=== PATIENT | female | born 1950 | race African-American/Black ===

== ENCOUNTER 2018-07-20 13:35 | Inpatient (IN) | payer MEDICARE ==
[~2018-07-20] VITALS: Ht 160 cm; Wt 73.2 kg
[2018-07-20 13:36] VITALS: BP 110/71
--- NOTE | 2018-07-20 13:36 | NUR ---
ED Nurse Note: Pt from home brought in by ambulance due to Altered level consciousness. Per famiy member, pt is more altered than usual x 3 weeks. BS check was critically high en route, 500ml NS given by EMS. Pt is awake and opens eyes but unresponsive to verbal commands, withdraws to painful stimulation such as rubbing sternum.
--- NOTE | 2018-07-20 13:40 | NUR ---
ED Nurse Note: Noted small skin tear on patient's left buttock.
--- NOTE | 2018-07-20 13:45 | NUR ---
ED Nurse Note: Patient's blood sugar was 538. Dr Carmona aware and notified
--- NOTE | 2018-07-20 14:25 | NUR ---
ED Nurse Note: Pt taken to CT.
[2018-07-20 14:30] VITALS: BP_SYST 105; BP_SYST 95; BP_DIAS 66; BP_DIAS 72
--- NOTE | 2018-07-20 14:31 | NUR ---
ED Nurse Note: Pt back from CT.
[2018-07-20 14:39] LABS: HEMATOCRIT 38.8 % (37.0-47.0); HEMOGLOBIN 12.7 G/DL (12.0-16.0); MEAN CORPUSCULAR VOLUME 91 FL (80-99); PLATELET COUNT 144 K/UL (150-450); RED BLOOD COUNT 4.25 M/UL (4.20-5.40); RED CELL DISTRIBUTION WIDTH 14.7 % (11.6-14.8); WHITE BLOOD COUNT 12.9 K/UL (4.8-10.8)
--- NOTE | 2018-07-20 15:04 | Diagnostic Imaging Report ---
Indications: Altered level of consciousness Technique: Spiral acquisitions obtained through the brain. Angled axial and coronal 5 x 5 mm slices were reconstructed. Total dose length product 1326.74 mGycm. CTDI vol(s) 70.38 mGy. Dose reduction achieved using automated exposure control Comparison: None. Findings: There is age-related enlargement of the ventricles and extra axial CSF spaces. No acute intracranial hemorrhage or edema, mass effect, nor midline shift. Normal pena-white differentiation. Normal-sized ventricles and extra axial CSF spaces. Visualized orbits and sinuses are unremarkable. Mastoids are clear. The calvarium is intact. Impression: Mild age-related volume loss Negative for acute intracranial bleed or mass effect The CT scanner at [facility] is accredited by the [employer] and the scans are performed using protocols designed to limit radiation exposure to as low as reasonably achievable to attain images of sufficient resolution adequate for diagnostic evaluation.
--- NOTE | 2018-07-20 15:08 | NUR ---
ED Nurse Note: Urine specimen sent.
[2018-07-20 15:11] LABS: ALANINE AMINOTRANSFERASE 33 U/L (12-78); ALBUMIN 2.9 G/DL (3.4-5.0); ALBUMIN/GLOBULIN RATIO 0.8 (1.0-2.7); ALKALINE PHOSPHATASE 94 U/L (46-116); ANION GAP 25 mmol/L (5-15); ASPARTATE AMINO TRANSFERASE 80 U/L (15-37); BILIRUBIN,TOTAL 1.1 MG/DL (0.2-1.0); BLOOD UREA NITROGEN 126 mg/dL (7-18); CARBON DIOXIDE 17 MMOL/L (21-32); CHLORIDE 105 MMOL/L (98-107); CKMB 14.2 NG/ML (0.0-3.6); CREATINE KINASE 2201 U/L (26-308); CREATININE 5.6 MG/DL (0.55-1.30); POTASSIUM 3.7 MMOL/L (3.5-5.1); SODIUM 147 MMOL/L (136-145)
[2018-07-20 15:13] LABS: BILIRUBIN,DIRECT 0.2 MG/DL (0.0-0.3)
[2018-07-20 15:19] LABS: APPEARANCE,URINE CLOUDY; BILIRUBIN, URINE 1+ (NEGATIVE); COLOR,URINE AMBER; GLUCOSE, URINE (UA) 4+ (NEGATIVE); KETONES,URINE 1+ (NEGATIVE); LEUKOCYTE ESTERASE ,URINE 3+ (NEGATIVE); NITRITE,URINE NEGATIVE (NEGATIVE); PH,URINE 5 (4.5-8.0); PROTEIN,URINE 3+ (NEGATIVE); UROBILINOGEN,URINE 1 MG/DL (0.0-1.0)
[2018-07-20 15:30] VITALS: BP 105/66
[2018-07-20] MEDS ORDERED: cefTRIAXone 1 GM in NS 55 ML IVPB ONE (15:45)
[2018-07-20] MEDS ORDERED: Insulin Human Regular 100units/ml 3ml IV ONE (16:00)
--- NOTE | 2018-07-20 16:28 | NUR ---
ED Nurse Note: Dr Carmona notified of BS re-check still critically high and ordered to maintain insulin rate at 10.1ml/hour.
[2018-07-20 16:45] VITALS: BP 122/90
[2018-07-20] MEDS ORDERED: Albuterol/Ipratropium 3ml neb HHN PRN (18:15)
[2018-07-20] MEDS ORDERED: Morphine Sulfate 4mg/ml Inj (IV USE ONLY) IVP PRN (18:15)
[2018-07-20] MEDS ORDERED: Miralax 17gm pkt ORAL PRN (18:15)
[2018-07-20] MEDS ORDERED: Nitroglycerin Subl 0.4mg tab SL PRN (18:15)
[2018-07-20] MEDS ORDERED: LORazepam Inj 2mg/ml 1ml IV PRN (18:15)
--- NOTE | 2018-07-20 18:23 | Diagnostic Imaging Report ---
Indication: Chest pain Technique: One view of the chest Comparison: none Findings: There is bilateral perihilar interstitial congestion. No focal airspace consolidation. The heart size is normal. The pleural spaces are clear. Impression: Bilateral perihilar interstitial congestion.
--- NOTE | 2018-07-20 18:28 | NUR ---
ED Nurse Note: No new orders to change insulin rate.
--- NOTE | 2018-07-20 19:08 | NUR ---
HAND-OFF: Report given to Maggy CARPIO.
--- NOTE | 2018-07-20 19:18 | Emergency Room Report ---
History of Present Illness General Chief Complaint: Altered Mental Status Source: Family Member, Medical Record, EMS Present Illness HPI 68-year-old female presents ED for evaluation. Brought in by EMS for altered mental status. Sister at bedside states she's been more altered than baseline for the last 3 weeks. Upon arrival patient unable to answer any additional questions. No signs of distress. Accu-Chek critically high. History of diabetes. No fevers or chills. No cough or congestion. No other aggravating relieving factors. No other associated symptoms Allergies: Coded Allergies: No Known Allergies (Unverified , 07/20/18) Patient History Past Medical History: DM, HTN Past Surgical History: none Pertinent Family History: none Social History: Denies: smoking, alcohol use, drug use Now: No Immunizations: UTD Reviewed Nursing Documentation: PMH: Agreed; PSxH: Agreed Nursing Documentation-PMH Past Medical History: No History, Except For Hx Hypertension: Yes Hx Diabetes: Yes Review of Systems All Other Systems: limited Physical Exam Vital Signs Date Time Temp Pulse Resp B/P (MAP) Pulse Ox O2 Delivery O2 Flow Rate FiO2 07/20/18 13:36 96.3 71 14 100/41 94 Room Air Sp02 EP Interpretation: reviewed, normal General Appearance: lethargic Head: normocephalic ENT: hearing grossly normal, normal pharynx, no angioedema, normal voice Neck: full range of motion, supple/symm/no masses Respiratory: chest non-tender, lungs clear, normal breath sounds, speaking full sentences Cardiovascular #1: regular rate, rhythm, no edema Gastrointestinal: normal bowel sounds, non tender, soft, non-distended, no guarding, no rebound Rectal: deferred Genitourinary: no CVA tenderness Musculoskeletal: normal inspection Neurologic: other - nonverbal Psychiatric: other - nonverbal Skin: normal inspection Lymphatic: normal inspection Procedures Critical Care Time Critical Care Time i. I feel this is a highly complex case requiring extensive working including EKG/Rhythm strip, Xray/CT/US, Blood/urine lab work, repeat exams while in ED, and administration of strong opiates/narcotics for pain control, admission to hospital or close patient follow up. Total time: 75 min bedside evaluation and treatment excludes procedures (EKG). Reason for critical care: DKA, severe sepsis, rhabdo, renal failure, UTI Possible complications: hypotension, hypertension, OR, shock, arrhythmias, metabolic acidosis, end organ damage, respiratory failure. Interventions: Labs, IV fluids, EKG, chest x-ray, CT head. ABG. Insulin bolus and insulin drip. Broad-spectrum antibiotics Course: Patient brought in for altered mental status. CT head negative. chest x-ray shows congestion. Lactic markedly elevated. Troponin positive. CK greater than 2000. BUN/creatinine elevated. Glucose greater than 700 with acidosis noted. Insulin bolus and drip started. Given 30 mL per KG fluid bolus. Given antibiotics. Consultations: nursing staff, EMS, family Performed by: Dr Carmona Tolerated well condition = critical j. because of unstable vital signs this patient had a condition that could potentially threaten life or limb. I feel this is a critical patient who required my full attention while patient was considered critical. Total Critical Care Time excluding procedures was greater than 35 minutes Medical Decision Making Diagnostic Impression: Primary Impression: DKA, type 1 Qualified Codes: E10.11 - Type 1 diabetes mellitus with ketoacidosis with coma Additional Impressions: Dehydration Severe sepsis UTI (urinary tract infection) Qualified Codes: N39.0 - Urinary tract infection, site not specified Rhabdomyolysis Qualified Codes: M62.82 - Rhabdomyolysis Elevated troponin Pancreatitis Qualified Codes: K85.90 - Acute pancreatitis without necrosis or infection, unspecified ER Course Hospital Course 68-year-old female presenting to ED with altered mental status, glucometer critically high Differential diagnoses include: ETOH/drug ingestion, sepsis, DKA Clinical course Patient placed on stretcher. 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 After initial history and physical I ordered labs, IVFS, EKG, CXR, CT Head Labs-glucose greater than 700, anion gap elevated, bicarbonate low, BUN/ creatinine elevated. Leukocytosis noted. lactate elevated, UA +bacteria. CK > 2000. Lipase > 1000. Trop > 0.3 ABG shows low HCO3 Chest x-ray unremarkable CT head negative EKG - NSR, no acute ischemic changes interpreted by me Patient given 30 mL per KG fluid bolus. Insulin bolus and insulin drip started. Given broad-spectrum antibiotics Initially hypotensive. Improved after fluid bolus Patient seen by Philippe. Not stable for transfer. Will be admitted here to the ICU. Case discussed with Dr. Kerns and he agreed to accept the patient to his service for further care and support i. I feel this is a highly complex case requiring extensive working including EKG/Rhythm strip, Xray/CT/US, Blood/urine lab work, repeat exams while in ED, and administration of strong opiates/narcotics for pain control, admission to hospital or close patient follow up. j. because of unstable vital signs this patient had a condition that could potentially threaten life or limb. I feel this is a critical patient who required my full attention while patient was considered critical. Total Critical Care Time excluding procedures was greater than 35 minutes diagnosis - DKA, dehydration, severe sepsis, UTI, rhabdomyolysis, elevated troponin, pancreatitis admitted to ICU in critical condition Labs Test 07/20/18 13:55 07/20/18 15:00 07/20/18 15:27 07/20/18 16:00 White Blood Count 12.9 K/UL (4.8-10.8) Red Blood Count 4.25 M/UL (4.20-5.40) Hemoglobin 12.7 G/DL (12.0-16.0) Hematocrit 38.8 % (37.0-47.0) Mean Corpuscular Volume 91 FL (80-99) Mean Corpuscular Hemoglobin 29.9 PG (27.0-31.0) Mean Corpuscular Hemoglobin Concent 32.8 G/DL (32.0-36.0) Red Cell Distribution Width 14.7 % (11.6-14.8) Platelet Count 144 K/UL (150-450) Mean Platelet Volume 10.0 FL (6.5-10.1) Neutrophils (%) (Auto) % (45.0-75.0) Lymphocytes (%) (Auto) % (20.0-45.0) Monocytes (%) (Auto) % (1.0-10.0) Eosinophils (%) (Auto) % (0.0-3.0) Basophils (%) (Auto) % (0.0-2.0) Differential Total Cells Counted 100 Neutrophils % (Manual) 70 % (45-75) Lymphocytes % (Manual) 11 % (20-45) Monocytes % (Manual) 4 % (1-10) Eosinophils % (Manual) 0 % (0-3) Basophils % (Manual) 0 % (0-2) Band Neutrophils 15 % (0-8) Platelet Estimate Adequate Platelet Morphology Normal Anisocytosis 1+ Crenated Cell Occasional Schistocytes Occasional Sodium Level 147 MMOL/L (136-145) Potassium Level 3.7 MMOL/L (3.5-5.1) Chloride Level 105 MMOL/L (98-107) Carbon Dioxide Level 17 MMOL/L (21-32) Anion Gap 25 mmol/L (5-15) Blood Urea Nitrogen 126 mg/dL (7-18) Creatinine 5.6 MG/DL (0.55-1.30) Estimat Glomerular Filtration Rate 9.1 mL/min (>60) Glucose Level 723 MG/DL (74-106) Lactic Acid Level 5.40 mmol/L (0.4-2.0) 5.00 mmol/L (0.66-2.22) Calcium Level 9.0 MG/DL (8.5-10.1) Total Bilirubin 1.1 MG/DL (0.2-1.0) Direct Bilirubin 0.2 MG/DL (0.0-0.3) Aspartate Amino Transf (AST/SGOT) 80 U/L (15-37) Alanine Aminotransferase (ALT/SGPT) 33 U/L (12-78) Alkaline Phosphatase 94 U/L (46-116) Total Creatine Kinase 2201 U/L (26-308) Creatine Kinase MB 14.2 NG/ML (0.0-3.6) Creatine Kinase MB Relative Index 0.6 Troponin I 0.345 ng/mL (0.000-0.056) Pro-B-Type Natriuretic Peptide 1976 pg/mL (0-125) Total Protein 6.6 G/DL (6.4-8.2) Albumin 2.9 G/DL (3.4-5.0) Globulin 3.7 g/dL Albumin/Globulin Ratio 0.8 (1.0-2.7) Lipase 1113 U/L (73-393) Acetone Level Negative (NEGATIVE) Urine Color Rosanne Urine Appearance Cloudy Urine pH 5 (4.5-8.0) Urine Specific [place] 1.025 (1.005-1.035) Urine Protein 3+ (NEGATIVE) Urine Glucose (UA) 4+ (NEGATIVE) Urine Ketones 1+ (NEGATIVE) Urine Blood 5+ (NEGATIVE) Urine Nitrite Negative (NEGATIVE) Urine Bilirubin 1+ (NEGATIVE) Urine Ictotest Negative (NEGATIVE) Urine Urobilinogen 1 MG/DL (0.0-1.0) Urine Leukocyte Esterase 3+ (NEGATIVE) Urine RBC 20-30 /HPF (0 - 2) Urine WBC Tntc /HPF (0 - 2) Urine Squamous Epithelial Cells Few /LPF (NONE/OCC) Urine Bacteria Moderate /HPF (NONE) Arterial Blood pH 7.325 (7.350-7.450) Arterial Blood Partial Pressure CO2 25.8 mmHg (35.0-45.0) Arterial Blood Partial Pressure O2 59.7 mmHg (75.0-100.0) Arterial Blood HCO3 13.1 mmol/L (22.0-26.0) Arterial Blood Oxygen Saturation 86.9 % (95-100) Arterial Blood Base Excess -11.3 (-2-2) Reed Test Positive EKG Diagnostic Results Rate: normal Rhythm: NSR ST Segments: no acute changes ASA given to the pt in ED: No Rhythm Strip Diag. Results EP Interpretation: yes Rhythm: NSR, no PVC's, no ectopy Chest X-Ray Diagnostic Results Chest X-Ray Diagnostic Results : Chest X-Ray Ordered: Yes # of Views/Limited/Complete: 1 View Indication: Other EP Interpretation: Yes Interpretation: no consolidation, no effusion, no pneumothorax, no acute cardiopulmonary disease, other - perihilar congestion Impression: No acute disease Electronically Signed by: Electronically signed by Graham Carmona MD CT/MRI/US Diagnostic Results CT/MRI/US Diagnostic Results : Imaging Test Ordered: CT Head Impression no acute process Last Vital Signs Date Time Temp Pulse Resp B/P (MAP) Pulse Ox O2 Delivery O2 Flow Rate FiO2 07/20/18 16:45 97.2 79 19 122/90 100 Room Air Status: improved Disposition: ADMITTED INPATIENT Condition: Critical Scripts Unable to Obtain Active Prescriptions or Reported Meds Referrals: [facility] (PCP) Graham Carmona MD Jul 20, 2018 19:18
--- NOTE | 2018-07-20 19:26 | NUR ---
ED Nurse Note: ATTEMPTED TO GIVE TELEPHONE REPORT TO ICU. WAS TOLD TO CALL BACK IN 10 MINUTES
--- NOTE | 2018-07-20 19:40 | NUR ---
ED Nurse Note: PT WAS TRANSFERRED ON [facility]NEY WITH CLAUDINE RN AND JEFFREY EMT. PT ACCOMPANIED WITH IT ANALYST, AMBUBAG, AND RED KIT. PT BELONINGS SENT WITH PT. PT SHOWS NO ACUTE SIGNS OF DISTRESS. VSS AT THE MOMENT.
--- NOTE | 2018-07-20 19:41 | NUR ---
ED Nurse Note: TELEPHONE REPORT GIVE TO SHIRIN ESCOTO
[2018-07-20] MEDS ORDERED: Dextrose 50% 25ml Syringe IV PRN (20:00)
[2018-07-20] MEDS ORDERED: Insulin Human Regular 100units/ml 3ml IV PRN ×2 (20:00)
[2018-07-20] MEDS ORDERED: Insulin Rate Change 1 Each MISC PRN (20:00)
--- NOTE | 2018-07-20 20:00 | NUR ---
NURSE NOTES: Received report from Maggy CARPIO. Admitted patient from ER accompanied by RN and ekg monitor tech via [employer], patient came from home.patient in bed with eyes open, mumbling. Oxygen saturation room air 92-96%. HOB elevated.Under the care of Dr. Kerns, Dr. Richard placed an order noted and carried out. Body assessment done noted patient with #1, #2 left buttock pressure sore 1cmx 1cm no drainage, initial treatment done. Will order p200 for wound management. Blood glucose 325mg/dl will follow insulin drip algorithm 3 protocol. [place] draining with dark yellow urine with strong foul odor. IV line intact on right F/A and Left AC no s/s of infiltration. Son at bedside. Will send belongings to family. Bed alarm on. Bed locked and in low position. Will continue plan of care.
--- NOTE | 2018-07-20 20:08 | NUR ---
CASE MANAGEMENT: INITIAL REVIEW 68 YO F ITA FROM HOME CC: AMS PMHx: DM. HTN. SI:DEHYDRATION. HYPERGLYCEMIA. DKA. T 96.3 HR 71 RR 14 B/P 100/41 SATS 94% ON RA WBC 12.9 NA 147 CO2 17 AGAP 25 BUN 25 BUN 126 CR 5.6 GLU 723 LACTIC ACID 5.4/5 TBILI 1.1 AST 80 TOTAL CK 2201 TROPONIN 0.345N BNP 1976 LIPASE 1113 ACETONE (-) ABGs pH 7.325 pCO2 25.8 pO2 59.7 HCO3 13.1 O2 SAT 86.9 BE -11.3 IS: NS BOLUS X1 CEFTRIAXONE IV X1 INSULIN HUMAN REGULAR 6 UNIT INSULIN DRIP X1 PATIENT ADMITTED TO ICU 07/20/2018 @ 3068 DCP: PATIENT TO BE DISCHARGED TO HOME ONCE MEDICALLY CLEARED. PLAN OF CARE: GLYCEMIC CONTROL AND MONITORING Addendum: 07/22/18 at 1840 by Lisa Betancur CM INTERQUAL MET
--- NOTE | 2018-07-20 20:48 | History & Physical ---
History and Physical History & Physicial Last 24 Hour Vital Signs Date Time Temp Pulse Resp B/P (MAP) Pulse Ox O2 Delivery O2 Flow Rate FiO2 07/20/18 19:59 97.3 88 20 96/56 96 Room Air 07/20/18 16:45 97.2 79 19 122/90 100 Room Air 07/20/18 15:30 97.0 77 20 105/66 98 Room Air 07/20/18 14:30 85 16 95/72 97 Room Air 07/20/18 13:36 71 14 110/71 95 Room Air 07/20/18 13:36 71 14 Room Air 07/20/18 13:36 96.3 71 14 100/41 94 Room Air The patient was seen and examined at bedside and all new and available data was reviewed in the patients chart. F/U Labs Dr. Richard Pulmonary consult Dr. Bowling, Nephrology consult (Patient was seen earlier today. Signature timestamp does not reflect patient encounter time) Jimmie Quick MD, MD Jul 20, 2018 20:48
--- NOTE | 2018-07-20 21:15 | NUR ---
NURSE NOTES:Seen and examined by Dr. Kerns with new order noted and carried out. Son will come back tomorrow and will bring the patient medication list.
[2018-07-20] MEDS: Heparin 5000 units/ml inj SUBQ SCH (21:52)
[2018-07-20 23:09] LABS: HEMATOCRIT 35.7 % (37.0-47.0); HEMOGLOBIN 12.2 G/DL (12.0-16.0); MEAN CORPUSCULAR VOLUME 88 FL (80-99); PLATELET COUNT 123 K/UL (150-450); RED BLOOD COUNT 4.03 M/UL (4.20-5.40); WHITE BLOOD COUNT 9.1 K/UL (4.8-10.8)
[2018-07-20 23:23] LABS: ALANINE AMINOTRANSFERASE 42 U/L (12-78); ALBUMIN 2.4 G/DL (3.4-5.0); ALBUMIN/GLOBULIN RATIO 0.7 (1.0-2.7); ALKALINE PHOSPHATASE 81 U/L (46-116); ANION GAP 23 mmol/L (5-15); ASPARTATE AMINO TRANSFERASE 116 U/L (15-37); BILIRUBIN,TOTAL 0.5 MG/DL (0.2-1.0); BLOOD UREA NITROGEN 114 mg/dL (7-18); CALCIUM 8.3 MG/DL (8.5-10.1); CARBON DIOXIDE 16 MMOL/L (21-32); CHLORIDE 119 MMOL/L (98-107); CREATININE 5.1 MG/DL (0.55-1.30); PHOSPHORUS 1.7 MG/DL (2.5-4.9); SODIUM 158 MMOL/L (136-145)
[2018-07-20 23:24] LABS: POTASSIUM 2.6 MMOL/L (3.5-5.1)
[2018-07-20] MEDS: Zosyn 3.375gm q12h **Extended infusion IVPB SCH ×2 (23:55)
[2018-07-21] VITALS (17 sets, daily range): BP systolic 91–160; BP diastolic 35–67
--- NOTE | 2018-07-21 00:15 | NUR ---
NURSE NOTES: Left message to Dr. Kerns and Dr. Richard regarding patient potassium level 2.9, sodium level 158 lactic acid 9.30 and blood glucose 56mg/dl held insulin drip and gave Dextrose 50ml and will repeat blood glucose in 30 min. Still waiting for MD to call back. Charge nurse aware.
--- NOTE | 2018-07-21 00:57 | NUR ---
NURSE NOTES: Dr. Richard gave orders noted and carried out. charge nurse aware.
[2018-07-21] MEDS ORDERED: Insulin Human Regular 100units/ml 3ml IV PRN ×3 (01:00→20:15)
[2018-07-21] MEDS ORDERED: Insulin Rate Change 1 Each MISC PRN ×2 (01:00→20:45)
[2018-07-21] MEDS ORDERED: D5 1/2NS 1,000 ML IV SCH (02:00)
--- NOTE | 2018-07-21 02:00 | NUR ---
NURSE NOTES: Blood glucose 97mg/dl Insulin drip 0.5ml/hr. no s/s of hypo/hyperglycemia. Hampton draining. On D5 1/2 NS at 75cc/hr. Sinus rishi on engineering technologist, HR 55. repositioned. will continue to monitor patient.
--- NOTE | 2018-07-21 04:00 | NUR ---
NURSE NOTES: Blood glucose 138mg/dl, insulin drip 1.5ml/hr algorithm 2. Repositioned. oral care provided. Temp 98.7 axillary. no s/s of acute distress noted. Will continue plan of care.
[2018-07-21 05:21] LABS: INR 1.3 (0.9-1.1)
[2018-07-21 05:24] LABS: HEMATOCRIT 33.1 % (37.0-47.0); HEMOGLOBIN 11.2 G/DL (12.0-16.0); MEAN CORPUSCULAR VOLUME 90 FL (80-99); PLATELET COUNT 110 K/UL (150-450); RED BLOOD COUNT 3.69 M/UL (4.20-5.40); RED CELL DISTRIBUTION WIDTH 14.5 % (11.6-14.8); WHITE BLOOD COUNT 9.2 K/UL (4.8-10.8)
[2018-07-21 05:34] LABS: ALANINE AMINOTRANSFERASE 42 U/L (12-78); ALBUMIN 2.1 G/DL (3.4-5.0); ALBUMIN/GLOBULIN RATIO 0.7 (1.0-2.7); ALKALINE PHOSPHATASE 71 U/L (46-116); ANION GAP 18 mmol/L (5-15); ASPARTATE AMINO TRANSFERASE 121 U/L (15-37); BILIRUBIN,DIRECT 0.3 MG/DL (0.0-0.3); BILIRUBIN,TOTAL 0.7 MG/DL (0.2-1.0); BLOOD UREA NITROGEN 107 mg/dL (7-18); CALCIUM 7.9 MG/DL (8.5-10.1); CARBON DIOXIDE 19 MMOL/L (21-32); CHLORIDE 120 MMOL/L (98-107); CREATININE 4.5 MG/DL (0.55-1.30); PHOSPHORUS 2.1 MG/DL (2.5-4.9); SODIUM 157 MMOL/L (136-145)
--- NOTE | 2018-07-21 06:00 | NUR ---
NURSE NOTES: Blood glucose 178mg/dl, insulin drip 2.5ml/hr algorithm 2. Repositioned. oral care provided. Temp 98.4 axillary. no s/s of acute distress noted. Will continue plan of care.
--- NOTE | 2018-07-21 06:20 | NUR ---
NURSE NOTES: Dr. Kerns gave order KCL 40 mEq IV, left message regarding magnesium level of 1.7. charge nurse aware.
--- NOTE | 2018-07-21 07:29 | NUR ---
HAND-OFF: Report given to Carloz CARPIO.
--- NOTE | 2018-07-21 07:40 | NUR ---
NURSE NOTES: here to do CXR
[2018-07-21] MEDS: Zosyn 3.375gm q12h **Extended infusion IVPB SCH ×4 (08:43→21:02)
[2018-07-21] MEDS: Heparin 5000 units/ml inj SUBQ SCH ×2 (08:43→21:00)
--- NOTE | 2018-07-21 09:29 | Pulmonolgy Critical Care Note ---
Critical Care - Asmt/Plan Problems: (1) Acute encephalopathy (2) ATN (acute tubular necrosis) (3) Hyperosmolar coma (4) Severe sepsis (5) DKA, type 1 Respiratory: monitor respiratory rate, adjust FIO2, CXR Cardiac: continue to monitor HR/BP Renal: F/U I&O, keep IV fluid, check electrolytes, other - increase IV fluids, Infectious Disease: check cultures, continue antibiotics Gastrointestinal: hold feedings Endocrine: monitor blood sugar, start insulin drip, other Hematologic: transfuse if hgb<8.5 Neurologic: PRN Ativan, PRN Morphine, keep patient comfortable Affect: PRN ativan Time Spent (Minutes): 40 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, 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, 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 - Objective Last 24 Hour Vital Signs Date Time Temp Pulse Resp B/P (MAP) Pulse Ox O2 Delivery O2 Flow Rate FiO2 07/21/18 08:00 Nasal Cannula 3.0 07/21/18 04:00 62 07/21/18 04:00 Nasal Cannula 2.0 07/21/18 00:00 Nasal Cannula 2.0 07/20/18 23:48 55 07/20/18 20:44 Nasal Cannula 2.0 28 07/20/18 20:44 97 Nasal Cannula 2.0 28 07/20/18 20:05 57 07/20/18 20:05 Nasal Cannula 2.0 07/20/18 19:59 97.3 88 20 96/56 96 Room Air 07/20/18 16:45 97.2 79 19 122/90 100 Room Air 07/20/18 15:30 97.0 77 20 105/66 98 Room Air 07/20/18 14:30 85 16 95/72 97 Room Air 07/20/18 13:36 71 14 110/71 95 Room Air 07/20/18 13:36 71 14 Room Air 07/20/18 13:36 96.3 71 14 100/41 94 Room Air Status: obtunded Condition: critical HEENT: atraumatic Neck: full ROM Lungs: clear Heart: HR/BP stable, HR/BP unstable Abdomen: soft, non-tender Extremities: no C/C/E, edema Accucheck: 186 Critical Care - Subjective ROS Limited/Unobtainable: Yes ICU Day: 2 Interval Events: 68-year-old female presents ED for evaluation of altered mental status for the last 3 weeks. Upon arrival patient unable to answer any additional questions. No signs of distress. Accu-Chek critically high. Pt was in DKA and admitted to ICU for further work up. FI02: 28 Fluids: 1/2 NS 75 cc/hour Drips: Insulin I&O: Intake and Output 07/20/18 07/21/18 19:00 07:00 Intake Total 2055 ml 1141.04 ml Output Total 761 ml Balance 2055 ml 380.04 ml Intake IV Total 2055 ml 1141.04 ml Output Urine Total 761 ml # Voids 200 CXR: perihilar congestion Labs: Laboratory Tests Test 07/20/18 13:55 07/20/18 15:00 07/20/18 15:27 07/20/18 16:00 White Blood Count 12.9 K/UL (4.8-10.8) H Red Blood Count 4.25 M/UL (4.20-5.40) Hemoglobin 12.7 G/DL (12.0-16.0) Hematocrit 38.8 % (37.0-47.0) Mean Corpuscular Volume 91 FL (80-99) Mean Corpuscular Hemoglobin 29.9 PG (27.0-31.0) Mean Corpuscular Hemoglobin Concent 32.8 G/DL (32.0-36.0) Red Cell Distribution Width 14.7 % (11.6-14.8) Platelet Count 144 K/UL (150-450) L Mean Platelet Volume 10.0 FL (6.5-10.1) Neutrophils (%) (Auto) % (45.0-75.0) Lymphocytes (%) (Auto) % (20.0-45.0) Monocytes (%) (Auto) % (1.0-10.0) Eosinophils (%) (Auto) % (0.0-3.0) Basophils (%) (Auto) % (0.0-2.0) Differential Total Cells Counted 100 Neutrophils % (Manual) 70 % (45-75) Lymphocytes % (Manual) 11 % (20-45) L Monocytes % (Manual) 4 % (1-10) Eosinophils % (Manual) 0 % (0-3) Basophils % (Manual) 0 % (0-2) Band Neutrophils 15 % (0-8) H Platelet Estimate Adequate Platelet Morphology Normal Anisocytosis 1+ Crenated Cell Occasional Schistocytes Occasional Sodium Level 147 MMOL/L (136-145) H Potassium Level 3.7 MMOL/L (3.5-5.1) Chloride Level 105 MMOL/L (98-107) Carbon Dioxide Level 17 MMOL/L (21-32) L Anion Gap 25 mmol/L (5-15) H Blood Urea Nitrogen 126 mg/dL (7-18) H Creatinine 5.6 MG/DL (0.55-1.30) H Estimat Glomerular Filtration Rate 9.1 mL/min (>60) Glucose Level 723 MG/DL (74-106) *H Lactic Acid Level 5.40 mmol/L (0.4-2.0) H 5.00 mmol/L (0.66-2.22) H Calcium Level 9.0 MG/DL (8.5-10.1) Total Bilirubin 1.1 MG/DL (0.2-1.0) H Direct Bilirubin 0.2 MG/DL (0.0-0.3) Aspartate Amino Transf (AST/SGOT) 80 U/L (15-37) H Alanine Aminotransferase (ALT/SGPT) 33 U/L (12-78) Alkaline Phosphatase 94 U/L (46-116) Total Creatine Kinase 2201 U/L (26-308) H Creatine Kinase MB 14.2 NG/ML (0.0-3.6) H Creatine Kinase MB Relative Index 0.6 Troponin I 0.345 ng/mL (0.000-0.056) Pro-B-Type Natriuretic Peptide 1976 pg/mL (0-125) H Total Protein 6.6 G/DL (6.4-8.2) Albumin 2.9 G/DL (3.4-5.0) L Globulin 3.7 g/dL Albumin/Globulin Ratio 0.8 (1.0-2.7) L Lipase 1113 U/L (73-393) H Acetone Level Negative (NEGATIVE) Urine Color Rosanne Urine Appearance Cloudy Urine pH 5 (4.5-8.0) Urine Specific [place] 1.025 (1.005-1.035) Urine Protein 3+ (NEGATIVE) H Urine Glucose (UA) 4+ (NEGATIVE) H Urine Ketones 1+ (NEGATIVE) H Urine Blood 5+ (NEGATIVE) H Urine Nitrite Negative (NEGATIVE) Urine Bilirubin 1+ (NEGATIVE) H Urine Ictotest Negative (NEGATIVE) Urine Urobilinogen 1 MG/DL (0.0-1.0) H Urine Leukocyte Esterase 3+ (NEGATIVE) H Urine RBC 20-30 /HPF (0 - 2) H Urine WBC Tntc /HPF (0 - 2) H Urine Squamous Epithelial Cells Few /LPF (NONE/OCC) Urine Bacteria Moderate /HPF (NONE) H Arterial Blood pH 7.325 (7.350-7.450) Arterial Blood Partial Pressure CO2 25.8 mmHg (35.0-45.0) L Arterial Blood Partial Pressure O2 59.7 mmHg (75.0-100.0) L Arterial Blood HCO3 13.1 mmol/L (22.0-26.0) *L Arterial Blood Oxygen Saturation 86.9 % (95-100) *L Arterial Blood Base Excess -11.3 (-2-2) *L Reed Test Positive Test 07/20/18 22:55 07/21/18 00:22 07/21/18 04:05 White Blood Count 9.1 K/UL (4.8-10.8) 9.2 K/UL (4.8-10.8) Red Blood Count 4.03 M/UL (4.20-5.40) L 3.69 M/UL (4.20-5.40) L Hemoglobin 12.2 G/DL (12.0-16.0) 11.2 G/DL (12.0-16.0) L Hematocrit 35.7 % (37.0-47.0) L 33.1 % (37.0-47.0) L Mean Corpuscular Volume 88 FL (80-99) 90 FL (80-99) Mean Corpuscular Hemoglobin 30.2 PG (27.0-31.0) 30.2 PG (27.0-31.0) Mean Corpuscular Hemoglobin Concent 34.2 G/DL (32.0-36.0) 33.7 G/DL (32.0-36.0) Red Cell Distribution Width 14.0 % (11.6-14.8) 14.5 % (11.6-14.8) Platelet Count 123 K/UL (150-450) L 110 K/UL (150-450) L Mean Platelet Volume 8.4 FL (6.5-10.1) 11.4 FL (6.5-10.1) H Neutrophils (%) (Auto) % (45.0-75.0) % (45.0-75.0) Lymphocytes (%) (Auto) % (20.0-45.0) % (20.0-45.0) Monocytes (%) (Auto) % (1.0-10.0) % (1.0-10.0) Eosinophils (%) (Auto) % (0.0-3.0) % (0.0-3.0) Basophils (%) (Auto) % (0.0-2.0) % (0.0-2.0) Differential Total Cells Counted 100 100 Neutrophils % (Manual) 73 % (45-75) 70 % (45-75) Lymphocytes % (Manual) 10 % (20-45) L 7 % (20-45) L Monocytes % (Manual) 3 % (1-10) 3 % (1-10) Eosinophils % (Manual) 0 % (0-3) 0 % (0-3) Basophils % (Manual) 0 % (0-2) 0 % (0-2) Band Neutrophils 14 % (0-8) H 20 % (0-8) H Platelet Estimate Decreased L Decreased L Platelet Morphology Normal Normal Sodium Level 158 MMOL/L (136-145) #H 157 MMOL/L (136-145) H Potassium Level 2.6 MMOL/L (3.5-5.1) *L 3.0 MMOL/L (3.5-5.1) L Chloride Level 119 MMOL/L (98-107) H 120 MMOL/L (98-107) H Carbon Dioxide Level 16 MMOL/L (21-32) L 19 MMOL/L (21-32) L Anion Gap 23 mmol/L (5-15) H 18 mmol/L (5-15) H Blood Urea Nitrogen 114 mg/dL (7-18) H 107 mg/dL (7-18) H Creatinine 5.1 MG/DL (0.55-1.30) H 4.5 MG/DL (0.55-1.30) H Estimat Glomerular Filtration Rate 10.2 mL/min (>60) 11.6 mL/min (>60) Glucose Level 122 MG/DL (74-106) #H 150 MG/DL (74-106) H Lactic Acid Level 9.30 mmol/L (0.4-2.0) H 8.00 mmol/L (0.66-2.22) H 5.30 mmol/L (0.4-2.0) H Calcium Level 8.3 MG/DL (8.5-10.1) L 7.9 MG/DL (8.5-10.1) L Phosphorus Level 1.7 MG/DL (2.5-4.9) L 2.1 MG/DL (2.5-4.9) L Magnesium Level 1.6 MG/DL (1.8-2.4) L 1.7 MG/DL (1.8-2.4) L Total Bilirubin 0.5 MG/DL (0.2-1.0) 0.7 MG/DL (0.2-1.0) Aspartate Amino Transf (AST/SGOT) 116 U/L (15-37) H 121 U/L (15-37) H Alanine Aminotransferase (ALT/SGPT) 42 U/L (12-78) 42 U/L (12-78) Alkaline Phosphatase 81 U/L (46-116) 71 U/L (46-116) Total Protein 5.8 G/DL (6.4-8.2) L 5.3 G/DL (6.4-8.2) L Albumin 2.4 G/DL (3.4-5.0) L 2.1 G/DL (3.4-5.0) L Globulin 3.4 g/dL 3.2 g/dL Albumin/Globulin Ratio 0.7 (1.0-2.7) L 0.7 (1.0-2.7) L Anisocytosis 1+ Ludwig Cells Occasional Prothrombin Time 13.2 SEC (9.30-11.50) H Prothromb Time International Ratio 1.3 (0.9-1.1) H Activated Partial Thromboplast Time 25 SEC (23-33) Direct Bilirubin 0.3 MG/DL (0.0-0.3) Mara Richard MD Jul 21, 2018 09:29
[2018-07-21] MEDS ORDERED: Amikacin Rx to dose MISC PRN (09:30)
--- NOTE | 2018-07-21 09:38 | Diagnostic Imaging Report ---
EXAM: XR Chest, 1 View CLINICAL HISTORY: F/U TECHNIQUE: Frontal view of the chest. COMPARISON: Chest x-ray 07/20/18 1404 FINDINGS: Lungs: Hyperinflated lungs of COPD. Bilateral perihilar opacities, similar to prior study, may be edema or infiltrate. Pleural space: Unremarkable. No pneumothorax. Heart: Unremarkable. No cardiomegaly. Mediastinum: Unremarkable. Bones/joints: Unremarkable. IMPRESSION: Hyperinflated lungs of COPD. Bilateral perihilar opacities, similar to prior study, may be edema or infiltrate.
--- NOTE | 2018-07-21 10:00 | NUR ---
NURSE NOTES: 2D echo for pt. pt in no distress.
[2018-07-21] MEDS: D5 1/2NS 1,000 ML IV SCH ×2 (10:04→12:28)
[2018-07-21 10:08] LABS: CREATINE KINASE 3785 U/L (26-308)
[2018-07-21] MEDS: Insulin Human Regular 100units/ml 3ml IV PRN ×2 (10:27→15:46)
--- NOTE | 2018-07-21 10:40 | NUR ---
CASE MANAGEMENT: REVIEW SI: DEHYDRATION . HYPERGLYCEMIA . DKA T 99.3 HR 54 RR 14 BP 160/60 SAT 97% NC/3L NA 157 K+ 3.0 BUN 97 CR 3.8 LACTATE DEHYDROGENASE 475 IS: KCl 10mEq IVF @100ML/HR INSULIN GTT MAG SULFATE IVF @100ML/HR AMIKACIN IV X1 NaPO4 IV X1 ICU STATUS PATIENT IS FROM HOME
[2018-07-21] MEDS ORDERED: AMIKACIN IV SCH (11:00)
[2018-07-21] MEDS ORDERED: NS IV SCH (11:00)
[2018-07-21] MEDS ORDERED: Vancomycin 1 GM in NS 275 ML IVPB SCH (11:00)
--- NOTE | 2018-07-21 11:24 | Infectious Diseases Prog Note ---
Assessment/Plan Assessment/Plan [id number] Subjective Allergies: Coded Allergies: SULFA (SULFONAMIDE ANTIBIOTICS) (Verified Allergy, Unknown, 07/20/18) Objective Vital Signs Last 24 Hour Vital Signs Date Time Temp Pulse Resp B/P (MAP) Pulse Ox O2 Delivery O2 Flow Rate FiO2 07/21/18 10:00 68 16 138/47 (77) 99 07/21/18 09:00 56 15 103/43 (63) 99 07/21/18 08:00 79 16 160/60 (93) 97 07/21/18 08:00 Nasal Cannula 3.0 07/21/18 07:00 99.0 56 16 117/35 (62) 97 07/21/18 04:00 62 07/21/18 04:00 Nasal Cannula 2.0 07/21/18 00:00 Nasal Cannula 2.0 07/20/18 23:48 55 07/20/18 20:44 Nasal Cannula 2.0 28 07/20/18 20:44 97 Nasal Cannula 2.0 28 07/20/18 20:05 57 07/20/18 20:05 Nasal Cannula 2.0 07/20/18 19:59 97.3 88 20 96/56 96 Room Air 07/20/18 16:45 97.2 79 19 122/90 100 Room Air 07/20/18 15:30 97.0 77 20 105/66 98 Room Air 07/20/18 14:30 85 16 95/72 97 Room Air 07/20/18 13:36 71 14 110/71 95 Room Air 07/20/18 13:36 71 14 Room Air 07/20/18 13:36 96.3 71 14 100/41 94 Room Air Height (Feet): 5 Height (Inches): 3.00 Weight (Pounds): 158 Laboratory Tests Test 07/20/18 13:55 07/20/18 15:00 07/20/18 15:27 07/20/18 16:00 White Blood Count 12.9 K/UL (4.8-10.8) H Red Blood Count 4.25 M/UL (4.20-5.40) Hemoglobin 12.7 G/DL (12.0-16.0) Hematocrit 38.8 % (37.0-47.0) Mean Corpuscular Volume 91 FL (80-99) Mean Corpuscular Hemoglobin 29.9 PG (27.0-31.0) Mean Corpuscular Hemoglobin Concent 32.8 G/DL (32.0-36.0) Red Cell Distribution Width 14.7 % (11.6-14.8) Platelet Count 144 K/UL (150-450) L Mean Platelet Volume 10.0 FL (6.5-10.1) Neutrophils (%) (Auto) % (45.0-75.0) Lymphocytes (%) (Auto) % (20.0-45.0) Monocytes (%) (Auto) % (1.0-10.0) Eosinophils (%) (Auto) % (0.0-3.0) Basophils (%) (Auto) % (0.0-2.0) Differential Total Cells Counted 100 Neutrophils % (Manual) 70 % (45-75) Lymphocytes % (Manual) 11 % (20-45) L Monocytes % (Manual) 4 % (1-10) Eosinophils % (Manual) 0 % (0-3) Basophils % (Manual) 0 % (0-2) Band Neutrophils 15 % (0-8) H Platelet Estimate Adequate Platelet Morphology Normal Anisocytosis 1+ Crenated Cell Occasional Schistocytes Occasional Sodium Level 147 MMOL/L (136-145) H Potassium Level 3.7 MMOL/L (3.5-5.1) Chloride Level 105 MMOL/L (98-107) Carbon Dioxide Level 17 MMOL/L (21-32) L Anion Gap 25 mmol/L (5-15) H Blood Urea Nitrogen 126 mg/dL (7-18) H Creatinine 5.6 MG/DL (0.55-1.30) H Estimat Glomerular Filtration Rate 9.1 mL/min (>60) Glucose Level 723 MG/DL (74-106) *H Lactic Acid Level 5.40 mmol/L (0.4-2.0) H 5.00 mmol/L (0.66-2.22) H Calcium Level 9.0 MG/DL (8.5-10.1) Total Bilirubin 1.1 MG/DL (0.2-1.0) H Direct Bilirubin 0.2 MG/DL (0.0-0.3) Aspartate Amino Transf (AST/SGOT) 80 U/L (15-37) H Alanine Aminotransferase (ALT/SGPT) 33 U/L (12-78) Alkaline Phosphatase 94 U/L (46-116) Total Creatine Kinase 2201 U/L (26-308) H Creatine Kinase MB 14.2 NG/ML (0.0-3.6) H Creatine Kinase MB Relative Index 0.6 Troponin I 0.345 ng/mL (0.000-0.056) Pro-B-Type Natriuretic Peptide 1976 pg/mL (0-125) H Total Protein 6.6 G/DL (6.4-8.2) Albumin 2.9 G/DL (3.4-5.0) L Globulin 3.7 g/dL Albumin/Globulin Ratio 0.8 (1.0-2.7) L Lipase 1113 U/L (73-393) H Acetone Level Negative (NEGATIVE) Urine Color Rosanne Urine Appearance Cloudy Urine pH 5 (4.5-8.0) Urine Specific [place] 1.025 (1.005-1.035) Urine Protein 3+ (NEGATIVE) H Urine Glucose (UA) 4+ (NEGATIVE) H Urine Ketones 1+ (NEGATIVE) H Urine Blood 5+ (NEGATIVE) H Urine Nitrite Negative (NEGATIVE) Urine Bilirubin 1+ (NEGATIVE) H Urine Ictotest Negative (NEGATIVE) Urine Urobilinogen 1 MG/DL (0.0-1.0) H Urine Leukocyte Esterase 3+ (NEGATIVE) H Urine RBC 20-30 /HPF (0 - 2) H Urine WBC Tntc /HPF (0 - 2) H Urine Squamous Epithelial Cells Few /LPF (NONE/OCC) Urine Bacteria Moderate /HPF (NONE) H Arterial Blood pH 7.325 (7.350-7.450) Arterial Blood Partial Pressure CO2 25.8 mmHg (35.0-45.0) L Arterial Blood Partial Pressure O2 59.7 mmHg (75.0-100.0) L Arterial Blood HCO3 13.1 mmol/L (22.0-26.0) *L Arterial Blood Oxygen Saturation 86.9 % (95-100) *L Arterial Blood Base Excess -11.3 (-2-2) *L Reed Test Positive Test 07/20/18 22:55 07/21/18 00:22 07/21/18 04:05 07/21/18 09:10 White Blood Count 9.1 K/UL (4.8-10.8) 9.2 K/UL (4.8-10.8) Red Blood Count 4.03 M/UL (4.20-5.40) L 3.69 M/UL (4.20-5.40) L Hemoglobin 12.2 G/DL (12.0-16.0) 11.2 G/DL (12.0-16.0) L Hematocrit 35.7 % (37.0-47.0) L 33.1 % (37.0-47.0) L Mean Corpuscular Volume 88 FL (80-99) 90 FL (80-99) Mean Corpuscular Hemoglobin 30.2 PG (27.0-31.0) 30.2 PG (27.0-31.0) Mean Corpuscular Hemoglobin Concent 34.2 G/DL (32.0-36.0) 33.7 G/DL (32.0-36.0) Red Cell Distribution Width 14.0 % (11.6-14.8) 14.5 % (11.6-14.8) Platelet Count 123 K/UL (150-450) L 110 K/UL (150-450) L Mean Platelet Volume 8.4 FL (6.5-10.1) 11.4 FL (6.5-10.1) H Neutrophils (%) (Auto) % (45.0-75.0) % (45.0-75.0) Lymphocytes (%) (Auto) % (20.0-45.0) % (20.0-45.0) Monocytes (%) (Auto) % (1.0-10.0) % (1.0-10.0) Eosinophils (%) (Auto) % (0.0-3.0) % (0.0-3.0) Basophils (%) (Auto) % (0.0-2.0) % (0.0-2.0) Differential Total Cells Counted 100 100 Neutrophils % (Manual) 73 % (45-75) 70 % (45-75) Lymphocytes % (Manual) 10 % (20-45) L 7 % (20-45) L Monocytes % (Manual) 3 % (1-10) 3 % (1-10) Eosinophils % (Manual) 0 % (0-3) 0 % (0-3) Basophils % (Manual) 0 % (0-2) 0 % (0-2) Band Neutrophils 14 % (0-8) H 20 % (0-8) H Platelet Estimate Decreased L Decreased L Platelet Morphology Normal Normal Sodium Level 158 MMOL/L (136-145) #H 157 MMOL/L (136-145) H Potassium Level 2.6 MMOL/L (3.5-5.1) *L 3.0 MMOL/L (3.5-5.1) L Chloride Level 119 MMOL/L (98-107) H 120 MMOL/L (98-107) H Carbon Dioxide Level 16 MMOL/L (21-32) L 19 MMOL/L (21-32) L Anion Gap 23 mmol/L (5-15) H 18 mmol/L (5-15) H Blood Urea Nitrogen 114 mg/dL (7-18) H 107 mg/dL (7-18) H Creatinine 5.1 MG/DL (0.55-1.30) H 4.5 MG/DL (0.55-1.30) H Estimat Glomerular Filtration Rate 10.2 mL/min (>60) 11.6 mL/min (>60) Glucose Level 122 MG/DL (74-106) #H 150 MG/DL (74-106) H Lactic Acid Level 9.30 mmol/L (0.4-2.0) H 8.00 mmol/L (0.66-2.22) H 5.30 mmol/L (0.4-2.0) H 5.60 mmol/L (0.66-2.22) H Calcium Level 8.3 MG/DL (8.5-10.1) L 7.9 MG/DL (8.5-10.1) L Phosphorus Level 1.7 MG/DL (2.5-4.9) L 2.1 MG/DL (2.5-4.9) L Magnesium Level 1.6 MG/DL (1.8-2.4) L 1.7 MG/DL (1.8-2.4) L Total Bilirubin 0.5 MG/DL (0.2-1.0) 0.7 MG/DL (0.2-1.0) Aspartate Amino Transf (AST/SGOT) 116 U/L (15-37) H 121 U/L (15-37) H Alanine Aminotransferase (ALT/SGPT) 42 U/L (12-78) 42 U/L (12-78) Alkaline Phosphatase 81 U/L (46-116) 71 U/L (46-116) Total Protein 5.8 G/DL (6.4-8.2) L 5.3 G/DL (6.4-8.2) L Albumin 2.4 G/DL (3.4-5.0) L 2.1 G/DL (3.4-5.0) L Globulin 3.4 g/dL 3.2 g/dL Albumin/Globulin Ratio 0.7 (1.0-2.7) L 0.7 (1.0-2.7) L Anisocytosis 1+ Ludwig Cells Occasional Prothrombin Time 13.2 SEC (9.30-11.50) H Prothromb Time International Ratio 1.3 (0.9-1.1) H Activated Partial Thromboplast Time 25 SEC (23-33) Direct Bilirubin 0.3 MG/DL (0.0-0.3) Uric Acid 14.2 MG/DL (2.6-7.2) H Total Creatine Kinase 3785 U/L (26-308) H Current Medications Medications (Trade) Dose Ordered Sig/Sylvester Route PRN Reason Start Time Stop Time Status Last Admin Dose Admin Acetaminophen (Tylenol) 650 mg Q4H PRN ORAL Fever (Temp>100.5F) 07/20/18 18:15 08/19/18 18:14 Albuterol/ Ipratropium (Albuterol/ Ipratropium) 3 ml Q4H PRN HHN Shortness of Breath 07/20/18 18:15 07/25/18 18:14 Amikacin Protocol (Amikacin pharmacy to dose) 1 ea DAILY PRN MISC Per rx protocol 07/21/18 09:30 08/20/18 09:29 Amikacin Sulfate 450 mg/Sodium Chloride 56.8 ml @ 113.6 mls/ hr ONCE IV 07/21/18 11:00 07/21/18 13:00 Dextrose (Dextrose 50%) 25 ml Q30M PRN IV HYPOGLYCEMIA 07/21/18 01:00 08/20/18 00:59 Dextrose (Dextrose 50%) 50 ml Q30M PRN IV HYPOGLYCEMIA 07/21/18 01:00 08/20/18 00:59 Dextrose/Sodium Chloride 1,000 ml @ 150 mls/hr Q6H40M IV 07/21/18 09:30 08/20/18 09:29 07/21/18 10:04 Heparin Sodium (Porcine) (Heparin 5000 units/ml) 5,000 units EVERY 12 HOURS SUBQ 07/20/18 21:00 08/19/18 20:59 07/20/18 21:52 Insulin Human Regular (NovoLIN R) 5 units PRN PRN IV BS 200-299 07/21/18 01:00 08/20/18 00:59 07/21/18 10:27 Insulin Human Regular (NovoLIN R) 10 units PRN PRN IV BS=>300 07/21/18 01:00 08/20/18 00:59 Insulin Human Regular 100 units/ Sodium Chloride 101 ml @ 0 mls/hr Q24H IV 07/21/18 01:00 08/20/18 00:59 07/21/18 10:25 Lorazepam (Ativan 2mg/ml 1ml) 2 mg Q2H PRN IV agitation 07/20/18 18:15 07/27/18 18:14 Magnesium Sulfate 100 ml @ 100 mls/hr Q1H IVPB 07/21/18 12:45 07/21/18 14:44 Miscellaneous Medication (Insulin Rate Change) 1 ea PRN PRN MISC hyperglycemia 07/21/18 01:00 08/20/18 00:59 07/21/18 02:00 Morphine Sulfate (Morphine Sulfate) 4 mg Q4H PRN IVP Severe Pain (Pain Scale 7-10) 07/20/18 18:15 07/27/18 18:14 Nitroglycerin (Ntg) 0.4 mg Q5M PRN SL Prn Chest Pain 07/20/18 18:15 08/19/18 18:14 Ondansetron HCl (Zofran) 4 mg Q6H PRN IVP Nausea & Vomiting 07/20/18 18:15 08/19/18 18:14 Piperacillin Sod/ Tazobactam Sod 3.375 gm/Sodium Chloride 110 ml @ 27.5 mls/hr EVERY 12 HOURS IVPB 07/20/18 22:00 07/27/18 21:59 07/21/18 08:43 Polyethylene Glycol (Miralax) 17 gm DAILYPRN PRN ORAL Constipation 07/20/18 18:15 08/19/18 18:14 Potassium Chloride 40 meq/ Sodium Chloride 570 ml @ 142.5 mls/ hr ONCE ONCE IVPB 07/21/18 09:30 07/21/18 13:29 UNV Sodium Phosphate 30 mm/Sodium Chloride 285 ml @ 47.5 mls/hr ONCE ONCE IV 07/21/18 13:00 07/21/18 18:59 Vancomycin HCl (Vanco rx to dose) 1 ea DAILY PRN MISC Per rx protocol 07/21/18 09:30 08/20/18 09:29 Vancomycin HCl 1 gm/Sodium Chloride 275 ml @ 183.708 mls/hr ONCE IVPB 07/21/18 11:00 07/21/18 13:00 Sav Khan MD Jul 21, 2018 11:24
--- NOTE | 2018-07-21 12:00 | NUR ---
NURSE NOTES: pt repositioned, temp 99. p 200 mattress applied. heels floated and hob>30. will continue to monitor pt.
[2018-07-21] MEDS ORDERED: Sodium Phosphate 30 MM in NS 275 ML IV ONE (13:00)
[2018-07-21] MEDS ORDERED: Potassium Chloride 40 MEQ in Sodium Chloride 550 ML IVPB ONE (14:00)
--- NOTE | 2018-07-21 14:09 | Neurology Progress Note ---
Interim History Interim History Interim History NEUROLOGY CONSULTATION: Full note dictated #[id number] 68 y/o, BF of ?H who does have a PH of HTN and DM. She was bought in by EMS for altered mental status. She had apparently been more altered than baseline for the last 3 weeks. On being evaluated in the ER her Glucose was 723, she had signs of ANGELA and was hypoxic and acidotic. Her UA was c/w a UTI. ON EXAM: Arouses on DP. Moans and groans. Unable to follow commands Right VII central. Globally diminished DTRs Minimal movements in all 4s on DP. IMPRESSION: Toxic/metbolic encephalopathy with mild focal features of right VII central facial paresis. REC: Continue present Rx. Brain MRI. EEG W/U for other encephalopathy. Srinivasa Bingham M.D., M.S.P.H. Objective Physical Exam Last Vital Signs Date Time Temp Pulse Resp B/P (MAP) Pulse Ox O2 Delivery O2 Flow Rate FiO2 07/21/18 10:00 68 16 138/47 (77) 99 07/21/18 08:00 Nasal Cannula 3.0 07/21/18 07:00 99.0 07/20/18 20:44 28 Laboratory Tests Test 07/20/18 13:55 07/20/18 15:00 07/20/18 15:27 07/20/18 16:00 White Blood Count 12.9 K/UL (4.8-10.8) H Red Blood Count 4.25 M/UL (4.20-5.40) Hemoglobin 12.7 G/DL (12.0-16.0) Hematocrit 38.8 % (37.0-47.0) Mean Corpuscular Volume 91 FL (80-99) Mean Corpuscular Hemoglobin 29.9 PG (27.0-31.0) Mean Corpuscular Hemoglobin Concent 32.8 G/DL (32.0-36.0) Red Cell Distribution Width 14.7 % (11.6-14.8) Platelet Count 144 K/UL (150-450) L Mean Platelet Volume 10.0 FL (6.5-10.1) Neutrophils (%) (Auto) % (45.0-75.0) Lymphocytes (%) (Auto) % (20.0-45.0) Monocytes (%) (Auto) % (1.0-10.0) Eosinophils (%) (Auto) % (0.0-3.0) Basophils (%) (Auto) % (0.0-2.0) Differential Total Cells Counted 100 Neutrophils % (Manual) 70 % (45-75) Lymphocytes % (Manual) 11 % (20-45) L Monocytes % (Manual) 4 % (1-10) Eosinophils % (Manual) 0 % (0-3) Basophils % (Manual) 0 % (0-2) Band Neutrophils 15 % (0-8) H Platelet Estimate Adequate Platelet Morphology Normal Anisocytosis 1+ Crenated Cell Occasional Schistocytes Occasional Sodium Level 147 MMOL/L (136-145) H Potassium Level 3.7 MMOL/L (3.5-5.1) Chloride Level 105 MMOL/L (98-107) Carbon Dioxide Level 17 MMOL/L (21-32) L Anion Gap 25 mmol/L (5-15) H Blood Urea Nitrogen 126 mg/dL (7-18) H Creatinine 5.6 MG/DL (0.55-1.30) H Estimat Glomerular Filtration Rate 9.1 mL/min (>60) Glucose Level 723 MG/DL (74-106) *H Lactic Acid Level 5.40 mmol/L (0.4-2.0) H 5.00 mmol/L (0.66-2.22) H Calcium Level 9.0 MG/DL (8.5-10.1) Total Bilirubin 1.1 MG/DL (0.2-1.0) H Direct Bilirubin 0.2 MG/DL (0.0-0.3) Aspartate Amino Transf (AST/SGOT) 80 U/L (15-37) H Alanine Aminotransferase (ALT/SGPT) 33 U/L (12-78) Alkaline Phosphatase 94 U/L (46-116) Total Creatine Kinase 2201 U/L (26-308) H Creatine Kinase MB 14.2 NG/ML (0.0-3.6) H Creatine Kinase MB Relative Index 0.6 Troponin I 0.345 ng/mL (0.000-0.056) Pro-B-Type Natriuretic Peptide 1976 pg/mL (0-125) H Total Protein 6.6 G/DL (6.4-8.2) Albumin 2.9 G/DL (3.4-5.0) L Globulin 3.7 g/dL Albumin/Globulin Ratio 0.8 (1.0-2.7) L Lipase 1113 U/L (73-393) H Acetone Level Negative (NEGATIVE) Urine Color Rosanne Urine Appearance Cloudy Urine pH 5 (4.5-8.0) Urine Specific [place] 1.025 (1.005-1.035) Urine Protein 3+ (NEGATIVE) H Urine Glucose (UA) 4+ (NEGATIVE) H Urine Ketones 1+ (NEGATIVE) H Urine Blood 5+ (NEGATIVE) H Urine Nitrite Negative (NEGATIVE) Urine Bilirubin 1+ (NEGATIVE) H Urine Ictotest Negative (NEGATIVE) Urine Urobilinogen 1 MG/DL (0.0-1.0) H Urine Leukocyte Esterase 3+ (NEGATIVE) H Urine RBC 20-30 /HPF (0 - 2) H Urine WBC Tntc /HPF (0 - 2) H Urine Squamous Epithelial Cells Few /LPF (NONE/OCC) Urine Bacteria Moderate /HPF (NONE) H Arterial Blood pH 7.325 (7.350-7.450) Arterial Blood Partial Pressure CO2 25.8 mmHg (35.0-45.0) L Arterial Blood Partial Pressure O2 59.7 mmHg (75.0-100.0) L Arterial Blood HCO3 13.1 mmol/L (22.0-26.0) *L Arterial Blood Oxygen Saturation 86.9 % (95-100) *L Arterial Blood Base Excess -11.3 (-2-2) *L Reed Test Positive Test 07/20/18 22:55 07/21/18 00:22 07/21/18 04:05 07/21/18 09:10 White Blood Count 9.1 K/UL (4.8-10.8) 9.2 K/UL (4.8-10.8) Red Blood Count 4.03 M/UL (4.20-5.40) L 3.69 M/UL (4.20-5.40) L Hemoglobin 12.2 G/DL (12.0-16.0) 11.2 G/DL (12.0-16.0) L Hematocrit 35.7 % (37.0-47.0) L 33.1 % (37.0-47.0) L Mean Corpuscular Volume 88 FL (80-99) 90 FL (80-99) Mean Corpuscular Hemoglobin 30.2 PG (27.0-31.0) 30.2 PG (27.0-31.0) Mean Corpuscular Hemoglobin Concent 34.2 G/DL (32.0-36.0) 33.7 G/DL (32.0-36.0) Red Cell Distribution Width 14.0 % (11.6-14.8) 14.5 % (11.6-14.8) Platelet Count 123 K/UL (150-450) L 110 K/UL (150-450) L Mean Platelet Volume 8.4 FL (6.5-10.1) 11.4 FL (6.5-10.1) H Neutrophils (%) (Auto) % (45.0-75.0) % (45.0-75.0) Lymphocytes (%) (Auto) % (20.0-45.0) % (20.0-45.0) Monocytes (%) (Auto) % (1.0-10.0) % (1.0-10.0) Eosinophils (%) (Auto) % (0.0-3.0) % (0.0-3.0) Basophils (%) (Auto) % (0.0-2.0) % (0.0-2.0) Differential Total Cells Counted 100 100 Neutrophils % (Manual) 73 % (45-75) 70 % (45-75) Lymphocytes % (Manual) 10 % (20-45) L 7 % (20-45) L Monocytes % (Manual) 3 % (1-10) 3 % (1-10) Eosinophils % (Manual) 0 % (0-3) 0 % (0-3) Basophils % (Manual) 0 % (0-2) 0 % (0-2) Band Neutrophils 14 % (0-8) H 20 % (0-8) H Platelet Estimate Decreased L Decreased L Platelet Morphology Normal Normal Sodium Level 158 MMOL/L (136-145) #H 157 MMOL/L (136-145) H Potassium Level 2.6 MMOL/L (3.5-5.1) *L 3.0 MMOL/L (3.5-5.1) L Chloride Level 119 MMOL/L (98-107) H 120 MMOL/L (98-107) H Carbon Dioxide Level 16 MMOL/L (21-32) L 19 MMOL/L (21-32) L Anion Gap 23 mmol/L (5-15) H 18 mmol/L (5-15) H Blood Urea Nitrogen 114 mg/dL (7-18) H 107 mg/dL (7-18) H Creatinine 5.1 MG/DL (0.55-1.30) H 4.5 MG/DL (0.55-1.30) H Estimat Glomerular Filtration Rate 10.2 mL/min (>60) 11.6 mL/min (>60) Glucose Level 122 MG/DL (74-106) #H 150 MG/DL (74-106) H Lactic Acid Level 9.30 mmol/L (0.4-2.0) H 8.00 mmol/L (0.66-2.22) H 5.30 mmol/L (0.4-2.0) H 5.60 mmol/L (0.66-2.22) H Calcium Level 8.3 MG/DL (8.5-10.1) L 7.9 MG/DL (8.5-10.1) L Phosphorus Level 1.7 MG/DL (2.5-4.9) L 2.1 MG/DL (2.5-4.9) L Magnesium Level 1.6 MG/DL (1.8-2.4) L 1.7 MG/DL (1.8-2.4) L Total Bilirubin 0.5 MG/DL (0.2-1.0) 0.7 MG/DL (0.2-1.0) Aspartate Amino Transf (AST/SGOT) 116 U/L (15-37) H 121 U/L (15-37) H Alanine Aminotransferase (ALT/SGPT) 42 U/L (12-78) 42 U/L (12-78) Alkaline Phosphatase 81 U/L (46-116) 71 U/L (46-116) Total Protein 5.8 G/DL (6.4-8.2) L 5.3 G/DL (6.4-8.2) L Albumin 2.4 G/DL (3.4-5.0) L 2.1 G/DL (3.4-5.0) L Globulin 3.4 g/dL 3.2 g/dL Albumin/Globulin Ratio 0.7 (1.0-2.7) L 0.7 (1.0-2.7) L Anisocytosis 1+ [place] Cells Occasional Prothrombin Time 13.2 SEC (9.30-11.50) H Prothromb Time International Ratio 1.3 (0.9-1.1) H Activated Partial Thromboplast Time 25 SEC (23-33) Direct Bilirubin 0.3 MG/DL (0.0-0.3) Uric Acid 14.2 MG/DL (2.6-7.2) H Total Creatine Kinase 3785 U/L (26-308) H Srinivasa Bingham MD Jul 21, 2018 14:09
--- NOTE | 2018-07-21 14:50 | NUR ---
NURSE NOTES: family at bedside, was updated on status. forgot to bring home meds will try again next visit. per son, pt started to decline in last 4days. At home eats with assistance and ambulates with little assistance. does not wear o2 at home.
--- NOTE | 2018-07-21 15:59 | Consultation ---
Consult Note Assessment/Plan Renal consult dictated #[id number] Pepe Bowling MD Jul 21, 2018 15:59
--- NOTE | 2018-07-21 16:00 | Internal Med Progress Note ---
Subjective Date of Service: Jul 21, 2018 Physician Name Wei Saez Attending Physician Jimmie Kerns MD Current Medications Medications (Trade) Dose Ordered Sig/Sylvester Route PRN Reason Start Time Stop Time Status Last Admin Dose Admin Acetaminophen (Tylenol) 650 mg Q4H PRN ORAL Fever (Temp>100.5F) 07/20/18 18:15 08/19/18 18:14 Albuterol/ Ipratropium (Albuterol/ Ipratropium) 3 ml Q4H PRN HHN Shortness of Breath 07/20/18 18:15 07/25/18 18:14 Dextrose (Dextrose 50%) 25 ml Q30M PRN IV HYPOGLYCEMIA 07/21/18 01:00 08/20/18 00:59 Dextrose (Dextrose 50%) 50 ml Q30M PRN IV HYPOGLYCEMIA 07/21/18 01:00 08/20/18 00:59 Dextrose/Sodium Chloride 1,000 ml @ 150 mls/hr Q6H40M IV 07/21/18 09:30 08/20/18 09:29 07/21/18 12:28 Heparin Sodium (Porcine) (Heparin 5000 units/ml) 5,000 units EVERY 12 HOURS SUBQ 07/20/18 21:00 08/19/18 20:59 07/20/18 21:52 Insulin Human Regular (NovoLIN R) 5 units PRN PRN IV BS 200-299 07/21/18 01:00 08/20/18 00:59 07/21/18 15:46 Insulin Human Regular (NovoLIN R) 10 units PRN PRN IV BS=>300 07/21/18 01:00 08/20/18 00:59 Insulin Human Regular 100 units/ Sodium Chloride 101 ml @ 0 mls/hr Q24H IV 07/21/18 01:00 08/20/18 00:59 07/21/18 15:46 Lorazepam (Ativan 2mg/ml 1ml) 2 mg Q2H PRN IV agitation 07/20/18 18:15 07/27/18 18:14 Miscellaneous Medication (Insulin Rate Change) 1 ea PRN PRN MISC hyperglycemia 07/21/18 01:00 08/20/18 00:59 07/21/18 02:00 Morphine Sulfate (Morphine Sulfate) 4 mg Q4H PRN IVP Severe Pain (Pain Scale 7-10) 07/20/18 18:15 07/27/18 18:14 Nitroglycerin (Ntg) 0.4 mg Q5M PRN SL Prn Chest Pain 07/20/18 18:15 08/19/18 18:14 Ondansetron HCl (Zofran) 4 mg Q6H PRN IVP Nausea & Vomiting 07/20/18 18:15 08/19/18 18:14 Piperacillin Sod/ Tazobactam Sod 3.375 gm/Sodium Chloride 110 ml @ 27.5 mls/hr EVERY 12 HOURS IVPB 07/20/18 22:00 07/27/18 21:59 07/21/18 08:43 Polyethylene Glycol (Miralax) 17 gm DAILYPRN PRN ORAL Constipation 07/20/18 18:15 08/19/18 18:14 Potassium Chloride 40 meq/ Sodium Chloride 570 ml @ 142.5 mls/ hr ONCE ONCE IVPB 07/21/18 14:00 07/21/18 17:59 07/21/18 14:56 Sodium Phosphate 30 mm/Sodium Chloride 285 ml @ 47.5 mls/hr ONCE ONCE IV 07/21/18 13:00 07/21/18 18:59 07/21/18 14:14 Allergies: Coded Allergies: SULFA (SULFONAMIDE ANTIBIOTICS) (Verified Allergy, Unknown, 07/20/18) ROS Limited/Unobtainable: Yes Subjective 68 YO F admitted with altered mental status. Now diabetic ketoacidosis and UTI. Cover for Int Michael-Dr Kerns. ICU Objective Last Vital Signs Date Time Temp Pulse Resp B/P (MAP) Pulse Ox O2 Delivery O2 Flow Rate FiO2 07/21/18 14:00 56 13 114/41 (65) 100 07/21/18 12:00 Nasal Cannula 3.0 07/21/18 12:00 99.3 07/20/18 20:44 28 General Appearance: WD/WN, no apparent distress EENT: PERRL/EOMI, normal ENT inspection Neck: non-tender, normal alignment, supple, normal inspection Cardiovascular: normal peripheral pulses, normal rate, regular rhythm, no gallop/murmur, no JVD Respiratory/Chest: chest wall non-tender, lungs clear, normal breath sounds, no respiratory distress, no accessory muscle use Abdomen: normal bowel sounds, non tender, soft, no organomegaly, no mass Extremities: normal range of motion, non-tender 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0) 30.2 PG (27.0-31.0) Mean Corpuscular Hemoglobin Concent 34.2 G/DL (32.0-36.0) 33.7 G/DL (32.0-36.0) Red Cell Distribution Width 14.0 % (11.6-14.8) 14.5 % (11.6-14.8) Platelet Count 123 K/UL (150-450) L 110 K/UL (150-450) L Mean Platelet Volume 8.4 FL (6.5-10.1) 11.4 FL (6.5-10.1) H Neutrophils (%) (Auto) % (45.0-75.0) % (45.0-75.0) Lymphocytes (%) (Auto) % (20.0-45.0) % (20.0-45.0) Monocytes (%) (Auto) % (1.0-10.0) % (1.0-10.0) Eosinophils (%) (Auto) % (0.0-3.0) % (0.0-3.0) Basophils (%) (Auto) % (0.0-2.0) % (0.0-2.0) Differential Total Cells Counted 100 100 Neutrophils % (Manual) 73 % (45-75) 70 % (45-75) Lymphocytes % (Manual) 10 % (20-45) L 7 % (20-45) L Monocytes % (Manual) 3 % (1-10) 3 % (1-10) Eosinophils % (Manual) 0 % (0-3) 0 % (0-3) Basophils % (Manual) 0 % (0-2) 0 % (0-2) Band Neutrophils 14 % (0-8) H 20 % (0-8) H Platelet Estimate Decreased L Decreased L Platelet Morphology Normal Normal Sodium Level 158 MMOL/L (136-145) #H 157 MMOL/L (136-145) H Potassium Level 2.6 MMOL/L (3.5-5.1) *L 3.0 MMOL/L (3.5-5.1) L Chloride Level 119 MMOL/L (98-107) H 120 MMOL/L (98-107) H Carbon Dioxide Level 16 MMOL/L (21-32) L 19 MMOL/L (21-32) L Anion Gap 23 mmol/L (5-15) H 18 mmol/L (5-15) H Blood Urea Nitrogen 114 mg/dL (7-18) H 107 mg/dL (7-18) H Creatinine 5.1 MG/DL (0.55-1.30) H 4.5 MG/DL (0.55-1.30) H Estimat Glomerular Filtration Rate 10.2 mL/min (>60) 11.6 mL/min (>60) Glucose Level 122 MG/DL (74-106) #H 150 MG/DL (74-106) H Calcium Level 8.3 MG/DL (8.5-10.1) L 7.9 MG/DL (8.5-10.1) L Phosphorus Level 1.7 MG/DL (2.5-4.9) L 2.1 MG/DL (2.5-4.9) L Magnesium Level 1.6 MG/DL (1.8-2.4) L 1.7 MG/DL (1.8-2.4) L Total Bilirubin 0.5 MG/DL (0.2-1.0) 0.7 MG/DL (0.2-1.0) Aspartate Amino Transf (AST/SGOT) 116 U/L (15-37) H 121 U/L (15-37) H Alanine Aminotransferase (ALT/SGPT) 42 U/L (12-78) 42 U/L (12-78) Alkaline Phosphatase 81 U/L (46-116) 71 U/L (46-116) Total Protein 5.8 G/DL (6.4-8.2) L 5.3 G/DL (6.4-8.2) L Albumin 2.4 G/DL (3.4-5.0) L 2.1 G/DL (3.4-5.0) L Globulin 3.4 g/dL 3.2 g/dL Albumin/Globulin Ratio 0.7 (1.0-2.7) L 0.7 (1.0-2.7) L Anisocytosis 1+ [place] Cells Occasional Prothrombin Time 13.2 SEC (9.30-11.50) H Prothromb Time International Ratio 1.3 (0.9-1.1) H Activated Partial Thromboplast Time 25 SEC (23-33) Direct Bilirubin 0.3 MG/DL (0.0-0.3) Test 07/21/18 09:10 07/21/18 14:23 Lactic Acid Level 5.60 mmol/L (0.66-2.22) H 3.70 mmol/L (0.4-2.0) H Uric Acid 14.2 MG/DL (2.6-7.2) H Total Creatine Kinase 3785 U/L (26-308) H Intake and Output 07/20/18 07/21/18 19:00 07:00 Intake Total 2055 ml 1141.04 ml Output Total 761 ml Balance 2055 ml 380.04 ml Intake IV Total 2055 ml 1141.04 ml Output Urine Total 761 ml # Voids 200 Assessment/Plan Problem List: (1) Renal failure (ARF), acute on chronic (2) Diabetes mellitus type II, uncontrolled Assessment & Plan: Continue insulin drip (3) UTI (urinary tract infection) Assessment & Plan: Await ID and Sensitivity. Continue zosyn per ID (4) Hyperosmolar coma (5) Acute encephalopathy Status: not improved Wei Saez MD Jul 21, 2018 16:00
--- NOTE | 2018-07-21 17:57 | Cardiology Progress Note ---
Assessment/Plan Assessment/Plan The patient is seen and examined, full consult note will be dictated. Objective Last 24 Hour Vital Signs Date Time Temp Pulse Resp B/P (MAP) Pulse Ox O2 Delivery O2 Flow Rate FiO2 07/21/18 16:42 62 07/21/18 16:00 55 15 132/44 (73) 99 07/21/18 16:00 66 07/21/18 15:00 62 15 91/45 (60) 97 07/21/18 14:00 56 13 114/41 (65) 100 07/21/18 13:00 55 14 123/46 (71) 99 07/21/18 12:00 66 07/21/18 12:00 Nasal Cannula 3.0 07/21/18 12:00 99.3 54 14 117/43 (67) 97 07/21/18 11:00 54 14 120/41 (67) 98 07/21/18 10:00 68 16 138/47 (77) 99 07/21/18 09:00 56 15 103/43 (63) 99 07/21/18 08:00 69 07/21/18 08:00 79 16 160/60 (93) 97 07/21/18 08:00 Nasal Cannula 3.0 07/21/18 07:00 99.0 56 16 117/35 (62) 97 07/21/18 04:00 62 07/21/18 04:00 Nasal Cannula 2.0 07/21/18 00:00 Nasal Cannula 2.0 07/20/18 23:48 55 07/20/18 20:44 Nasal Cannula 2.0 28 07/20/18 20:44 97 Nasal Cannula 2.0 28 07/20/18 20:05 57 07/20/18 20:05 Nasal Cannula 2.0 07/20/18 19:59 97.3 88 20 96/56 96 Room Air Intake and Output 07/20/18 07/21/18 19:00 07:00 Intake Total 2055 ml 1141.04 ml Output Total 761 ml Balance 2055 ml 380.04 ml Intake IV Total 2055 ml 1141.04 ml Output Urine Total 761 ml # Voids 200 Laboratory Tests Test 07/20/18 22:55 07/21/18 00:22 07/21/18 04:05 07/21/18 09:10 White Blood Count 9.1 K/UL (4.8-10.8) 9.2 K/UL (4.8-10.8) Red Blood Count 4.03 M/UL (4.20-5.40) L 3.69 M/UL (4.20-5.40) L Hemoglobin 12.2 G/DL (12.0-16.0) 11.2 G/DL (12.0-16.0) L Hematocrit 35.7 % (37.0-47.0) L 33.1 % (37.0-47.0) L Mean Corpuscular Volume 88 FL (80-99) 90 FL (80-99) Mean Corpuscular Hemoglobin 30.2 PG (27.0-31.0) 30.2 PG (27.0-31.0) Mean Corpuscular Hemoglobin Concent 34.2 G/DL (32.0-36.0) 33.7 G/DL (32.0-36.0) Red Cell Distribution Width 14.0 % (11.6-14.8) 14.5 % (11.6-14.8) Platelet Count 123 K/UL (150-450) L 110 K/UL (150-450) L Mean Platelet Volume 8.4 FL (6.5-10.1) 11.4 FL (6.5-10.1) H Neutrophils (%) (Auto) % (45.0-75.0) % (45.0-75.0) Lymphocytes (%) (Auto) % (20.0-45.0) % (20.0-45.0) Monocytes (%) (Auto) % (1.0-10.0) % (1.0-10.0) Eosinophils (%) (Auto) % (0.0-3.0) % (0.0-3.0) Basophils (%) (Auto) % (0.0-2.0) % (0.0-2.0) Differential Total Cells Counted 100 100 Neutrophils % (Manual) 73 % (45-75) 70 % (45-75) Lymphocytes % (Manual) 10 % (20-45) L 7 % (20-45) L Monocytes % (Manual) 3 % (1-10) 3 % (1-10) Eosinophils % (Manual) 0 % (0-3) 0 % (0-3) Basophils % (Manual) 0 % (0-2) 0 % (0-2) Band Neutrophils 14 % (0-8) H 20 % (0-8) H Platelet Estimate Decreased L Decreased L Platelet Morphology Normal Normal Sodium Level 158 MMOL/L (136-145) #H 157 MMOL/L (136-145) H Potassium Level 2.6 MMOL/L (3.5-5.1) *L 3.0 MMOL/L (3.5-5.1) L Chloride Level 119 MMOL/L (98-107) H 120 MMOL/L (98-107) H Carbon Dioxide Level 16 MMOL/L (21-32) L 19 MMOL/L (21-32) L Anion Gap 23 mmol/L (5-15) H 18 mmol/L (5-15) H Blood Urea Nitrogen 114 mg/dL (7-18) H 107 mg/dL (7-18) H Creatinine 5.1 MG/DL (0.55-1.30) H 4.5 MG/DL (0.55-1.30) H Estimat Glomerular Filtration Rate 10.2 mL/min (>60) 11.6 mL/min (>60) Glucose Level 122 MG/DL (74-106) #H 150 MG/DL (74-106) H Lactic Acid Level 9.30 mmol/L (0.4-2.0) H 8.00 mmol/L (0.66-2.22) H 5.30 mmol/L (0.4-2.0) H 5.60 mmol/L (0.66-2.22) H Calcium Level 8.3 MG/DL (8.5-10.1) L 7.9 MG/DL (8.5-10.1) L Phosphorus Level 1.7 MG/DL (2.5-4.9) L 2.1 MG/DL (2.5-4.9) L Magnesium Level 1.6 MG/DL (1.8-2.4) L 1.7 MG/DL (1.8-2.4) L Total Bilirubin 0.5 MG/DL (0.2-1.0) 0.7 MG/DL (0.2-1.0) Aspartate Amino Transf (AST/SGOT) 116 U/L (15-37) H 121 U/L (15-37) H Alanine Aminotransferase (ALT/SGPT) 42 U/L (12-78) 42 U/L (12-78) Alkaline Phosphatase 81 U/L (46-116) 71 U/L (46-116) Total Protein 5.8 G/DL (6.4-8.2) L 5.3 G/DL (6.4-8.2) L Albumin 2.4 G/DL (3.4-5.0) L 2.1 G/DL (3.4-5.0) L Globulin 3.4 g/dL 3.2 g/dL Albumin/Globulin Ratio 0.7 (1.0-2.7) L 0.7 (1.0-2.7) L Anisocytosis 1+ [place] Cells Occasional Prothrombin Time 13.2 SEC (9.30-11.50) H Prothromb Time International Ratio 1.3 (0.9-1.1) H Activated Partial Thromboplast Time 25 SEC (23-33) Direct Bilirubin 0.3 MG/DL (0.0-0.3) Uric Acid 14.2 MG/DL (2.6-7.2) H Total Creatine Kinase 3785 U/L (26-308) H Test 07/21/18 14:23 07/21/18 17:20 Lactic Acid Level 3.70 mmol/L (0.4-2.0) H Pending Sodium Level Pending Potassium Level Pending Chloride Level Pending Carbon Dioxide Level Pending Blood Urea Nitrogen Pending Creatinine Pending Estimat Glomerular Filtration Rate Pending Glucose Level Pending Hemoglobin A1c Pending Calcium Level Pending Ammonia Pending Lactate Dehydrogenase Pending Vitamin B12 Level Pending Vitamin D 25-Hydroxy Pending 25-Hydroxy Vitamin D2 Pending 25-Hydroxy Vitamin D3 Pending Folate Pending Thyroid Stimulating Hormone (TSH) Pending Rapid Plasma Reagin Pending Abdelrahman Cardoso MD Jul 21, 2018 17:57
[2018-07-21 18:01] LABS: BLOOD UREA NITROGEN 98 mg/dL (7-18); CALCIUM 7.7 MG/DL (8.5-10.1); CARBON DIOXIDE 17 MMOL/L (21-32); CREATININE 4.1 MG/DL (0.55-1.30); SODIUM 134 MMOL/L (136-145)
[2018-07-21 18:03] LABS: AMMONIA 72 umol/L (11-32)
[2018-07-21 18:10] LABS: ANION GAP 2 mmol/L (5-15); CHLORIDE 115 MMOL/L (98-107); POTASSIUM 2.5 MMOL/L (3.5-5.1)
--- NOTE | 2018-07-21 18:30 | History and Physical Report ---
DATE OF ADMISSION: 07/20/2018 CHIEF COMPLAINT: Altered mental status. HISTORY OF PRESENT ILLNESS: This is a 68-year-old female with past medical history significant for diabetes type 2, hypertension, Alzheimer's, who presented to the hospital accompanied with the son due to altered mental status. According to the son, who the history has been taken from due to the patient's mental status, the patient has been like usual state about a week ago. Decreased oral intake, poor appetite, however, she was drinking half of Ensure. Her status progressively worsened in the past 36 hours to the point that she became suddenly altered today and the patient was subsequently transported to the hospital for further evaluation and workup. Shortly after initial evaluation in the emergency, the patient was admitted to the hospital with altered mental status, most likely secondary to toxic metabolic encephalopathy as well as DKA. PAST MEDICAL HISTORY: As above. History of hypertension, diabetes type 2, Alzheimer's disease . MEDICATIONS: At home, please refer to medication reconciliation. ALLERGIES: To sulfa medications. SOCIAL HISTORY: No smoking, alcohol, or drugs. FAMILY HISTORY: Noncontributory. REVIEW OF SYSTEMS: Very limited secondary to the patient's status. No fever or chills. No head trauma. No double vision. No seizure activity. No bowel or urine incontinence. PHYSICAL EXAMINATION: VITAL SIGNS: On admission, temperature 98.2, pulse of 71, respiration 14, blood pressure 100/41. GENERAL: The patient is awake only with deep stimuli, responding to open her eyes, cannot follow commands, positive stupor. HEAD AND NECK: Pupils equal and reactive to light. Anicteric. Neck was supple. No JVD. LUNGS: Good air entry. No wheeze or rhonchi. Decreased in the bases. HEART: S1, S2. Regular rhythm. No murmur or gallops. ABDOMEN: Soft, nondistended, nontender. Positive bowel sounds. EXTREMITIES: No cyanosis, clubbing, or edema. NEUROLOGIC: Very limited secondary to the patient's status. The patient cannot follow command, however, responded to deep stimuli by opening her eyes, cannot follow but occasionally tracking. RECTAL: Refused and deferred. PSYCHIATRIC: Mood and affect, unable to obtain. LABORATORY AND DIAGNOSTIC DATA: Laboratory on admission from the ER is significant for sodium 147, potassium 3.7, chloride 105, bicarbonate 17, BUN 126, creatinine 5.6, GFR is 9.1, glucose of 723, lactic acid 5.4, calcium 9.0, total bilirubin 1.1, direct bilirubin of 0.2, AST of 18, AST, ALT of 33, alkaline phosphatase 94. Total CK of 2201. Troponin 0.345. ProBNP 1976. Albumin level 2.9. Lipase is 1113. WBC of 12, hemoglobin of 12, hematocrit 38, platelet is 144,000. ABG, pH is 7.325, pCO2 of 25, pO2 of 59, saturation 86. PT 11, INR 1.3, PTT of 25. Urine drug screen, positive protein, +4 glucose, positive ketones, 20-30 rbc, tainted wbc, +3 leukocytes. Acetone level is negative. Chest x-ray, bilateral perihilar interstitial congestion. CT of the head showed mild age-related volume loss; negative for acute intracranial bleeding or mass effect. ASSESSMENT: 1. Altered mental status, most likely acute toxic metabolic encephalopathy. 2. DKA. 3. Rhabdomyolysis. 4. Acute kidney injury. 5. Possible UTI. 6. Hypotension, most likely secondary to dehydration and hypovolemia, however, cannot rule out septic shock at this time. 7. Pancreatitis. 8. Mild elevation of troponin, possible acute coronary syndrome. 9. Lactic acidosis. 10. Metabolic acidosis. PLAN: Admit the patient to ICU. We will follow up with Dr. Richard, Pulmonary/Critical Care consultation, Dr. Pepe Bowling from Nephrology. Code status at this time is Full Code. Discussed with the son extensively at the bedside. Follow up with septic workup. Start the patient on broad-spectrum antibiotic, Zosyn. 2D echo and we will monitor laboratory. Insulin drip as per DKA protocol. Jimmie Kerns M.D. DR: Camila JOB#: [id number] CC:
--- NOTE | 2018-07-21 18:43 | NUR ---
NURSE NOTES: called md ahmadi to inform k 2.7, anion 2. pt on 2units insulin drip and had KCL replaced 30meq ivpb with iv 20meq. received order to repeat BMP, mg. call back with results.
--- NOTE | 2018-07-21 19:30 | Consultation ---
DATE OF CONSULTATION: 07/21/2018 INFECTIOUS DISEASE CONSULTATION CONSULTING PHYSICIAN: Sav Khan M.D. REQUESTING PHYSICIAN: Mara Richard M.D. REASON FOR CONSULTATION: Evaluation of the patient for possible sepsis and antibiotic management. HISTORY OF PRESENT ILLNESS: The patient is a 68-year-old female, who was brought to this medical center because of altered level of consciousness. According to the notes, the patient's mental status has worsened over the last 3 weeks. At home, the patient was able to walk and talk, however, the patient was found to be altered. The patient's glucose showed critically high. The patient has presented to ICU, started on insulin drip, and Infectious Disease consultation has been requested for further evaluation of the patient's antibiotic management. PAST MEDICAL HISTORY: 1. Diabetes. 2. Dementia. 3. Hypertension. MEDICATION: Vancomycin, amikacin, and Zosyn. ALLERGIES: Sulfa. FAMILY HISTORY: Noncontributory. REVIEW OF SYSTEMS: Unobtainable. PHYSICAL EXAMINATION: VITAL SIGNS: Temperature 99, pulse 86, respiratory rate 18, and blood pressure 138/42. HEENT: No pale conjunctivae. No icterus. NECK: No lymphadenopathy. CHEST: Clear. HEART: S1 and S2. ABDOMEN: Soft. EXTREMITIES: No cyanosis. NEUROLOGIC: Lethargic. LABORATORY DATA: WBC 9.2, hemoglobin 11, and platelets 110,000. UA too numerous to count white blood cells. BUN 107, creatinine 4.5, AST 121, ALT 42, and alkaline phosphatase 71. Glucose at the time of admission 723. Chest x-ray hyperinflated lungs/chronic obstructive pulmonary disease and bilateral perihilar opacity. Head CT unremarkable. ASSESSMENT: The patient is a 68-year-old female with, 1. Probable urinary tract infection. 2. Probable aspiration pneumonia. 3. Probable sepsis. 4. Afebrile. 5. Hyperglycemia, most likely the reason for the patient's altered level of consciousness. PLAN: 1. We will continue the patient on Zosyn, hold vancomycin and amikacin. 2. Monitor CBC. 3. Monitor BMP. 4. Monitor cultures (blood, urine, sputum). 5. Monitor chest x-ray. 6. Based on the patient's clinical course and labs, we will do further recommendations. Thank you for this consultation. I will follow the patient with you during this hospitalization. Sav Khan M.D. DR: BON JOB#: [id number] CC:
--- NOTE | 2018-07-21 19:30 | NUR ---
NURSE NOTES: Received report from Nico RN. Patient awake mumbling, no s/s of acute distress noted. on 3 liters via N/C Oxygen saturation 100%. HOB elevated.On p200 for wound management. On insulin drip 2ml/hr algorithm 2 protocol. Hampton draining with gage yellow urine with strong foul odor. IV line intact on right F/A, Right wrist #22 and Left AC no s/s of infiltration. On D5W at 150cc/hr. Bed alarm on. Bed locked and in low position. Will continue plan of care.
[2018-07-21 20:05] LABS: ANION GAP 15 mmol/L (5-15); BLOOD UREA NITROGEN 97 mg/dL (7-18); CALCIUM 7.6 MG/DL (8.5-10.1); CARBON DIOXIDE 18 MMOL/L (21-32); CHLORIDE 120 MMOL/L (98-107); CREATININE 3.8 MG/DL (0.55-1.30); SODIUM 153 MMOL/L (136-145)
--- NOTE | 2018-07-21 20:12 | NUR ---
NURSE NOTES: blood glucose is 143mg/dl will follow protocol will change to algorithm 3.
--- NOTE | 2018-07-21 20:40 | NUR ---
NURSE NOTES: Insulin drip need to verify from the pharmacy still waiting to verify and waiting for the new insulin drip label. Charge nurse aware.
--- NOTE | 2018-07-21 20:48 | NUR ---
NURSE NOTES: spoke with [facility] Pharmacist if they will bring the insulin drip label, per [facility] will check with radiology technologist.
--- NOTE | 2018-07-21 21:05 | NUR ---
NURSE NOTES: called [facility] Pharmacist still waiting for the insulin drip label charge nurse aware.
[2018-07-21 21:52] LABS: APPEARANCE,URINE CLOUDY; BILIRUBIN, URINE NEGATIVE (NEGATIVE); COLOR,URINE PALE YELLOW; GLUCOSE, URINE (UA) 2+ (NEGATIVE); KETONES,URINE NEGATIVE (NEGATIVE); LEUKOCYTE ESTERASE ,URINE 3+ (NEGATIVE); NITRITE,URINE NEGATIVE (NEGATIVE); PH,URINE 5 (4.5-8.0); PROTEIN,URINE 2+ (NEGATIVE); UROBILINOGEN,URINE NORMAL MG/DL (0.0-1.0)
--- NOTE | 2018-07-21 22:10 | NUR ---
NURSE NOTES: Blood glucose 108mg/dl, insulin drip 1ml/hr algorithm 3. Repositioned. oral care provided. Temp 98.4axillary. no s/s of acute distress noted. Will continue plan of care.
--- NOTE | 2018-07-21 22:15 | Consultation ---
DATE OF CONSULTATION: 07/21/2018 NEPHROLOGY CONSULTATION CONSULTING PHYSICIAN: Pepe Bowling M.D. REFERRING PHYSICIAN: Jmimie Kerns M.D. REASON FOR CONSULTATION: Renal failure. HISTORY OF PRESENT ILLNESS: This is a 68-year-old female, who was admitted from ED for change in mental status. The patient was found to have severe hypernatremia and renal failure with BUN of 126, creatinine 5.6, also blood sugar of 723. She is diabetic. Currently, she is getting D5 half-normal saline at 150 mL an hour and her BUN and creatinine are 107 and 4.5 respectively. Serum sodium has increased to 157. The patient is unable to provide any history. History is obtained from the chart. PAST MEDICAL HISTORY: Besides diabetes, the patient has also hypertension. MEDICATIONS: Reviewed in the EMR. SOCIAL HISTORY: No history of smoking or alcohol abuse. ALLERGIES: No known drug allergies. REVIEW OF SYSTEMS: Unobtainable. PHYSICAL EXAMINATION: GENERAL: The patient is an elderly female, in no acute distress. VITAL SIGNS: Blood pressure is 114/41, pulse is 56, temperature 99.3, respiratory rate is 13. HEENT: Somewhat pale conjunctivae. Anicteric sclerae. NECK: Supple. LUNGS: Clear to auscultation. HEART: S1, S2 without murmurs or rubs. ABDOMEN: Soft, nontender. EXTREMITIES: No cyanosis or edema. LABORATORY FINDINGS: The chemistry panel shows serum sodium 158, potassium 2.6, chloride 119, CO2 16, BUN 114, creatinine 5.1, blood sugar is 150, calcium 7.9, phosphorus 2.1. CBC shows WBC of 9200, hematocrit is 33.1, hemoglobin is 11.2, platelets 110,000. The UA as of 07/20/2018 showed 3+ protein, 20-30 rbc's per high-powered field, too numerous to count wbc's. ABG as of yesterday shows pH of 7.325, pCO2 of 26, pO2 of 60. ASSESSMENT: This is a 68-year-old female, who was brought in by paramedics for change in mental status where she was found to have hyperosmolar state as a result of uncontrolled diabetes. She has acute renal failure mostly from prerenal azotemia although she may have also underlying CKD. Also, acute renal failure may have been caused by acute tubular necrosis as well. She has urinary tract infection. She has hypokalemia, which has improved. Latest serum potassium is 3.0. PLAN: I would take the liberty and change the IV fluid to D5W to correct hypernatremia. IV magnesium will be given as needed in addition to potassium to correct the hypomagnesemia. The patient is already on Zosyn for UTI. Laboratories will be followed and further recommendations will be given based on those results. Thank you very much, Dr. Kerns, for this consultation. Pepe Bowling M.D. DR: Sheng JOB#: [id number] CC: NOA
--- NOTE | 2018-07-21 22:30 | Consultation ---
DATE OF CONSULTATION: 07/21/2018 ENDOCRINOLOGY CONSULTATION CONSULTING PHYSICIAN: Luke Moran M.D. REFERRING PHYSICIAN: Jimmie Kerns M.D. REASON FOR CONSULTATION: Diabetic ketoacidosis. HISTORY OF PRESENT ILLNESS: The patient is a 68-year-old female, who has a history of diabetes. She is a [place] person brought to the hospital for altered mental status. Paramedics brought her. The patient has been more altered than baseline for the past three days and unable to provide any additional questions. No signs of distress. Sugar was critically high. The patient was evaluated in emergency department and the chemistry showed glucose of 726, sodium 147, potassium 3.7, chloride 107, bicarb 17, BUN of 126 with a creatinine of 5.6, and anion gap of 25. The patient's lipase was elevated at 1113 and CK was elevated at 2201. Lactic acid was elevated at 5.4, so the patient was admitted to the ICU for insulin drip infusion as well as treatment. I was called to manage hyperglycemia, observation, and treatment. PAST MEDICAL HISTORY: Diabetes and hypertension. PAST SURGICAL HISTORY: None. FAMILY HISTORY: Noncontributory. SOCIAL HISTORY: No smoking, alcohol, or drug use. REVIEW OF SYSTEMS: Unobtainable and is limited. LABORATORY DATA: Discussed in history of present illness. MEDICATIONS AT HOME: Reviewed and reconciled. PHYSICAL EXAMINATION: GENERAL: The patient is confused. VITAL SIGNS: Blood pressure is 100/51, pulse 71, respiratory rate of 30, and temperature of 96.2 degrees. HEENT: Pupils are equal and reactive to light. NECK: No JVD. HEART: Regular. LUNGS: Decreased breath sounds. ABDOMEN: Positive bowel sounds. EXTREMITIES: Trace edema. DIAGNOSES: 1. Severe hyperglycemia. 2. Lactic acidosis. 3. Renal failure. 4. Pancreatitis. PLAN: Toxicology screen is negative for acetone level therefore and the urine is only 1+ for ketones due to gap acidosis, most likely due to lactic acidosis. Anyhow, the patient needs to be treated with insulin drip due to severe hyperglycemia, but the drip will be titrated to control it. Electrolytes will be followed closely and repleted. I will follow the patient closely during the hospital stay. Thank you, Dr. Kerns, for the courtesy of this consultation. Luke Moran M.D. DR: Obinna JOB#: [id number] CC:
--- NOTE | 2018-07-21 22:59 | NUR ---
NURSE NOTES: Dr. Kerns made aware regarding labs potassium 3, sodium 153, ammonia level 72 with new order KCL 40mEq IV noted and carried out.
--- NOTE | 2018-07-21 23:45 | Consultation ---
DATE OF CONSULTATION: 07/21/2018 NEUROLOGY CONSULTATION CONSULTING PHYSICIAN: Srinivasa Bingham M.D. REQUESTING PHYSICIAN: Jimmie Kerns M.D. HISTORY: Ms. Clarke Lopez is a 68-year-old, black lady, of unknown handedness, who does have past history of hypertension and diabetes mellitus. She was functioning relatively well until approximately 3 weeks ago when her sister noticed that she was not as bright, and over the next few days, she became progressively more altered with regard to her mental state. Eventually, the paramedics were called in and she was brought into the [facility] Emergency Room on 07/20/2018. On being evaluated in the emergency room, her blood glucose was elevated to 723. She had signs of acute kidney injury. She was hypoxic and significantly acidotic, and in addition, she had urinary tract infection. Since then, she has been admitted to the intensive care unit and all these problems are being corrected. She however continues to be significantly altered with regard to her mental state and thus this consultation was requested by Dr. Kerns. The patient herself is unable to give me any history. PAST MEDICAL HISTORY: Significant for hypertension and diabetes mellitus. PERSONAL HISTORY: Home: She lives with family. Work: She is retired. Habits: None as per chart. PRESENT MEDICATIONS: Potassium chloride, sodium phosphate, magnesium sulfate, vancomycin, amikacin, insulin, Zosyn, heparin for DVT prophylaxis, Ativan p.r.n., Zofran p.r.n., MiraLAX p.r.n., morphine p.r.n., Tylenol p.r.n., nitroglycerin p.r.n., and DuoNeb inhaler p.r.n. PHYSICAL EXAMINATION: GENERAL: She is a well-developed, well-nourished, black lady, lying in an ICU bed, in no acute distress. VITAL SIGNS: Pulse 68 per minute, blood pressure 138/47 mmHg, respirations 16 per minute, and temperature 99 degrees Fahrenheit. HEAD: Normocephalic and atraumatic. EENT: Examination benign. NECK: No neck rigidity was observed. NEUROLOGIC EXAMINATION: MENTAL STATUS EXAMINATION: She was sleeping when I went to see her, but could be aroused with deep painful stimuli. When aroused, she was able to moan and groan, but was unable to communicate in any manner. Further mental status testing was impossible. SPEECH: She only moaned and groaned and thus, formal speech testing was impossible. LANGUAGE: She was unable to comprehend or express herself. CRANIAL NERVE EXAMINATION: II: She did blink to threat on both sides. III, IV & : The external ocular movements were present on oculocephalic maneuvers. The pupils were 3 mm in diameter, equal, round, regular, and reactive sluggishly to light. V & VII: The corneal reflexes were present bilaterally, but were diminished. She also had definite right VII central facial paresis. VIII: She seemed to be able to hear loud sounds and had no nystagmus. IX & X: The gag reflex was present, but significantly diminished and delayed. XI: The sternocleidomastoids and trapezii did function. XII: The tongue was in the midline without any fasciculations or atrophy. MOTOR SYSTEM: The tone was normal in all four extremities. Examination of muscle mass revealed no focal wasting. Examination of power was impossible to perform because of her inability to cooperate. When deep painful stimuli were applied, she moved all four extremities minimally. SENSORY EXAMINATION: She responded appropriately to deep pain. Other sensory modalities could not be tested. REFLEXES: Trace+ and bilaterally symmetrical at the biceps, triceps, brachioradialis, and knees; zero at both ankles. The plantar responses were flexor bilaterally. COORDINATION, STANCE & GAIT: Could not be tested. DIAGNOSTIC IMPRESSION: 1. Ms. Clarke Lopez is a 68-year-old, black lady, of unknown handedness, who does have past history of hypertension and diabetes mellitus, who was brought to the hospital by the paramedics for three-week history of altered mental state, which had significantly worsened on the day of admission. On being evaluated in the emergency room, she was noted to be significantly hyperglycemic, had signs of acute kidney injury, was hypoxic and acidotic, and had a urinary tract infection. Since then, she has been treated for these problems, but continues to be significantly altered with regard to her mental state. 2. On neurological examination, at this time, she does arouse on deep painful stimuli, but is unable to communicate in any manner. She does moan and groan and is unable to follow even simple commands. She has a right VII central facial paresis, globally diminished deep tendon reflexes that are symmetrical, and minimal movements in all four extremities. 3. CT scan of the brain without contrast reveals atrophy and deep white matter changes, but no definite acute pathology. 4. Her laboratory data on admission revealed a blood glucose elevated to 723, sodium elevated at 147, chloride elevated at 105, BUN elevated at 126 with a creatinine elevated at 5.6, CK elevated at 2201, and albumin low at 2.9. The CBC revealed a WBC count elevated at 12,900 and hemoglobin borderline normal at 12.7 G. The arterial blood gas revealed a pH at 7.32, pCO2 at 25.8, and pO2 at 59.7 with low bicarbonate of 13.1. Her urinalysis revealed 3+ leukocyte esterase, 20-30 red blood cells, and too numerous to count white blood cells per high-power field. 5. The patient's history and neurological examination are most compatible with a significant toxic metabolic encephalopathy related to the hyperglycemia, acute kidney injury, hypoxia, and an acute infectious process, however, the right VII central facial paresis is a bothersome finding and could be indicative of focal brain pathology. RECOMMENDATIONS: 1. Agree with management thus far. 2. Continue to correct the patient's toxic metabolic imbalances. 3. An MRI scan of the brain will be ordered to evaluate the patient for her facial paresis and altered mental state. 4. An EEG will be ordered to evaluate the patient for the degree and type of cerebral dysfunction. 5. The patient will be worked up for other treatable causes of encephalopathy with in addition to the laboratory tests already done, a B12 level, folate level, vitamin D level, RPR, ESR, and TSH. 6. As soon as the patient is more alert, she should be mobilized with the help of physical and occupational therapy. Thank you for entrusting me with the care of Ms. Lopez. I shall follow her with you. Srinivasa Bingham M.D., M.S.P.H. DR: JESUS JOB#: [id number] NOA
[2018-07-22] VITALS (24 sets, daily range): BP systolic 82–140; BP diastolic 37–59
--- NOTE | 2018-07-22 00:04 | NUR ---
NURSE NOTES: Blood glucose 121mg/dl, insulin drip 3ml/hr algorithm 3. Repositioned. Hampton draining. oral care provided. no s/s of acute distress noted. Will continue plan of care.
--- NOTE | 2018-07-22 01:00 | Consultation ---
DATE OF CONSULTATION: 07/21/2018 CARDIOLOGY CONSULTATION CONSULTING PHYSICIAN: Abdelrahman Cardoso M.D. REFERRING PHYSICIAN: Jimmie Kerns M.D. REASON FOR CONSULTATION: Management of hypotension with prolongation of QT interval. HISTORY OF PRESENT ILLNESS: The patient is a very unfortunate 68-year-old black [place] female, who is brought in by EMS for altered level of consciousness. The patient has been more altered than baseline in the past three weeks. At the time of arrival to the emergency department, blood pressure was 100/41 mmHg and pulse rate of 71. The patient had initial workup in the emergency department including CBC, which showed leukocytosis with 15% bandemia suggestive of possible infectious process. Chest x-ray was significant for right middle and lower lobe infiltration highly suggestive of pneumonia. Chemistry in the emergency department was significant for severe hypernatremia, hyperglycemia, and acute kidney injury. Troponin I level was also elevated at 0.345. The patient's proBNP was elevated at 1976. The patient was admitted to intensive care unit of [facility] for further evaluation and management of possible hyperosmolar coma with acute kidney injury, and possible sepsis. Cardiology consultation was made for assessment of hypotension and prolongation of QT interval on 12-lead electrocardiogram, as well as elevation of troponin I level. The patient is obtunded at this time and not capable of providing any history. The history was limited by the family members at the bedside in the emergency department, besides altered level of consciousness. A 2-D echocardiography was done upon arrival to the hospital and showed normal left ventricular systolic function with LVEF of about 55% to 60% with grade 1 LV diastolic dysfunction suggestive of impaired left ventricular relaxation and normal intracardiac filling pressures. Her pulmonary artery pressure was also calculated at 33 mmHg. Cardiology consultation was made at the request of Dr. Kerns. PAST MEDICAL HISTORY: 1. Diabetes mellitus. 2. Hypertension. PAST SURGICAL HISTORY: None. FAMILY HISTORY: No premature coronary artery disease in first-degree relatives. SOCIAL HISTORY: There is no history of tobacco, alcohol, or illicit drug use. ALLERGIES: No known drug allergies. MEDICATIONS: List of medications at home, basically no medication has been taken by the patient or reported by the patient's family members. REVIEW OF SYSTEMS: A 12-system review cannot be done as the patient is obtunded. PHYSICAL EXAMINATION: VITAL SIGNS: At the time of arrival to the hospital, blood pressure was 100/41 mmHg, pulse 71, respirations 14, O2 saturation 94% on room air, and temperature 96.3 degrees Fahrenheit. GENERAL: The patient is a very unfortunate 69-year-old female, obtunded. HEENT: Atraumatic and normocephalic. Anicteric. Pupils are equal, round, and reactive to light and accommodation. NECK: JVP less than 5 cm. No carotid bruits. Carotid upstrokes 2+ bilaterally. CARDIOVASCULAR: Normal S1, S2. Regular rate and rhythm. No murmurs, gallops, or rubs. LUNGS: Diminished breath sounds at both bases. ABDOMEN: Soft, nontender, and nondistended. No hepatosplenomegaly. Positive bowel sounds. EXTREMITIES: No evidence of edema, clubbing, or cyanosis. LABORATORY FINDINGS: Sodium is 147, potassium 3.7, chloride 105, bicarbonate 17, BUN 126, and creatinine 5.6. Glucose 723. Calcium is 9.0. Magnesium was 1.6. Total creatine kinase at 2201. Troponin I was 0.345. ProBNP 1976. Lipase elevated at 1113. INR was 1.3. Acetone level was negative. ASSESSMENT AND PLAN: The patient is a very unfortunate 68-year-old female, who is seen in Cardiology consultation. 1. Hypotension. The patient on arrival to the hospital had a low mean arterial pressure, which is responding well to intravenous hydration. The patient is not on any intravenous pressors. We will continue hydration with D5 water as recommended by the perl programmer in view of severe hypernatremia and low intravascular volume depletion. Urine output will be checked. A 2-D echocardiography of note had shown normal LV systolic function with no evidence of increased intracardiac filling pressure. 2. Prolongation of QT interval could be due to hypomagnesemia, which was corrected. We will continue monitoring the electrolytes as well. Serum potassium was also low and has been managed by perl programmer. Another 12-lead electrocardiogram will be done today. 3. Slight elevation of troponin I level in this patient most likely non-ST elevation myocardial infarction type 2 or demand ischemia in presence of sepsis/renal failure/pneumonia. No ischemic workup is warranted at this time until electrolyte and water abnormalities are corrected. 4. Hyperosmolar coma, continues to be obtunded. Aggressive water and electrolyte correction is in progress. 5. Most likely right lower and middle lobe pneumonia. Continue IV antibiotics. ID consultation/recommendation. Total amount of time spent in evaluation of this patient in [facility] intensive care unit, discussing the plan of care with the primary care physician and nursing staff, was over 50 minutes. I would like to thank, Dr. Kerns, for the courtesy of this consultation. Abdelrahman Cardoso M.D. DR: CHET JOB#: [id number] CC:
--- NOTE | 2018-07-22 01:53 | NUR ---
NURSE NOTES: Bed bath given tolerated well. Patient with x1 large form stool. Blood glucose 123mg/dl on NovoLog insulin drip 3ml/hr Algorithm 3. Will continue plan of care.
--- NOTE | 2018-07-22 04:00 | NUR ---
NURSE NOTES: Blood glucose 89mg/dl on NovoLog insulin drip 1ml/hr Algorithm 3. No moaning no facial grimaces. No s/s of acute distress. Will continue plan of care. Addendum: 07/22/18 at 0639 by JEVON ANDERSON RN RN algorithm 4
--- NOTE | 2018-07-22 06:00 | NUR ---
NURSE NOTES: Blood glucose 85mg/dl on NovoLog insulin drip 1ml/hr Algorithm 4. No moaning no facial grimaces. No s/s of acute distress. Repositioned. On P200 for wound management.Will continue plan of care.
[2018-07-22 06:14] LABS: ALANINE AMINOTRANSFERASE 54 U/L (12-78); ALBUMIN 1.7 G/DL (3.4-5.0); ALBUMIN/GLOBULIN RATIO 0.5 (1.0-2.7); ALKALINE PHOSPHATASE 74 U/L (46-116); ANION GAP 14 mmol/L (5-15); ASPARTATE AMINO TRANSFERASE 135 U/L (15-37); BILIRUBIN,TOTAL 0.7 MG/DL (0.2-1.0); BLOOD UREA NITROGEN 85 mg/dL (7-18); CALCIUM 7.3 MG/DL (8.5-10.1); CARBON DIOXIDE 19 MMOL/L (21-32); CHLORIDE 118 MMOL/L (98-107); CREATININE 3.4 MG/DL (0.55-1.30); PHOSPHORUS 2.8 MG/DL (2.5-4.9); POTASSIUM 2.9 MMOL/L (3.5-5.1); SODIUM 151 MMOL/L (136-145)
[2018-07-22 06:24] LABS: HEMATOCRIT 34.2 % (37.0-47.0); MEAN CORPUSCULAR VOLUME 89 FL (80-99); PLATELET COUNT 101 K/UL (150-450); RED BLOOD COUNT 3.83 M/UL (4.20-5.40); RED CELL DISTRIBUTION WIDTH 14.9 % (11.6-14.8)
--- NOTE | 2018-07-22 07:12 | NUR ---
NURSE NOTES: Received pt from SHIRIN Retana. patient opens eyes and makes good eye contact, occasional moaning and garbled speech. Unable to follow commands. Pt is on 3LNC, SPo2 100%, RR 18. NPO status maintained. RFA 20G, LAC 20G, RW 22G running insulin gtt, following protocol and D5W@150ml/hr. Notified Dr. Richard regarding potassium 2.9, received orders to change IVF to D5W w/KCL 40mEq@150ml/hr. Hampton catheter draining yellow cloudy urine to gravity. VSS. NSR on radiation monitor with HR 67. Dressing on buttocks clean and intact. Bed locked, alarmed and in lowest position. Will continue plan of care.
--- NOTE | 2018-07-22 07:12 | General Progress Note ---
Assessment/Plan Problem List: (1) Rhabdomyolysis ICD Codes: M62.82 - Rhabdomyolysis SNOMED: 569526766 Qualifiers: Qualified Codes: M62.82 - Rhabdomyolysis (2) Pancreatitis ICD Codes: K85.90 - Acute pancreatitis without necrosis or infection, unspecified SNOMED: 54892663 Qualifiers: Qualified Codes: K85.90 - Acute pancreatitis without necrosis or infection, unspecified (3) Hyperglycemia ICD Codes: R73.9 - Hyperglycemia, unspecified SNOMED: 13052968 (4) Severe sepsis ICD Codes: A41.9 - Sepsis, unspecified organism; R65.20 - Severe sepsis without septic shock SNOMED: 94279573 (5) Elevated troponin ICD Codes: R74.8 - Abnormal levels of other serum enzymes SNOMED: 393396722, 614401569, 431689457 (6) Hyperosmolar coma ICD Codes: E11.01 - Type 2 diabetes mellitus with hyperosmolarity with coma SNOMED: 192493367 (7) Diabetes mellitus type II, uncontrolled ICD Codes: E11.65 - Type 2 diabetes mellitus with hyperglycemia SNOMED: 61595386, 082996572 (8) Renal failure (ARF), acute on chronic ICD Codes: N17.9 - Acute kidney failure, unspecified; N18.9 - Chronic kidney disease, unspecified SNOMED: 976933388 Assessment/Plan continue insulin gtt for tight glycemic control Subjective ROS Limited/Unobtainable: Yes Allergies: Coded Allergies: SULFA (SULFONAMIDE ANTIBIOTICS) (Verified Allergy, Unknown, 07/20/18) Subjective events noted Item Value Date Time Bedside Blood Glucose 85 mg/dl 07/22/18 0600 Bedside Blood Glucose 156 mg/dl H 07/22/18 0225 Bedside Blood Glucose 108 mg/dl 07/21/18 2200 Bedside Blood Glucose 156 mg/dl H 07/21/18 1836 Bedside Blood Glucose 131 mg/dl H 07/21/18 1405 Bedside Blood Glucose 244 mg/dl H 07/21/18 1027 Bedside Blood Glucose 178 mg/dl H 07/21/18 0600 Objective Last 24 Hour Vital Signs Date Time Temp Pulse Resp B/P (MAP) Pulse Ox O2 Delivery O2 Flow Rate FiO2 07/22/18 06:00 76 16 98/56 (70) 100 07/22/18 05:08 60 16 92/46 (61) 100 07/22/18 05:03 58 15 86/37 (53) 100 07/22/18 05:00 62 14 88/44 (59) 100 07/22/18 04:00 98.4 78 20 114/56 (75) 100 07/22/18 04:00 Nasal Cannula 3.0 07/22/18 04:00 71 07/22/18 03:00 85 20 125/58 (80) 100 07/22/18 02:00 67 18 104/46 (65) 100 07/22/18 01:00 67 18 104/46 (65) 100 07/22/18 00:00 66 07/22/18 00:00 Nasal Cannula 3.0 07/22/18 00:00 98.0 68 17 123/42 (69) 100 07/21/18 23:00 80 19 132/47 (75) 100 07/21/18 22:00 62 17 115/49 (71) 79 07/21/18 21:00 93 23 141/67 (91) 99 07/21/18 20:00 Nasal Cannula 3.0 07/21/18 20:00 98.4 70 17 122/44 (70) 97 07/21/18 19:00 72 16 125/52 (76) 98 07/21/18 18:00 98.9 57 16 111/42 (65) 97 07/21/18 17:00 55 19 120/40 (66) 98 07/21/18 16:42 62 07/21/18 16:00 55 15 132/44 (73) 99 07/21/18 16:00 66 07/21/18 16:00 Nasal Cannula 3.0 07/21/18 15:00 62 15 91/45 (60) 97 07/21/18 14:00 56 13 114/41 (65) 100 07/21/18 13:00 55 14 123/46 (71) 99 07/21/18 12:00 66 07/21/18 12:00 Nasal Cannula 3.0 07/21/18 12:00 99.3 54 14 117/43 (67) 97 07/21/18 11:00 54 14 120/41 (67) 98 07/21/18 10:00 68 16 138/47 (77) 99 07/21/18 09:00 56 15 103/43 (63) 99 07/21/18 08:00 69 07/21/18 08:00 79 16 160/60 (93) 97 07/21/18 08:00 Nasal Cannula 3.0 Intake and Output 07/21/18 07/22/18 19:00 07:00 Intake Total 2027.7 ml 2047.5 ml Output Total 1035 ml 1155 ml Balance 992.7 ml 892.5 ml Intake IV Total 2027.7 ml 2047.5 ml Output Urine Total 1035 ml 1155 ml # Bowel Movements 1 2 Laboratory Tests 07/21/18 09:10: Lactic Acid Level 5.60H, Uric Acid 14.2H, Total Creatine Kinase 3785H 07/21/18 14:23: Lactic Acid Level 3.70H 07/21/18 17:20: Lactic Acid Level 4.20H, Sodium Level 134#L, Potassium Level 2.5*L, Chloride Level 115H, Carbon Dioxide Level 17L, Anion Gap 2L, Blood Urea Nitrogen 98H, Creatinine 4.1H, Estimat Glomerular Filtration Rate 13.1, Glucose Level 161H, Hemoglobin A1c 10.5H, Calcium Level 7.7L, Magnesium Level 2.3, Ammonia 72H, Lactate Dehydrogenase 475H, Vitamin B12 Level > 2000H, Vitamin D 25-Hydroxy [ Pending], 25-Hydroxy Vitamin D2 [Pending], 25-Hydroxy Vitamin D3 [Pending], Folate 4.4L, Thyroid Stimulating Hormone (TSH) 1.149, Rapid Plasma Reagin [ Pending] 07/21/18 19:50: Sodium Level 153#H, Potassium Level 3.0L, Chloride Level 120H, Carbon Dioxide Level 18L, Anion Gap 15, Blood Urea Nitrogen 97H, Creatinine 3.8H, Estimat Glomerular Filtration Rate 14.2, Glucose Level 141H, Calcium Level 7.6L 07/21/18 21:30: Urine Color Pale yellow, Urine Appearance Cloudy, Urine pH 5, Urine Specific [place] 1.010, Urine Protein 2+H, Urine Glucose (UA) 2+H, Urine Ketones Negative , Urine Blood 5+H, Urine Nitrite Negative, Urine Bilirubin Negative, Urine Urobilinogen Normal, Urine Leukocyte Esterase 3+H, Urine RBC 5-10H, Urine WBC TntcH, Urine Squamous Epithelial Cells Occasional, Urine Amorphous Sediment ModerateH, Urine Bacteria Few, Urine Eosinophils None seen, Urine Random Creatinine [Pending], Urine Random Microalbumin [Pending], Urine Random Sodium 37, Urine Creatinine 48.7, Urine Microalbumin/Creatinine Ratio [Pending], Urine Potassium Timed 46 07/22/18 01:56: Stool Occult Blood [Pending] 07/22/18 05:20: White Blood Count 11.0H, Red Blood Count 3.83L, Hemoglobin 11.0L, Hematocrit 34.2L, Mean Corpuscular Volume 89, Mean Corpuscular Hemoglobin 28.7, Mean Corpuscular Hemoglobin Concent 32.1, Red Cell Distribution Width 14.9H, Platelet Count 101L, Mean Platelet Volume 11.3H, Neutrophils (%) (Auto) , Lymphocytes (%) (Auto) , Monocytes (%) (Auto) , Eosinophils (%) (Auto) , Basophils (%) (Auto) , Neutrophils % (Manual) [Pending], Lymphocytes % (Manual) [Pending], Platelet Estimate [Pending], Platelet Morphology [Pending], Erythrocyte Sedimentation Rate [Pending], Sodium Level 151H, Potassium Level 2.9L, Chloride Level 118H, Carbon Dioxide Level 19L, Anion Gap 14, Blood Urea Nitrogen 85H, Creatinine 3.4H, Estimat Glomerular Filtration Rate 16.2, Glucose Level 93, Calcium Level 7.3L, Phosphorus Level 2.8, Magnesium Level 1.9, Total Bilirubin 0.7, Aspartate Amino Transf (AST/SGOT) 135H, Alanine Aminotransferase (ALT/SGPT) 54, Alkaline Phosphatase 74, C-Reactive Protein, Quantitative [ Pending], Total Protein 5.0L, Albumin 1.7L, Globulin 3.3, Albumin/Globulin Ratio 0.5L Height (Feet): 5 Height (Inches): 3.00 Weight (Pounds): 160 General Appearance: moderate distress Neck: normal alignment Cardiovascular: normal rate Respiratory/Chest: normal breath sounds Abdomen: normal bowel sounds Objective Current Medications Medications (Trade) Dose Ordered Sig/Sylvester Route PRN Reason Start Time Stop Time Status Last Admin Dose Admin Acetaminophen (Tylenol) 650 mg Q4H PRN ORAL Fever (Temp>100.5F) 07/20/18 18:15 08/19/18 18:14 Albuterol/ Ipratropium (Albuterol/ Ipratropium) 3 ml Q4H PRN HHN Shortness of Breath 07/20/18 18:15 07/25/18 18:14 Dextrose 1,000 ml @ 150 mls/hr Q6H40M IV 07/21/18 16:15 08/20/18 16:14 07/22/18 05:29 Dextrose (Dextrose 50%) 25 ml Q30M PRN IV HYPOGLYCEMIA 07/21/18 01:00 08/20/18 00:59 Dextrose (Dextrose 50%) 50 ml Q30M PRN IV HYPOGLYCEMIA 07/21/18 01:00 08/20/18 00:59 Heparin Sodium (Porcine) (Heparin 5000 units/ml) 5,000 units EVERY 12 HOURS SUBQ 07/20/18 21:00 08/19/18 20:59 07/20/18 21:52 Insulin Human Regular (NovoLIN R) 5 units PRN PRN IV BS 200-299 07/21/18 01:00 08/20/18 00:59 07/21/18 15:46 Insulin Human Regular (NovoLIN R) 10 units PRN PRN IV BS=>300 07/21/18 01:00 08/20/18 00:59 Insulin Human Regular 100 units/ Sodium Chloride 101 ml @ 0 mls/hr Q24H IV 07/22/18 02:15 08/21/18 02:14 07/22/18 02:25 Lorazepam (Ativan 2mg/ml 1ml) 2 mg Q2H PRN IV agitation 07/20/18 18:15 07/27/18 18:14 Miscellaneous Medication (Insulin Rate Change) 1 ea PRN PRN MISC hyperglycemia 07/21/18 20:45 08/20/18 20:44 Morphine Sulfate (Morphine Sulfate) 4 mg Q4H PRN IVP Severe Pain (Pain Scale 7-10) 07/20/18 18:15 07/27/18 18:14 Nitroglycerin (Ntg) 0.4 mg Q5M PRN SL Prn Chest Pain 07/20/18 18:15 08/19/18 18:14 Ondansetron HCl (Zofran) 4 mg Q6H PRN IVP Nausea & Vomiting 07/20/18 18:15 08/19/18 18:14 Piperacillin Sod/ Tazobactam Sod 3.375 gm/Sodium Chloride 110 ml @ 27.5 mls/hr EVERY 12 HOURS IVPB 07/20/18 22:00 07/27/18 21:59 07/21/18 21:02 Polyethylene Glycol (Miralax) 17 gm DAILYPRN PRN ORAL Constipation 07/20/18 18:15 08/19/18 18:14 Luke Moran MD Jul 22, 2018 07:12
--- NOTE | 2018-07-22 07:30 | NUR ---
HAND-OFF: Report given to Adriana Lamb RN.
[2018-07-22] MEDS ORDERED: D5W w/KCl 20mEq 1,000 ML IV SCH (08:30)
[2018-07-22] MEDS: Zosyn 3.375gm q12h **Extended infusion IVPB SCH ×4 (09:07→20:49)
[2018-07-22] MEDS: Heparin 5000 units/ml inj SUBQ SCH ×2 (09:11→20:50)
--- NOTE | 2018-07-22 09:41 | NUR ---
NURSE NOTES: technician inventory specialist pio at bedside. No s/sx of acute distress noted.
--- NOTE | 2018-07-22 10:04 | NUR ---
NURSE NOTES: EEG complete. Abnormal result notified to Dr. Kerns and left voicemail to Dr. wade's covering doctor Dr. Douglas. Awaiting for call back.
--- NOTE | 2018-07-22 10:40 | NUR ---
NURSE NOTES: Ativan 2mg IVP given for focal to generalized seizure. Recurrent seizures lasting more than 2 mins each. Fixed gaze to the right, hand tremors and facial twitching noted during seizures.
--- NOTE | 2018-07-22 10:40 | NUR ---
RD ASSESSMENT & RECOMMENDATIONS SEE CARE ACTIVITY FOR COMPLETE ASSESSMENT DAILY ESTIMATED NEEDS: Needs based on DM, sepsis 57kg adj 25-35 kcals/kg 6396-4597 total kcals 1-2 g protein/kg 57-114 g total protein 25-30 mL/kg 2102-6634 total fluid mLs NUTRITION DIAGNOSIS: Altered nutrition related lab values r/t clinical status as evidenced by elev BG on adm (723, trending down), elev Creat on adm (5.6-> 3.4), elev Na (151),low K (2.9), elev Creat kinase, elev Lipase, elev A1C (10.5). CURRENT DIET: NPO PO DIET RECOMMENDATIONS: * DIRECTOR OF CLOUD SERVICES EVAL PRIOR TO ORAL DIET* ENTERAL NUTRITION RECOMMENDATIONS: IF NONORAL FEEDS ARE PART OF POC-->> Glucerna 1.2 @50ml/hr x24 hrs to provide 1200ml, 1440 kcal, 72g prot, 966ml free H2O - If medically appropriate, start Glucerna 1.2 @20ml/hr x6 hrs - Advance as tolerated 10ml/hr q4-6 hrs to goal - Flush per MD. HOB over 30 degrees ADDITIONAL RECOMMENDATIONS: 1) DIRECTOR OF CLOUD SERVICES eval 2) RE-calibrate bed scale w/ added P200 mattress + pump 3) WOUND CARE: add BARB BID w/ oral/ non oral feeds F/up w/ WC eval 4) B-complex daily for max glucose metabolism 5) Trend lipase, need for lower fat formula 6) Check lytes daily, replete as needed
--- NOTE | 2018-07-22 11:05 | NUR ---
CASE MANAGEMENT: REVIEW SI: HYPEROSMOLAR COMA . RENAL FAILURE ACUTE ON CHRONIC . SEIZURE . DM TYPE II, UNCONTROLLED T 98.4 HR 78 RR 20 BP 88/44 SAT 100% NC/3L GLUCOSE 156 NA 151 BUN 85 CR 3.4 IS: KCl 40mEq IVF @150ML/HR INSULIN GTT ZOSYN IV Q12HR HEPARIN SQ Q12HR ATIVAN 2MG IV ICU STATUS PATIENT IS FROM HOME
--- NOTE | 2018-07-22 11:12 | NUR ---
INSURANCE ALL CLINICALS AND REVIEWS FAXED TO [facility] PROVIDED AUTHORIZATION [phone] PH [phone] FAX
--- NOTE | 2018-07-22 12:48 | Pulmonolgy Critical Care Note ---
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, ID Discussed with: nurses, consultants, continuous pillowcase cutterprogram development manager - Objective Last 24 Hour Vital Signs Date Time Temp Pulse Resp B/P (MAP) Pulse Ox O2 Delivery O2 Flow Rate FiO2 07/22/18 12:00 Nasal Cannula 3.0 07/22/18 11:00 55 16 90/42 (58) 100 07/22/18 10:00 58 16 122/48 (72) 100 07/22/18 08:00 76 07/22/18 08:00 Nasal Cannula 3.0 07/22/18 07:00 78 19 109/48 (68) 100 07/22/18 06:00 76 16 98/56 (70) 100 07/22/18 05:08 60 16 92/46 (61) 100 07/22/18 05:03 58 15 86/37 (53) 100 07/22/18 05:00 62 14 88/44 (59) 100 07/22/18 04:00 98.4 78 20 114/56 (75) 100 07/22/18 04:00 Nasal Cannula 3.0 07/22/18 04:00 71 07/22/18 03:00 85 20 125/58 (80) 100 07/22/18 02:00 67 18 104/46 (65) 100 07/22/18 01:00 67 18 104/46 (65) 100 07/22/18 00:00 66 07/22/18 00:00 Nasal Cannula 3.0 07/22/18 00:00 98.0 68 17 123/42 (69) 100 07/21/18 23:00 80 19 132/47 (75) 100 07/21/18 22:00 62 17 115/49 (71) 79 07/21/18 21:00 93 23 141/67 (91) 99 07/21/18 20:00 Nasal Cannula 3.0 07/21/18 20:00 98.4 70 17 122/44 (70) 97 07/21/18 19:00 72 16 125/52 (76) 98 07/21/18 18:00 98.9 57 16 111/42 (65) 97 07/21/18 17:00 55 19 120/40 (66) 98 07/21/18 16:42 62 07/21/18 16:00 55 15 132/44 (73) 99 07/21/18 16:00 66 07/21/18 16:00 Nasal Cannula 3.0 07/21/18 15:00 62 15 91/45 (60) 97 07/21/18 14:00 56 13 114/41 (65) 100 07/21/18 13:00 55 14 123/46 (71) 99 Status: awake, sedated HEENT: atraumatic, normocephalic Lungs: rales, rhonchi Heart: HR/BP stable Abdomen: soft, non-tender, active bowel sounds, feeding tube Extremities: edema Micro: Microbiology Date/Time Source Procedure Growth Status 07/20/18 14:00 Blood Blood Culture - Preliminary NO GROWTH AFTER 24 HOURS Resulted 07/20/18 13:45 Blood Blood Culture - Preliminary NO GROWTH AFTER 24 HOURS Resulted 07/20/18 16:45 Nasal Nares MRSA Culture - Final NO METHICILLIN RESISTANT STAPH AUREUS... Complete 07/21/18 21:30 Urine,Clean Catch Urine Culture - Preliminary NO GROWTH Resulted 07/20/18 15:00 Urine,Clean Catch Urine Culture - Preliminary Gram Negative Shahram Resulted 07/20/18 16:45 Rectum VRE Culture - Final NO VANCOMYCIN RESISTANT ENTEROCOCCUS ... Resulted 07/20/18 16:45 Rectum Pending Resulted Accucheck: 115 Critical Care - Subjective ROS Limited/Unobtainable: Yes Condition: critical EKG Rhythm: Sinus Rhythm FI02: 28 I&O: Intake and Output 07/21/18 07/22/18 19:00 07:00 Intake Total 2027.7 ml 2047.5 ml Output Total 1035 ml 1240 ml Balance 992.7 ml 807.5 ml Intake IV Total 2027.7 ml 2047.5 ml Output Urine Total 1035 ml 1240 ml # Bowel Movements 1 2 CXR: no change Labs: Laboratory Tests Test 07/21/18 14:23 07/21/18 17:20 07/21/18 19:50 07/21/18 21:30 Lactic Acid Level 3.70 mmol/L (0.4-2.0) H 4.20 mmol/L (0.66-2.22) H Sodium Level 134 MMOL/L (136-145) #L 153 MMOL/L (136-145) #H Potassium Level 2.5 MMOL/L (3.5-5.1) *L 3.0 MMOL/L (3.5-5.1) L Chloride Level 115 MMOL/L (98-107) H 120 MMOL/L (98-107) H Carbon Dioxide Level 17 MMOL/L (21-32) L 18 MMOL/L (21-32) L Anion Gap 2 mmol/L (5-15) L 15 mmol/L (5-15) Blood Urea Nitrogen 98 mg/dL (7-18) H 97 mg/dL (7-18) H Creatinine 4.1 MG/DL (0.55-1.30) H 3.8 MG/DL (0.55-1.30) H Estimat Glomerular Filtration Rate 13.1 mL/min (>60) 14.2 mL/min (>60) Glucose Level 161 MG/DL (74-106) H 141 MG/DL (74-106) H Hemoglobin A1c 10.5 % (4.3-6.0) H Calcium Level 7.7 MG/DL (8.5-10.1) L 7.6 MG/DL (8.5-10.1) L Magnesium Level 2.3 MG/DL (1.8-2.4) Ammonia 72 umol/L (11-32) H Lactate Dehydrogenase 475 U/L (81-234) H Vitamin B12 Level > 2000 PG/ML (193-986) H Vitamin D 25-Hydroxy Pending 25-Hydroxy Vitamin D2 Pending 25-Hydroxy Vitamin D3 Pending Folate 4.4 NG/ML (8.6-58.9) L Thyroid Stimulating Hormone (TSH) 1.149 uiU/mL (0.358-3.740) Rapid Plasma Reagin Pending Urine Color Pale yellow Urine Appearance Cloudy Urine pH 5 (4.5-8.0) Urine Specific [place] 1.010 (1.005-1.035) Urine Protein 2+ (NEGATIVE) H Urine Glucose (UA) 2+ (NEGATIVE) H Urine Ketones Negative (NEGATIVE) Urine Blood 5+ (NEGATIVE) H Urine Nitrite Negative (NEGATIVE) Urine Bilirubin Negative (NEGATIVE) Urine Urobilinogen Normal MG/DL (0.0-1.0) Urine Leukocyte Esterase 3+ (NEGATIVE) H Urine RBC 5-10 /HPF (0 - 2) H Urine WBC Tntc /HPF (0 - 2) H Urine Squamous Epithelial Cells Occasional /LPF Urine Amorphous Sediment Moderate /LPF (NONE) H Urine Bacteria Few /HPF (NONE) Urine Eosinophils None seen (NONE SEEN) Urine Random Creatinine Pending Urine Random Microalbumin Pending Urine Random Sodium 37 mmol/L (20-110) Urine Creatinine 48.7 MG/DL (30.0-125.0) Urine Microalbumin/Creatinine Ratio Pending Urine Potassium Timed 46 mmol/L (12-62) Test 07/22/18 01:56 07/22/18 05:20 Stool Occult Blood Pending White Blood Count 11.0 K/UL (4.8-10.8) H Red Blood Count 3.83 M/UL (4.20-5.40) L Hemoglobin 11.0 G/DL (12.0-16.0) L Hematocrit 34.2 % (37.0-47.0) L Mean Corpuscular Volume 89 FL (80-99) Mean Corpuscular Hemoglobin 28.7 PG (27.0-31.0) Mean Corpuscular Hemoglobin Concent 32.1 G/DL (32.0-36.0) Red Cell Distribution Width 14.9 % (11.6-14.8) H Platelet Count 101 K/UL (150-450) L Mean Platelet Volume 11.3 FL (6.5-10.1) H Neutrophils (%) (Auto) % (45.0-75.0) Lymphocytes (%) (Auto) % (20.0-45.0) Monocytes (%) (Auto) % (1.0-10.0) Eosinophils (%) (Auto) % (0.0-3.0) Basophils (%) (Auto) % (0.0-2.0) Differential Total Cells Counted 100 Neutrophils % (Manual) 72 % (45-75) Lymphocytes % (Manual) 8 % (20-45) L Monocytes % (Manual) 5 % (1-10) Eosinophils % (Manual) 1 % (0-3) Basophils % (Manual) 0 % (0-2) Band Neutrophils 14 % (0-8) H Platelet Estimate Decreased L Platelet Morphology Normal Anisocytosis 1+ Erythrocyte Sedimentation Rate 79 MM/HR (0-30) H Sodium Level 151 MMOL/L (136-145) H Potassium Level 2.9 MMOL/L (3.5-5.1) L Chloride Level 118 MMOL/L (98-107) H Carbon Dioxide Level 19 MMOL/L (21-32) L Anion Gap 14 mmol/L (5-15) Blood Urea Nitrogen 85 mg/dL (7-18) H Creatinine 3.4 MG/DL (0.55-1.30) H Estimat Glomerular Filtration Rate 16.2 mL/min (>60) Glucose Level 93 MG/DL (74-106) Calcium Level 7.3 MG/DL (8.5-10.1) L Phosphorus Level 2.8 MG/DL (2.5-4.9) Magnesium Level 1.9 MG/DL (1.8-2.4) Total Bilirubin 0.7 MG/DL (0.2-1.0) Aspartate Amino Transf (AST/SGOT) 135 U/L (15-37) H Alanine Aminotransferase (ALT/SGPT) 54 U/L (12-78) Alkaline Phosphatase 74 U/L (46-116) C-Reactive Protein, Quantitative > 70.0 mg/dL (0.00-0.90) H Total Protein 5.0 G/DL (6.4-8.2) L Albumin 1.7 G/DL (3.4-5.0) L Globulin 3.3 g/dL Albumin/Globulin Ratio 0.5 (1.0-2.7) L Mara Richard MD Jul 22, 2018 12:48
--- NOTE | 2018-07-22 13:18 | Nephrology Progress Note ---
Assessment/Plan Assessment/Plan A/P 1) ANGELA- prerenal in nature - continues to improve with hydration - avoid nephrotoxins 2) Hypernatremia- due to intra vasc vol depletion- - decrease D5W - Na at 151 3) Hypokalemia- continue replacement 4) DKA- per Endo Subjective Date patient seen: Jul 22, 2018 Time patient seen: 13:15 ROS Limited/Unobtainable: Yes Allergies: Coded Allergies: SULFA (SULFONAMIDE ANTIBIOTICS) (Verified Allergy, Unknown, 07/20/18) Subjective Patient had seizure today. Somnolent post benzo Objective Last 24 Hour Vital Signs Date Time Temp Pulse Resp B/P (MAP) Pulse Ox O2 Delivery O2 Flow Rate FiO2 07/22/18 12:00 Nasal Cannula 3.0 07/22/18 11:00 55 16 90/42 (58) 100 07/22/18 10:00 58 16 122/48 (72) 100 07/22/18 08:00 76 07/22/18 08:00 Nasal Cannula 3.0 07/22/18 07:00 78 19 109/48 (68) 100 07/22/18 06:00 76 16 98/56 (70) 100 07/22/18 05:08 60 16 92/46 (61) 100 07/22/18 05:03 58 15 86/37 (53) 100 07/22/18 05:00 62 14 88/44 (59) 100 07/22/18 04:00 98.4 78 20 114/56 (75) 100 07/22/18 04:00 Nasal Cannula 3.0 07/22/18 04:00 71 07/22/18 03:00 85 20 125/58 (80) 100 07/22/18 02:00 67 18 104/46 (65) 100 07/22/18 01:00 67 18 104/46 (65) 100 07/22/18 00:00 66 07/22/18 00:00 Nasal Cannula 3.0 07/22/18 00:00 98.0 68 17 123/42 (69) 100 07/21/18 23:00 80 19 132/47 (75) 100 07/21/18 22:00 62 17 115/49 (71) 79 07/21/18 21:00 93 23 141/67 (91) 99 07/21/18 20:00 Nasal Cannula 3.0 07/21/18 20:00 98.4 70 17 122/44 (70) 97 07/21/18 19:00 72 16 125/52 (76) 98 07/21/18 18:00 98.9 57 16 111/42 (65) 97 07/21/18 17:00 55 19 120/40 (66) 98 07/21/18 16:42 62 07/21/18 16:00 55 15 132/44 (73) 99 07/21/18 16:00 66 07/21/18 16:00 Nasal Cannula 3.0 07/21/18 15:00 62 15 91/45 (60) 97 07/21/18 14:00 56 13 114/41 (65) 100 Intake and Output 07/21/18 07/22/18 19:00 07:00 Intake Total 2027.7 ml 2047.5 ml Output Total 1035 ml 1240 ml Balance 992.7 ml 807.5 ml Intake IV Total 2027.7 ml 2047.5 ml Output Urine Total 1035 ml 1240 ml # Bowel Movements 1 2 Laboratory Tests 07/21/18 14:23: Lactic Acid Level 3.70H 07/21/18 17:20: Lactic Acid Level 4.20H, Sodium Level 134#L, Potassium Level 2.5*L, Chloride Level 115H, Carbon Dioxide Level 17L, Anion Gap 2L, Blood Urea Nitrogen 98H, Creatinine 4.1H, Estimat Glomerular Filtration Rate 13.1, Glucose Level 161H, Hemoglobin A1c 10.5H, Calcium Level 7.7L, Magnesium Level 2.3, Ammonia 72H, Lactate Dehydrogenase 475H, Vitamin B12 Level > 2000H, Vitamin D 25-Hydroxy [ Pending], 25-Hydroxy Vitamin D2 [Pending], 25-Hydroxy Vitamin D3 [Pending], Folate 4.4L, Thyroid Stimulating Hormone (TSH) 1.149, Rapid Plasma Reagin [ Pending] 07/21/18 19:50: Sodium Level 153#H, Potassium Level 3.0L, Chloride Level 120H, Carbon Dioxide Level 18L, Anion Gap 15, Blood Urea Nitrogen 97H, Creatinine 3.8H, Estimat Glomerular Filtration Rate 14.2, Glucose Level 141H, Calcium Level 7.6L 07/21/18 21:30: Urine Color Pale yellow, Urine Appearance Cloudy, Urine pH 5, Urine Specific [place] 1.010, Urine Protein 2+H, Urine Glucose (UA) 2+H, Urine Ketones Negative , Urine Blood 5+H, Urine Nitrite Negative, Urine Bilirubin Negative, Urine Urobilinogen Normal, Urine Leukocyte Esterase 3+H, Urine RBC 5-10H, Urine WBC TntcH, Urine Squamous Epithelial Cells Occasional, Urine Amorphous Sediment ModerateH, Urine Bacteria Few, Urine Eosinophils None seen, Urine Random Creatinine [Pending], Urine Random Microalbumin [Pending], Urine Random Sodium 37, Urine Creatinine 48.7, Urine Microalbumin/Creatinine Ratio [Pending], Urine Potassium Timed 46 07/22/18 01:56: Stool Occult Blood [Pending] 07/22/18 05:20: White Blood Count 11.0H, Red Blood Count 3.83L, Hemoglobin 11.0L, Hematocrit 34.2L, Mean Corpuscular Volume 89, Mean Corpuscular Hemoglobin 28.7, Mean Corpuscular Hemoglobin Concent 32.1, Red Cell Distribution Width 14.9H, Platelet Count 101L, Mean Platelet Volume 11.3H, Neutrophils (%) (Auto) , Lymphocytes (%) (Auto) , Monocytes (%) (Auto) , Eosinophils (%) (Auto) , Basophils (%) (Auto) , Differential Total Cells Counted 100, Neutrophils % ( Manual) 72, Lymphocytes % (Manual) 8L, Monocytes % (Manual) 5, Eosinophils % ( Manual) 1, Basophils % (Manual) 0, Band Neutrophils 14H, Platelet Estimate DecreasedL, Platelet Morphology Normal, Anisocytosis 1+, Erythrocyte Sedimentation Rate 79H, Sodium Level 151H, Potassium Level 2.9L, Chloride Level 118H, Carbon Dioxide Level 19L, Anion Gap 14, Blood Urea Nitrogen 85H, Creatinine 3.4H, Estimat Glomerular Filtration Rate 16.2, Glucose Level 93, Calcium Level 7.3L, Phosphorus Level 2.8, Magnesium Level 1.9, Total Bilirubin 0.7, Aspartate Amino Transf (AST/SGOT) 135H, Alanine Aminotransferase (ALT/SGPT ) 54, Alkaline Phosphatase 74, C-Reactive Protein, Quantitative > 70.0H, Total Protein 5.0L, Albumin 1.7L, Globulin 3.3, Albumin/Globulin Ratio 0.5L Height (Feet): 5 Height (Inches): 3.00 Weight (Pounds): 160 General Appearance: lethargic EENT: normal ENT inspection Neck: normal alignment, supple Cardiovascular: normal rate, regular rhythm Respiratory/Chest: lungs clear, normal breath sounds Abdomen: non tender, soft Edema: no edema noted Arm (L), no edema noted Arm (R), no edema noted Leg (L), no edema noted Leg (R), no edema noted Pedal (L), no edema noted Pedal (R), no edema noted Generalized Marcos Luo MD Jul 22, 2018 13:18
--- NOTE | 2018-07-22 14:21 | NUR ---
NURSE NOTES: blood sugar 102, insulin gtt decreased to 2 units/hr. No s/sx of distress noted.
--- NOTE | 2018-07-22 14:30 | Neurology Progress Note ---
Interim History Interim History Interim History Ms. Lopez continues to be poorly responsive. Her eyes are open but she is unable to respond to any commands or interact in any way. She only responds to deep pain with moaning and groaning. She is still significantly encephalopathic. Review of Systems Neuro Review of Systems Unable to obtain. Objective Physical Exam Last Vital Signs Date Time Temp Pulse Resp B/P (MAP) Pulse Ox O2 Delivery O2 Flow Rate FiO2 07/22/18 12:00 Nasal Cannula 3.0 07/22/18 11:00 55 16 90/42 (58) 100 07/22/18 04:00 98.4 07/20/18 20:44 28 Laboratory Tests Test 07/21/18 14:23 07/21/18 17:20 07/21/18 19:50 07/21/18 21:30 Lactic Acid Level 3.70 mmol/L (0.4-2.0) H 4.20 mmol/L (0.66-2.22) H Sodium Level 134 MMOL/L (136-145) #L 153 MMOL/L (136-145) #H Potassium Level 2.5 MMOL/L (3.5-5.1) *L 3.0 MMOL/L (3.5-5.1) L Chloride Level 115 MMOL/L (98-107) H 120 MMOL/L (98-107) H Carbon Dioxide Level 17 MMOL/L (21-32) L 18 MMOL/L (21-32) L Anion Gap 2 mmol/L (5-15) L 15 mmol/L (5-15) Blood Urea Nitrogen 98 mg/dL (7-18) H 97 mg/dL (7-18) H Creatinine 4.1 MG/DL (0.55-1.30) H 3.8 MG/DL (0.55-1.30) H Estimat Glomerular Filtration Rate 13.1 mL/min (>60) 14.2 mL/min (>60) Glucose Level 161 MG/DL (74-106) H 141 MG/DL (74-106) H Hemoglobin A1c 10.5 % (4.3-6.0) H Calcium Level 7.7 MG/DL (8.5-10.1) L 7.6 MG/DL (8.5-10.1) L Magnesium Level 2.3 MG/DL (1.8-2.4) Ammonia 72 umol/L (11-32) H Lactate Dehydrogenase 475 U/L (81-234) H Vitamin B12 Level > 2000 PG/ML (193-986) H Vitamin D 25-Hydroxy Pending 25-Hydroxy Vitamin D2 Pending 25-Hydroxy Vitamin D3 Pending Folate 4.4 NG/ML (8.6-58.9) L Thyroid Stimulating Hormone (TSH) 1.149 uiU/mL (0.358-3.740) Rapid Plasma Reagin Pending Urine Color Pale yellow Urine Appearance Cloudy Urine pH 5 (4.5-8.0) Urine Specific [place] 1.010 (1.005-1.035) Urine Protein 2+ (NEGATIVE) H Urine Glucose (UA) 2+ (NEGATIVE) H Urine Ketones Negative (NEGATIVE) Urine Blood 5+ (NEGATIVE) H Urine Nitrite Negative (NEGATIVE) Urine Bilirubin Negative (NEGATIVE) Urine Urobilinogen Normal MG/DL (0.0-1.0) Urine Leukocyte Esterase 3+ (NEGATIVE) H Urine RBC 5-10 /HPF (0 - 2) H Urine WBC Tntc /HPF (0 - 2) H Urine Squamous Epithelial Cells Occasional /LPF Urine Amorphous Sediment Moderate /LPF (NONE) H Urine Bacteria Few /HPF (NONE) Urine Eosinophils None seen (NONE SEEN) Urine Random Creatinine Pending Urine Random Microalbumin Pending Urine Random Sodium 37 mmol/L (20-110) Urine Creatinine 48.7 MG/DL (30.0-125.0) Urine Microalbumin/Creatinine Ratio Pending Urine Potassium Timed 46 mmol/L (12-62) Test 07/22/18 01:56 07/22/18 05:20 Stool Occult Blood Pending White Blood Count 11.0 K/UL (4.8-10.8) H Red Blood Count 3.83 M/UL (4.20-5.40) L Hemoglobin 11.0 G/DL (12.0-16.0) L Hematocrit 34.2 % (37.0-47.0) L Mean Corpuscular Volume 89 FL (80-99) Mean Corpuscular Hemoglobin 28.7 PG (27.0-31.0) Mean Corpuscular Hemoglobin Concent 32.1 G/DL (32.0-36.0) Red Cell Distribution Width 14.9 % (11.6-14.8) H Platelet Count 101 K/UL (150-450) L Mean Platelet Volume 11.3 FL (6.5-10.1) H Neutrophils (%) (Auto) % (45.0-75.0) Lymphocytes (%) (Auto) % (20.0-45.0) Monocytes (%) (Auto) % (1.0-10.0) Eosinophils (%) (Auto) % (0.0-3.0) Basophils (%) (Auto) % (0.0-2.0) Differential Total Cells Counted 100 Neutrophils % (Manual) 72 % (45-75) Lymphocytes % (Manual) 8 % (20-45) L Monocytes % (Manual) 5 % (1-10) Eosinophils % (Manual) 1 % (0-3) Basophils % (Manual) 0 % (0-2) Band Neutrophils 14 % (0-8) H Platelet Estimate Decreased L Platelet Morphology Normal Anisocytosis 1+ Erythrocyte Sedimentation Rate 79 MM/HR (0-30) H Sodium Level 151 MMOL/L (136-145) H Potassium Level 2.9 MMOL/L (3.5-5.1) L Chloride Level 118 MMOL/L (98-107) H Carbon Dioxide Level 19 MMOL/L (21-32) L Anion Gap 14 mmol/L (5-15) Blood Urea Nitrogen 85 mg/dL (7-18) H Creatinine 3.4 MG/DL (0.55-1.30) H Estimat Glomerular Filtration Rate 16.2 mL/min (>60) Glucose Level 93 MG/DL (74-106) Calcium Level 7.3 MG/DL (8.5-10.1) L Phosphorus Level 2.8 MG/DL (2.5-4.9) Magnesium Level 1.9 MG/DL (1.8-2.4) Total Bilirubin 0.7 MG/DL (0.2-1.0) Aspartate Amino Transf (AST/SGOT) 135 U/L (15-37) H Alanine Aminotransferase (ALT/SGPT) 54 U/L (12-78) Alkaline Phosphatase 74 U/L (46-116) C-Reactive Protein, Quantitative > 70.0 mg/dL (0.00-0.90) H Total Protein 5.0 G/DL (6.4-8.2) L Albumin 1.7 G/DL (3.4-5.0) L Globulin 3.3 g/dL Albumin/Globulin Ratio 0.5 (1.0-2.7) L Neurologic Exam Objective PHYSICAL EXAMINATION: GENERAL: She is a well-developed, well-nourished, black lady, lying in an ICU bed, in no acute distress. HEAD: Normocephalic and atraumatic. EENT: Examination benign. NECK: No neck rigidity was observed. NEUROLOGIC EXAMINATION: MENTAL STATUS EXAMINATION: Her eyes were open but she was unresponsive. She would moan and groan but was unable to communicate in any manner. Further mental status testing was impossible. SPEECH: She only moaned and groaned and thus, formal speech testing was impossible. LANGUAGE: She was unable to comprehend or express herself. CRANIAL NERVE EXAMINATION: II: She did blink to threat on both sides. III, IV & : The external ocular movements were present on oculocephalic maneuvers. The pupils were 3 mm in diameter, equal, round, regular, and reactive sluggishly to light. V & VII: The corneal reflexes were present bilaterally, but were diminished. She also had definite right VII central facial paresis. VIII: She seemed to be able to hear loud sounds and had no nystagmus. IX & X: The gag reflex was present, but significantly diminished and delayed. XI: The sternocleidomastoids and trapezii did function. XII: The tongue was in the midline without any fasciculations or atrophy. MOTOR SYSTEM: The tone was normal in all four extremities. Examination of muscle mass revealed no focal wasting. Examination of power was impossible to perform because of her inability to cooperate. When deep painful stimuli were applied, she moved all four extremities minimally. SENSORY EXAMINATION: She responded appropriately to deep pain. Other sensory modalities could not be tested. REFLEXES: Trace+ and bilaterally symmetrical at the biceps, triceps, brachioradialis, and knees; zero at both ankles. The plantar responses were flexor bilaterally. COORDINATION, STANCE & GAIT: Could not be tested. Impression/Recommendations Diagnostic Impression 1. Ms. Clarke Lopez is a 68-year-old, black lady, of unknown handedness, who does have past history of hypertension and diabetes mellitus, who was brought to the hospital by the paramedics for three-week history of altered mental state , which had significantly worsened on the day of admission. On being evaluated in the emergency room, she was noted to be significantly hyperglycemic, had signs of acute kidney injury, was hypoxic and acidotic, and had a urinary tract infection. Since then, she has been treated for these problems, but continues to be significantly altered with regard to her mental state. 2. She continues to be poorly responsive. Her eyes are open but she is unable to respond to any commands or interact in any way. She only responds to deep pain with moaning and groaning. She is still significantly encephalopathic. 3. On neurological examination, at this time, her eyes are open but she is unable to communicate in any manner. She does moan and groan and is unable to follow even simple commands. She has a right VII central facial paresis, globally diminished deep tendon reflexes that are symmetrical, and minimal movements in all four extremities. 4. CT scan of the brain without contrast reveals atrophy and deep white matter changes, but no definite acute pathology. 5. Her laboratory data on admission revealed a blood glucose elevated to 723, sodium elevated at 147, chloride elevated at 105, BUN elevated at 126 with a creatinine elevated at 5.6, CK elevated at 2201, and albumin low at 2.9. The CBC revealed a WBC count elevated at 12,900 and hemoglobin borderline normal at 12.7 G. The arterial blood gas revealed a pH at 7.32, pCO2 at 25.8, and pO2 at 59.7 with low bicarbonate of 13.1. Her urinalysis revealed 3+ leukocyte esterase, 20-30 red blood cells, and too numerous to count white blood cells per high-power field. 6. Further laboratory tests have revealed a low folate. 7. The EEG done on 07/22/18 revealed a technically poor study due to EMG artifact. In addition, the study revealed a moderate toxic/metabolic encephalopathy. 8. The patient's history and neurological examination are most compatible with a significant toxic metabolic encephalopathy related to the hyperglycemia, acute kidney injury, hypoxia, and an acute infectious process, however, the right VII central facial paresis is a bothersome finding and could be indicative of focal brain pathology. Recommendations 1. Continue present management. 2. Continue to correct the patient's toxic metabolic imbalances. 3. Await MRI scan of the brain to evaluate her facial paresis and altered mental state. 4. Folic acid 1 mg daily. 5. As soon as the patient is more alert, she should be mobilized with the help of physical and occupational therapy. Srinivasa Bingham M.D., M.S.P.H. Srinivasa Bingham MD Jul 22, 2018 14:30
--- NOTE | 2018-07-22 14:49 | NUR ---
NURSE NOTES: Received orders to discontinue insulin gtt, start pt on insulin resistant sliding scale q4h, 10 units Levemir BID, first dose to be given now.
--- NOTE | 2018-07-22 15:50 | NUR ---
NURSE NOTES: Blood sugar 153, Levemir 10units given as per ordered.
[2018-07-22] MEDS: Levemir Flexpen SUBQ SCH ×2 (15:59→21:12)
--- NOTE | 2018-07-22 16:15 | Internal Med Progress Note ---
Subjective Date of Service: Jul 22, 2018 Physician Name Saez,Wei Attending Physician Jimmie Kerns MD Current Medications Medications (Trade) Dose Ordered Sig/Sylvester Route PRN Reason Start Time Stop Time Status Last Admin Dose Admin Acetaminophen (Tylenol) 650 mg Q4H PRN ORAL Fever (Temp>100.5F) 07/20/18 18:15 08/19/18 18:14 Albuterol/ Ipratropium (Albuterol/ Ipratropium) 3 ml Q4H PRN HHN Shortness of Breath 07/20/18 18:15 07/25/18 18:14 Dextrose (Dextrose 50%) 25 ml Q30M PRN IV Hypoglycemia 07/22/18 14:45 08/21/18 14:44 Dextrose (Dextrose 50%) 50 ml Q30M PRN IV Hypoglycemia 07/22/18 14:45 08/21/18 14:44 Heparin Sodium (Porcine) (Heparin 5000 units/ml) 5,000 units EVERY 12 HOURS SUBQ 07/20/18 21:00 08/19/18 20:59 07/22/18 09:11 Insulin Aspart (NovoLOG) Q4HR SUBQ 07/22/18 17:00 08/21/18 16:59 Insulin Detemir (Levemir) 10 units Q12HR SUBQ 07/22/18 15:45 08/21/18 15:44 07/22/18 15:59 Lorazepam (Ativan 2mg/ml 1ml) 2 mg Q2H PRN IV agitation 07/20/18 18:15 07/27/18 18:14 07/22/18 10:16 Ondansetron HCl (Zofran) 4 mg Q6H PRN IVP Nausea & Vomiting 07/20/18 18:15 08/19/18 18:14 Piperacillin Sod/ Tazobactam Sod 3.375 gm/Sodium Chloride 110 ml @ 27.5 mls/hr EVERY 12 HOURS IVPB 07/20/18 22:00 07/27/18 21:59 07/22/18 09:07 Potassium Chloride 40 meq/ Dextrose 1,020 ml @ 75 mls/hr [id number] IV 07/22/18 14:00 08/21/18 13:59 07/22/18 14:15 Potassium Chloride 100 ml @ 100 mls/hr Q1H IVPB 07/22/18 13:30 07/22/18 16:29 07/22/18 15:13 Allergies: Coded Allergies: SULFA (SULFONAMIDE ANTIBIOTICS) (Verified Allergy, Unknown, 07/20/18) ROS Limited/Unobtainable: Yes Subjective 68 YO F admitted with altered mental status. Now diabetic ketoacidosis and UTI. Cover for Int Michael-Dr Kerns. ICU Objective Last Vital Signs Date Time Temp Pulse Resp B/P (MAP) Pulse Ox O2 Delivery O2 Flow Rate FiO2 07/22/18 16:00 90 07/22/18 16:00 Nasal Cannula 3.0 07/22/18 11:00 16 90/42 (58) 100 07/22/18 04:00 98.4 07/20/18 20:44 28 Laboratory Tests Test 07/21/18 17:20 07/21/18 19:50 07/21/18 21:30 07/22/18 01:56 Sodium Level 134 MMOL/L (136-145) #L 153 MMOL/L (136-145) #H Potassium Level 2.5 MMOL/L (3.5-5.1) *L 3.0 MMOL/L (3.5-5.1) L Chloride Level 115 MMOL/L (98-107) H 120 MMOL/L (98-107) H Carbon Dioxide Level 17 MMOL/L (21-32) L 18 MMOL/L (21-32) L Anion Gap 2 mmol/L (5-15) L 15 mmol/L (5-15) Blood Urea Nitrogen 98 mg/dL (7-18) H 97 mg/dL (7-18) H Creatinine 4.1 MG/DL (0.55-1.30) H 3.8 MG/DL (0.55-1.30) H Estimat Glomerular Filtration Rate 13.1 mL/min (>60) 14.2 mL/min (>60) Glucose Level 161 MG/DL (74-106) H 141 MG/DL (74-106) H Hemoglobin A1c 10.5 % (4.3-6.0) H Lactic Acid Level 4.20 mmol/L (0.66-2.22) H Calcium Level 7.7 MG/DL (8.5-10.1) L 7.6 MG/DL (8.5-10.1) L Magnesium Level 2.3 MG/DL (1.8-2.4) Ammonia 72 umol/L (11-32) H Lactate Dehydrogenase 475 U/L (81-234) H Vitamin B12 Level > 2000 PG/ML (193-986) H Vitamin D 25-Hydroxy Pending 25-Hydroxy Vitamin D2 Pending 25-Hydroxy Vitamin D3 Pending Folate 4.4 NG/ML (8.6-58.9) L Thyroid Stimulating Hormone (TSH) 1.149 uiU/mL (0.358-3.740) Rapid Plasma Reagin Pending Urine Color Pale yellow Urine Appearance Cloudy Urine pH 5 (4.5-8.0) Urine Specific [place] 1.010 (1.005-1.035) Urine Protein 2+ (NEGATIVE) H Urine Glucose (UA) 2+ (NEGATIVE) H Urine Ketones Negative (NEGATIVE) Urine Blood 5+ (NEGATIVE) H Urine Nitrite Negative (NEGATIVE) Urine Bilirubin Negative (NEGATIVE) Urine Urobilinogen Normal MG/DL (0.0-1.0) Urine Leukocyte Esterase 3+ (NEGATIVE) H Urine RBC 5-10 /HPF (0 - 2) H Urine WBC Tntc /HPF (0 - 2) H Urine Squamous Epithelial Cells Occasional /LPF Urine Amorphous Sediment Moderate /LPF (NONE) H Urine Bacteria Few /HPF (NONE) Urine Eosinophils None seen (NONE SEEN) Urine Random Creatinine Pending Urine Random Microalbumin Pending Urine Random Sodium 37 mmol/L (20-110) Urine Creatinine 48.7 MG/DL (30.0-125.0) Urine Microalbumin/Creatinine Ratio Pending Urine Potassium Timed 46 mmol/L (12-62) Stool Occult Blood Pending Test 07/22/18 05:20 White Blood Count 11.0 K/UL (4.8-10.8) H Red Blood Count 3.83 M/UL (4.20-5.40) L Hemoglobin 11.0 G/DL (12.0-16.0) L Hematocrit 34.2 % (37.0-47.0) L Mean Corpuscular Volume 89 FL (80-99) Mean Corpuscular Hemoglobin 28.7 PG (27.0-31.0) Mean Corpuscular Hemoglobin Concent 32.1 G/DL (32.0-36.0) Red Cell Distribution Width 14.9 % (11.6-14.8) H Platelet Count 101 K/UL (150-450) L Mean Platelet Volume 11.3 FL (6.5-10.1) H Neutrophils (%) (Auto) % (45.0-75.0) Lymphocytes (%) (Auto) % (20.0-45.0) Monocytes (%) (Auto) % (1.0-10.0) Eosinophils (%) (Auto) % (0.0-3.0) Basophils (%) (Auto) % (0.0-2.0) Differential Total Cells Counted 100 Neutrophils % (Manual) 72 % (45-75) Lymphocytes % (Manual) 8 % (20-45) L Monocytes % (Manual) 5 % (1-10) Eosinophils % (Manual) 1 % (0-3) Basophils % (Manual) 0 % (0-2) Band Neutrophils 14 % (0-8) H Platelet Estimate Decreased L Platelet Morphology Normal Anisocytosis 1+ Erythrocyte Sedimentation Rate 79 MM/HR (0-30) H Sodium Level 151 MMOL/L (136-145) H Potassium Level 2.9 MMOL/L (3.5-5.1) L Chloride Level 118 MMOL/L (98-107) H Carbon Dioxide Level 19 MMOL/L (21-32) L Anion Gap 14 mmol/L (5-15) Blood Urea Nitrogen 85 mg/dL (7-18) H Creatinine 3.4 MG/DL (0.55-1.30) H Estimat Glomerular Filtration Rate 16.2 mL/min (>60) Glucose Level 93 MG/DL (74-106) Calcium Level 7.3 MG/DL (8.5-10.1) L Phosphorus Level 2.8 MG/DL (2.5-4.9) Magnesium Level 1.9 MG/DL (1.8-2.4) Total Bilirubin 0.7 MG/DL (0.2-1.0) Aspartate Amino Transf (AST/SGOT) 135 U/L (15-37) H Alanine Aminotransferase (ALT/SGPT) 54 U/L (12-78) Alkaline Phosphatase 74 U/L (46-116) C-Reactive Protein, Quantitative > 70.0 mg/dL (0.00-0.90) H Total Protein 5.0 G/DL (6.4-8.2) L Albumin 1.7 G/DL (3.4-5.0) L Globulin 3.3 g/dL Albumin/Globulin Ratio 0.5 (1.0-2.7) L Microbiology Date/Time Source Procedure Growth Status 07/20/18 14:00 Blood Blood Culture - Preliminary NO GROWTH AFTER 24 HOURS Resulted 07/20/18 13:45 Blood Blood Culture - Preliminary NO GROWTH AFTER 24 HOURS Resulted 07/20/18 16:45 Nasal Nares MRSA Culture - Final NO METHICILLIN RESISTANT STAPH AUREUS... Complete 07/21/18 21:30 Urine,Clean Catch Urine Culture - Preliminary NO GROWTH Resulted 07/20/18 15:00 Urine,Clean Catch Urine Culture - Preliminary Gram Negative Shahram Resulted 07/20/18 16:45 Rectum VRE Culture - Final NO VANCOMYCIN RESISTANT ENTEROCOCCUS ... Resulted 07/20/18 16:45 Rectum Pending Resulted Intake and Output 07/21/18 07/22/18 19:00 07:00 Intake Total 2027.7 ml 2047.5 ml Output Total 1035 ml 1240 ml Balance 992.7 ml 807.5 ml Intake IV Total 2027.7 ml 2047.5 ml Output Urine Total 1035 ml 1240 ml # Bowel Movements 1 2 Assessment/Plan Problem List: (1) Renal failure (ARF), acute on chronic (2) Diabetes mellitus type II, uncontrolled Assessment & Plan: Continue insulin drip (3) UTI (urinary tract infection) Assessment & Plan: Gram neg shahram. Continue zosyn per ID (4) Hyperosmolar coma (5) Acute encephalopathy Wei Saez MD Jul 22, 2018 16:15
[2018-07-22] MEDS: NovoLOG Insulin Flexpen SUBQ SCH ×2 (16:44→21:00)
--- NOTE | 2018-07-22 17:27 | NUR ---
NURSE NOTES: Turned and repositioned. NGT inserted per Dr. Kerns for medications. patient is still lethargic and weak. Awaiting for STAT KUB results.
--- NOTE | 2018-07-22 18:50 | NUR ---
NURSE NOTES: NGT placement confirmed via auscultation and KUB. Results are not on computer chart due to system downtime but was able to communicate with generator technician to confirm placement and results of KUB. x1 large pasty tarry and brown stool noted. Turned and repositioned. Kept dry and clean.
--- NOTE | 2018-07-22 19:04 | NUR ---
HAND-OFF: Report given to SHIRIN Garay.
--- NOTE | 2018-07-22 19:30 | NUR ---
NURSE NOTES: Received report from SHIRIN Wright. Patient awake, open eyes, mumbling, no s/s of acute distress noted, On 3 liters via N/C Oxygen saturation 100%. HOB elevated.On p200 for wound management. [place] draining with gage yellow urine with strong foul odor. IV line intact on right F/A, Right wrist #22 and Left AC no s/s of infiltration. On D5W+ 40meq KCl at 75 ml/hr. Noted bilateral soft wrist restraints for safety, however D/c-ing the restraints since pt's not aggressively pulling tubes. Bed alarm on. Bed locked and in low position. Will continue plan of care.
--- NOTE | 2018-07-22 20:30 | Electroencephalogram ---
DATE OF PROCEDURE: 07/22/2018 REQUESTING PHYSICIAN: Jimmie Kerns M.D. READING PHYSICIAN: Srinivasa Bingham M.D. PROCEDURE PERFORMED: EEG. HISTORY: This EEG was performed on a 68-year-old lady with history of severe hyperglycemia, acute kidney injury, respiratory failure with significant hypoxia, and acidosis, who was noted to have a significant alteration in her mental state. The purpose of this EEG was to evaluate the patient for the degree and type of cerebral dysfunction. TECHNICAL NOTE: This EEG was performed on a [employer] with electrodes placed on the scalp according to the International 10-20 system. [id number] and [id number] montages were used. The EEG was of technically mediocre quality due to the fact that large parts of EEG were marred by EMG artifact. OBSERVATIONS: In the best awake state, the background activity consisted of 5- 6 Hz theta with intermixed delta frequencies and a large amount of EMG artifact. Drowsiness was characterized by significant decrease in the amount of EMG artifact. The presence of a background predominantly in the 2.5-3 Hz delta range with some intermixed theta frequencies and the presence of triphasic waveforms. No definite focal abnormalities or epileptiform discharges were seen. IMPRESSION: This is an abnormal EEG characterized by: 1. Slowing of the background in the 5-6 Hz theta range in the best awake state. 2. The presence of triphasic waveforms with an anterior to posterior gradient seen throughout the tracing. COMMENT: This study is consistent with an encephalopathy of a moderately severe degree most probably with a toxic metabolic component is evidenced by the triphasic waveforms. Srinivasa Bingham M.D., M.S.P.H. DR: JAYLON JOB#: [id number] [facility]
--- NOTE | 2018-07-22 22:00 | NUR ---
NURSE NOTES: Pt's resting in bed with eyes closed, in no acute distress. VS stable. Will continue to monitor.
--- NOTE | 2018-07-22 23:52 | Cardiology Progress Note ---
Assessment/Plan Assessment/Plan 1. Hypotension, continue hydration, 2-D echocardiography with normal LV systolic function with no evidence of increased intracardiac filling pressure. 2. Prolongation of QT interval could be due to hypomagnesemia, or hypokalemia, correct the electrolytes. 3. Slight elevation of troponin I level in this patient most likely non-ST elevation myocardial infarction type 2 or demand ischemia in presence of sepsis/ renal failure/pneumonia. No ischemic workup is warranted at this time. 4. Hyperosmolar coma. 5. Right lower and middle lobe pneumonia. Continue IV antibiotics and hydration. Subjective Subjective Sinus rhythm at rate of 64. Obtunded. Objective Last 24 Hour Vital Signs Date Time Temp Pulse Resp B/P (MAP) Pulse Ox O2 Delivery O2 Flow Rate FiO2 07/22/18 22:00 64 16 121/42 (68) 07/22/18 21:00 64 16 121/43 (69) 07/22/18 20:00 99.0 64 16 125/39 (67) 100 07/22/18 20:00 Nasal Cannula 3.0 07/22/18 20:00 60 07/22/18 19:00 68 18 112/49 (70) 100 07/22/18 18:00 72 18 124/49 (74) 100 07/22/18 17:00 79 22 140/55 (83) 100 07/22/18 16:00 90 07/22/18 16:00 Nasal Cannula 3.0 07/22/18 16:00 98.6 86 22 124/50 (74) 100 07/22/18 15:00 77 19 134/59 (84) 100 07/22/18 14:00 66 16 102/52 (69) 100 07/22/18 13:00 59 16 115/44 (67) 100 07/22/18 12:00 98.9 60 17 82/43 (56) 100 07/22/18 12:00 83 07/22/18 12:00 Nasal Cannula 3.0 07/22/18 11:00 55 16 90/42 (58) 100 07/22/18 10:00 58 16 122/48 (72) 100 07/22/18 08:00 76 07/22/18 08:00 Nasal Cannula 3.0 07/22/18 07:00 78 19 109/48 (68) 100 07/22/18 06:00 76 16 98/56 (70) 100 07/22/18 05:08 60 16 92/46 (61) 100 07/22/18 05:03 58 15 86/37 (53) 100 07/22/18 05:00 62 14 88/44 (59) 100 07/22/18 04:00 98.4 78 20 114/56 (75) 100 07/22/18 04:00 Nasal Cannula 3.0 07/22/18 04:00 71 07/22/18 03:00 85 20 125/58 (80) 100 07/22/18 02:00 67 18 104/46 (65) 100 07/22/18 01:00 67 18 104/46 (65) 100 07/22/18 00:00 66 07/22/18 00:00 Nasal Cannula 3.0 07/22/18 00:00 98.0 68 17 123/42 (69) 100 Intake and Output 07/21/18 07/22/18 18:59 06:59 Intake Total 1954.7 ml 2119.5 ml Output Total 950 ml 1240 ml Balance 1004.7 ml 879.5 ml Intake IV Total 1954.7 ml 2119.5 ml Output Urine Total 950 ml 1240 ml # Bowel Movements 1 2 2D Echo: LVEF 55%, RVSP 33 mmHg, Grade I LVDD Laboratory Tests Test 07/22/18 01:56 07/22/18 05:20 Stool Occult Blood Pending White Blood Count 11.0 K/UL (4.8-10.8) H Red Blood Count 3.83 M/UL (4.20-5.40) L Hemoglobin 11.0 G/DL (12.0-16.0) L Hematocrit 34.2 % (37.0-47.0) L Mean Corpuscular Volume 89 FL (80-99) Mean Corpuscular Hemoglobin 28.7 PG (27.0-31.0) Mean Corpuscular Hemoglobin Concent 32.1 G/DL (32.0-36.0) Red Cell Distribution Width 14.9 % (11.6-14.8) H Platelet Count 101 K/UL (150-450) L Mean Platelet Volume 11.3 FL (6.5-10.1) H Neutrophils (%) (Auto) % (45.0-75.0) Lymphocytes (%) (Auto) % (20.0-45.0) Monocytes (%) (Auto) % (1.0-10.0) Eosinophils (%) (Auto) % (0.0-3.0) Basophils (%) (Auto) % (0.0-2.0) Differential Total Cells Counted 100 Neutrophils % (Manual) 72 % (45-75) Lymphocytes % (Manual) 8 % (20-45) L Monocytes % (Manual) 5 % (1-10) Eosinophils % (Manual) 1 % (0-3) Basophils % (Manual) 0 % (0-2) Band Neutrophils 14 % (0-8) H Platelet Estimate Decreased L Platelet Morphology Normal Anisocytosis 1+ Erythrocyte Sedimentation Rate 79 MM/HR (0-30) H Sodium Level 151 MMOL/L (136-145) H Potassium Level 2.9 MMOL/L (3.5-5.1) L Chloride Level 118 MMOL/L (98-107) H Carbon Dioxide Level 19 MMOL/L (21-32) L Anion Gap 14 mmol/L (5-15) Blood Urea Nitrogen 85 mg/dL (7-18) H Creatinine 3.4 MG/DL (0.55-1.30) H Estimat Glomerular Filtration Rate 16.2 mL/min (>60) Glucose Level 93 MG/DL (74-106) Calcium Level 7.3 MG/DL (8.5-10.1) L Phosphorus Level 2.8 MG/DL (2.5-4.9) Magnesium Level 1.9 MG/DL (1.8-2.4) Total Bilirubin 0.7 MG/DL (0.2-1.0) Aspartate Amino Transf (AST/SGOT) 135 U/L (15-37) H Alanine Aminotransferase (ALT/SGPT) 54 U/L (12-78) Alkaline Phosphatase 74 U/L (46-116) C-Reactive Protein, Quantitative > 70.0 mg/dL (0.00-0.90) H Total Protein 5.0 G/DL (6.4-8.2) L Albumin 1.7 G/DL (3.4-5.0) L Globulin 3.3 g/dL Albumin/Globulin Ratio 0.5 (1.0-2.7) L Microbiology Date/Time Source Procedure Growth Status 07/20/18 14:00 Blood Blood Culture - Preliminary NO GROWTH AFTER 24 HOURS Resulted 07/20/18 13:45 Blood Blood Culture - Preliminary NO GROWTH AFTER 24 HOURS Resulted 07/20/18 16:45 Nasal Nares MRSA Culture - Final NO METHICILLIN RESISTANT STAPH AUREUS... Complete 07/21/18 21:30 Urine,Clean Catch Urine Culture - Preliminary NO GROWTH Resulted 07/20/18 15:00 Urine,Clean Catch Urine Culture - Preliminary Gram Negative Shahram Resulted 07/20/18 16:45 Rectum VRE Culture - Final NO VANCOMYCIN RESISTANT ENTEROCOCCUS ... Resulted 07/20/18 16:45 Rectum Pending Resulted Objective HEENT: Atraumatic and normocephalic. Anicteric. Pupils are equal, round, and reactive to light and accommodation. NECK: JVP less than 5 cm. No carotid bruits. Carotid upstrokes 2+ bilaterally. CARDIOVASCULAR: Normal S1, S2. Regular rate and rhythm. No murmurs, gallops, or rubs. LUNGS: Diminished breath sounds at both bases. ABDOMEN: Soft, nontender, and nondistended. No hepatosplenomegaly. Positive bowel sounds. EXTREMITIES: No evidence of edema, clubbing, or cyanosis. Abdelrahman Cardoso MD Jul 22, 2018 23:52
[2018-07-23] VITALS (24 sets, daily range): BP systolic 98–180; BP diastolic 38–93
--- NOTE | 2018-07-23 | NUR ---
NURSE NOTES: Pt's resting in bed, with eyes closed, n no acute distress. VS stable. Will continue to monitor.
--- NOTE | 2018-07-23 00:05 | Cardiology Progress Note ---
Assessment/Plan Assessment/Plan 1. Hypotension, continue hydration, 2-D echocardiography with normal LV systolic function with no evidence of increased intracardiac filling pressure. 2. Prolongation of QT interval could be due to hypomagnesemia, or hypokalemia, correct the electrolytes. 3. Slight elevation of troponin I level in this patient most likely non-ST elevation myocardial infarction type 2 or demand ischemia in presence of sepsis/ renal failure/pneumonia. No ischemic workup is warranted at this time. 4. Hyperosmolar coma. 5. Right lower and middle lobe pneumonia. Continue IV antibiotics and hydration. Subjective Subjective Sinus rhythm at rate of 64. Objective Last 24 Hour Vital Signs Date Time Temp Pulse Resp B/P (MAP) Pulse Ox O2 Delivery O2 Flow Rate FiO2 07/22/18 22:00 64 16 121/42 (68) 07/22/18 21:00 64 16 121/43 (69) 07/22/18 20:00 99.0 64 16 125/39 (67) 100 07/22/18 20:00 Nasal Cannula 3.0 07/22/18 20:00 60 07/22/18 19:00 68 18 112/49 (70) 100 07/22/18 18:00 72 18 124/49 (74) 100 07/22/18 17:00 79 22 140/55 (83) 100 07/22/18 16:00 90 07/22/18 16:00 Nasal Cannula 3.0 07/22/18 16:00 98.6 86 22 124/50 (74) 100 07/22/18 15:00 77 19 134/59 (84) 100 07/22/18 14:00 66 16 102/52 (69) 100 07/22/18 13:00 59 16 115/44 (67) 100 07/22/18 12:00 98.9 60 17 82/43 (56) 100 07/22/18 12:00 83 07/22/18 12:00 Nasal Cannula 3.0 07/22/18 11:00 55 16 90/42 (58) 100 07/22/18 10:00 58 16 122/48 (72) 100 07/22/18 08:00 76 07/22/18 08:00 Nasal Cannula 3.0 07/22/18 07:00 78 19 109/48 (68) 100 07/22/18 06:00 76 16 98/56 (70) 100 07/22/18 05:08 60 16 92/46 (61) 100 07/22/18 05:03 58 15 86/37 (53) 100 07/22/18 05:00 62 14 88/44 (59) 100 07/22/18 04:00 98.4 78 20 114/56 (75) 100 07/22/18 04:00 Nasal Cannula 3.0 07/22/18 04:00 71 07/22/18 03:00 85 20 125/58 (80) 100 07/22/18 02:00 67 18 104/46 (65) 100 07/22/18 01:00 67 18 104/46 (65) 100 Intake and Output 07/22/18 07/23/18 18:59 06:59 Intake Total 484.5 ml Output Total 1185 ml 380 ml Balance -700.5 ml -380 ml Intake IV Total 484.5 ml Output Urine Total 1185 ml 380 ml # Bowel Movements 1 2D Echo: LVEF 55%, RVSP 33 mmHg, Grade I LVDD Laboratory Tests Test 07/22/18 01:56 07/22/18 05:20 Stool Occult Blood Pending White Blood Count 11.0 K/UL (4.8-10.8) H Red Blood Count 3.83 M/UL (4.20-5.40) L Hemoglobin 11.0 G/DL (12.0-16.0) L Hematocrit 34.2 % (37.0-47.0) L Mean Corpuscular Volume 89 FL (80-99) Mean Corpuscular Hemoglobin 28.7 PG (27.0-31.0) Mean Corpuscular Hemoglobin Concent 32.1 G/DL (32.0-36.0) Red Cell Distribution Width 14.9 % (11.6-14.8) H Platelet Count 101 K/UL (150-450) L Mean Platelet Volume 11.3 FL (6.5-10.1) H Neutrophils (%) (Auto) % (45.0-75.0) Lymphocytes (%) (Auto) % (20.0-45.0) Monocytes (%) (Auto) % (1.0-10.0) Eosinophils (%) (Auto) % (0.0-3.0) Basophils (%) (Auto) % (0.0-2.0) Differential Total Cells Counted 100 Neutrophils % (Manual) 72 % (45-75) Lymphocytes % (Manual) 8 % (20-45) L Monocytes % (Manual) 5 % (1-10) Eosinophils % (Manual) 1 % (0-3) Basophils % (Manual) 0 % (0-2) Band Neutrophils 14 % (0-8) H Platelet Estimate Decreased L Platelet Morphology Normal Anisocytosis 1+ Erythrocyte Sedimentation Rate 79 MM/HR (0-30) H Sodium Level 151 MMOL/L (136-145) H Potassium Level 2.9 MMOL/L (3.5-5.1) L Chloride Level 118 MMOL/L (98-107) H Carbon Dioxide Level 19 MMOL/L (21-32) L Anion Gap 14 mmol/L (5-15) Blood Urea Nitrogen 85 mg/dL (7-18) H Creatinine 3.4 MG/DL (0.55-1.30) H Estimat Glomerular Filtration Rate 16.2 mL/min (>60) Glucose Level 93 MG/DL (74-106) Calcium Level 7.3 MG/DL (8.5-10.1) L Phosphorus Level 2.8 MG/DL (2.5-4.9) Magnesium Level 1.9 MG/DL (1.8-2.4) Total Bilirubin 0.7 MG/DL (0.2-1.0) Aspartate Amino Transf (AST/SGOT) 135 U/L (15-37) H Alanine Aminotransferase (ALT/SGPT) 54 U/L (12-78) Alkaline Phosphatase 74 U/L (46-116) C-Reactive Protein, Quantitative > 70.0 mg/dL (0.00-0.90) H Total Protein 5.0 G/DL (6.4-8.2) L Albumin 1.7 G/DL (3.4-5.0) L Globulin 3.3 g/dL Albumin/Globulin Ratio 0.5 (1.0-2.7) L Microbiology Date/Time Source Procedure Growth Status 07/20/18 14:00 Blood Blood Culture - Preliminary NO GROWTH AFTER 24 HOURS Resulted 07/20/18 13:45 Blood Blood Culture - Preliminary NO GROWTH AFTER 24 HOURS Resulted 07/20/18 16:45 Nasal Nares MRSA Culture - Final NO METHICILLIN RESISTANT STAPH AUREUS... Complete 07/21/18 21:30 Urine,Clean Catch Urine Culture - Preliminary NO GROWTH Resulted 07/20/18 15:00 Urine,Clean Catch Urine Culture - Preliminary Gram Negative Shahram Resulted 07/20/18 16:45 Rectum VRE Culture - Final NO VANCOMYCIN RESISTANT ENTEROCOCCUS ... Resulted 07/20/18 16:45 Rectum Pending Resulted Objective HEENT: Atraumatic and normocephalic. Anicteric. Pupils are equal, round, and reactive to light and accommodation. NECK: JVP less than 5 cm. No carotid bruits. Carotid upstrokes 2+ bilaterally. CARDIOVASCULAR: Normal S1, S2. Regular rate and rhythm. No murmurs, gallops, or rubs. LUNGS: Diminished breath sounds at both bases. ABDOMEN: Soft, nontender, and nondistended. No hepatosplenomegaly. Positive bowel sounds. EXTREMITIES: No evidence of edema, clubbing, or cyanosis. Abdelrahman Cardoso MD Jul 23, 2018 00:05
[2018-07-23] MEDS: NovoLOG Insulin Flexpen SUBQ SCH ×6 (01:00→20:54)
--- NOTE | 2018-07-23 02:00 | NUR ---
NURSE NOTES: Pt's resting in bed, with eyes closed, n no acute distress. VS stable. Will continue to monitor.
--- NOTE | 2018-07-23 04:00 | NUR ---
NURSE NOTES: Pt's resting in bed, eyes closed, as sleep. In no acute distress. VS stable. Will continue to monitor.
--- NOTE | 2018-07-23 06:00 | NUR ---
NURSE NOTES: Pt's resting in bed, eyes closed, as sleep. In no acute distress. VS stable. Will continue to monitor.
[2018-07-23 06:01] LABS: HEMATOCRIT 28.3 % (37.0-47.0); HEMOGLOBIN 9.5 G/DL (12.0-16.0); MEAN CORPUSCULAR VOLUME 88 FL (80-99); PLATELET COUNT 76 K/UL (150-450); RED BLOOD COUNT 3.22 M/UL (4.20-5.40); RED CELL DISTRIBUTION WIDTH 14.8 % (11.6-14.8); WHITE BLOOD COUNT 10.6 K/UL (4.8-10.8)
[2018-07-23 06:44] LABS: ALANINE AMINOTRANSFERASE 52 U/L (12-78); ALBUMIN 1.4 G/DL (3.4-5.0); ALBUMIN/GLOBULIN RATIO 0.4 (1.0-2.7); ALKALINE PHOSPHATASE 84 U/L (46-116); ANION GAP 13 mmol/L (5-15); ASPARTATE AMINO TRANSFERASE 104 U/L (15-37); BILIRUBIN,TOTAL 0.7 MG/DL (0.2-1.0); BLOOD UREA NITROGEN 56 mg/dL (7-18); CALCIUM 7.1 MG/DL (8.5-10.1); CARBON DIOXIDE 19 MMOL/L (21-32); CHLORIDE 116 MMOL/L (98-107); CREATININE 2.3 MG/DL (0.55-1.30); PHOSPHORUS 2.3 MG/DL (2.5-4.9); POTASSIUM 2.9 MMOL/L (3.5-5.1); SODIUM 148 MMOL/L (136-145)
--- NOTE | 2018-07-23 06:53 | General Progress Note ---
Assessment/Plan Problem List: (1) Rhabdomyolysis ICD Codes: M62.82 - Rhabdomyolysis SNOMED: 090599845 Qualifiers: Qualified Codes: M62.82 - Rhabdomyolysis (2) Pancreatitis ICD Codes: K85.90 - Acute pancreatitis without necrosis or infection, unspecified SNOMED: 55387226 Qualifiers: Qualified Codes: K85.90 - Acute pancreatitis without necrosis or infection, unspecified (3) Hyperglycemia ICD Codes: R73.9 - Hyperglycemia, unspecified SNOMED: 19732504 (4) Severe sepsis ICD Codes: A41.9 - Sepsis, unspecified organism; R65.20 - Severe sepsis without septic shock SNOMED: 47122129 (5) Elevated troponin ICD Codes: R74.8 - Abnormal levels of other serum enzymes SNOMED: 380749612, 169254846, 225118901 (6) Hyperosmolar coma ICD Codes: E11.01 - Type 2 diabetes mellitus with hyperosmolarity with coma SNOMED: 188356412 (7) Diabetes mellitus type II, uncontrolled ICD Codes: E11.65 - Type 2 diabetes mellitus with hyperglycemia SNOMED: 84958163, 845095491 (8) Renal failure (ARF), acute on chronic ICD Codes: N17.9 - Acute kidney failure, unspecified; N18.9 - Chronic kidney disease, unspecified SNOMED: 396078292 Assessment/Plan continue Levemir 10 units bid continue NISS every 4 hours Subjective ROS Limited/Unobtainable: Yes Allergies: Coded Allergies: SULFA (SULFONAMIDE ANTIBIOTICS) (Verified Allergy, Unknown, 07/20/18) Subjective events noted Item Value Date Time Bedside Blood Glucose 90 mg/dl 07/23/18 0500 Bedside Blood Glucose 89 mg/dl 07/23/18 0100 Bedside Blood Glucose 106 mg/dl 07/22/18 2235 Bedside Blood Glucose 153 mg/dl H 07/22/18 1644 Bedside Blood Glucose 102 mg/dl 07/22/18 1400 Bedside Blood Glucose 227 mg/dl H 07/22/18 1000 Bedside Blood Glucose 85 mg/dl 07/22/18 0600 Bedside Blood Glucose 156 mg/dl H 07/22/18 0225 Objective Last 24 Hour Vital Signs Date Time Temp Pulse Resp B/P (MAP) Pulse Ox O2 Delivery O2 Flow Rate FiO2 07/23/18 02:00 63 16 121/38 (65) 100 07/23/18 01:00 63 16 123/47 (72) 100 07/23/18 00:00 98.9 63 16 120/42 (68) 100 07/23/18 00:00 Nasal Cannula 3.0 07/23/18 00:00 62 07/22/18 23:00 64 17 121/42 (68) 100 07/22/18 22:00 64 16 121/42 (68) 07/22/18 21:00 64 16 121/43 (69) 07/22/18 20:00 99.0 64 16 125/39 (67) 100 07/22/18 20:00 Nasal Cannula 3.0 07/22/18 20:00 60 07/22/18 19:00 68 18 112/49 (70) 100 07/22/18 18:00 72 18 124/49 (74) 100 07/22/18 17:00 79 22 140/55 (83) 100 07/22/18 16:00 90 07/22/18 16:00 Nasal Cannula 3.0 07/22/18 16:00 98.6 86 22 124/50 (74) 100 07/22/18 15:00 77 19 134/59 (84) 100 07/22/18 14:00 66 16 102/52 (69) 100 07/22/18 13:00 59 16 115/44 (67) 100 07/22/18 12:00 98.9 60 17 82/43 (56) 100 07/22/18 12:00 83 07/22/18 12:00 Nasal Cannula 3.0 07/22/18 11:00 55 16 90/42 (58) 100 07/22/18 10:00 58 16 122/48 (72) 100 07/22/18 08:00 76 07/22/18 08:00 Nasal Cannula 3.0 07/22/18 07:00 78 19 109/48 (68) 100 Intake and Output 07/22/18 07/23/18 19:00 07:00 Intake Total 481.5 ml 714.583 ml Output Total 1200 ml 650 ml Balance -718.5 ml 64.583 ml Intake IV Total 481.5 ml 714.583 ml Output Urine Total 1200 ml 650 ml # Bowel Movements 1 Laboratory Tests 07/23/18 05:10: White Blood Count 10.6, Red Blood Count 3.22L, Hemoglobin 9.5L, Hematocrit 28.3L , Mean Corpuscular Volume 88, Mean Corpuscular Hemoglobin 29.5, Mean Corpuscular Hemoglobin Concent 33.6, Red Cell Distribution Width 14.8, Platelet Count 76L, Mean Platelet Volume 10.3H, Neutrophils (%) (Auto) , Lymphocytes (%) (Auto) , Monocytes (%) (Auto) , Eosinophils (%) (Auto) , Basophils (%) (Auto) , Sodium Level [Pending], Potassium Level [Pending], Chloride Level [Pending], Carbon Dioxide Level [Pending], Blood Urea Nitrogen [Pending], Creatinine [ Pending], Estimat Glomerular Filtration Rate [Pending], Glucose Level [Pending] , Lactic Acid Level 1.80, Calcium Level [Pending], Phosphorus Level [Pending], Magnesium Level [Pending], Total Bilirubin [Pending], Aspartate Amino Transf ( AST/SGOT) [Pending], Alanine Aminotransferase (ALT/SGPT) [Pending], Alkaline Phosphatase [Pending], Total Protein [Pending], Albumin [Pending], Globulin [ Pending] Height (Feet): 5 Height (Inches): 3.00 Weight (Pounds): 160 General Appearance: no apparent distress Neck: normal alignment Cardiovascular: regular rhythm Respiratory/Chest: normal breath sounds Abdomen: normal bowel sounds Pelvis: normal external exam Objective Current Medications Medications (Trade) Dose Ordered Sig/Sylvester Route PRN Reason Start Time Stop Time Status Last Admin Dose Admin Acetaminophen (Tylenol) 650 mg Q4H PRN ORAL Fever (Temp>100.5F) 07/20/18 18:15 08/19/18 18:14 Albuterol/ Ipratropium (Albuterol/ Ipratropium) 3 ml Q4H PRN HHN Shortness of Breath 07/20/18 18:15 07/25/18 18:14 Dextrose (Dextrose 50%) 25 ml Q30M PRN IV Hypoglycemia 07/22/18 14:45 08/21/18 14:44 Dextrose (Dextrose 50%) 50 ml Q30M PRN IV Hypoglycemia 07/22/18 14:45 08/21/18 14:44 Heparin Sodium (Porcine) (Heparin 5000 units/ml) 5,000 units EVERY 12 HOURS SUBQ 07/20/18 21:00 08/19/18 20:59 07/22/18 20:50 Insulin Aspart (NovoLOG) Q4HR SUBQ 07/22/18 17:00 08/21/18 16:59 07/22/18 16:44 Insulin Detemir (Levemir) 10 units Q12HR SUBQ 07/22/18 15:45 08/21/18 15:44 07/22/18 21:12 Lorazepam (Ativan 2mg/ml 1ml) 2 mg Q2H PRN IV agitation 07/20/18 18:15 07/27/18 18:14 07/22/18 10:16 Ondansetron HCl (Zofran) 4 mg Q6H PRN IVP Nausea & Vomiting 07/20/18 18:15 08/19/18 18:14 Piperacillin Sod/ Tazobactam Sod 3.375 gm/Sodium Chloride 110 ml @ 27.5 mls/hr EVERY 12 HOURS IVPB 07/20/18 22:00 07/27/18 21:59 07/22/18 20:49 Potassium Chloride 40 meq/ Dextrose 1,020 ml @ 75 mls/hr [id number] IV 07/22/18 14:00 08/21/18 13:59 07/22/18 20:49 Luke Moran MD Jul 23, 2018 06:52
--- NOTE | 2018-07-23 07:23 | NUR ---
HAND-OFF: Report given to SHIRIN Blanc.
--- NOTE | 2018-07-23 08:00 | NUR ---
NURSE NOTES: Patient report received from SHIRIN MARTI. Patient is with eyes open and making incomprehensible noises, no pain noted using the FLACC scale, she is in sinus tachycardia at 100-110, she is on 3L/min with saturations of 97-99% with no distress noted, lungs are clear and diminished with RR of 15-22, [place] is draining straw color with sediments, NG-tube is patent with gurgling sound hear over the left upper quadrant, will continue plan of care.
[2018-07-23] MEDS: Heparin 5000 units/ml inj SUBQ SCH (09:00)
--- NOTE | 2018-07-23 10:00 | NUR ---
NURSE NOTES: US study completed at the bedside, patient tolerated with no distress noted, will continue to monitor.
--- NOTE | 2018-07-23 10:20 | Pulmonolgy Critical Care Note ---
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, 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 - Objective Last 24 Hour Vital Signs Date Time Temp Pulse Resp B/P (MAP) Pulse Ox O2 Delivery O2 Flow Rate FiO2 07/23/18 07:00 98.8 90 16 142/59 (86) 100 07/23/18 06:00 80 16 136/53 (80) 100 07/23/18 05:00 64 18 98/47 (64) 100 07/23/18 04:00 60 14 122/42 (68) 100 07/23/18 04:00 60 07/23/18 04:00 Nasal Cannula 3.0 07/23/18 03:00 62 16 119/46 (70) 100 07/23/18 02:00 63 16 121/38 (65) 100 07/23/18 01:00 63 16 123/47 (72) 100 07/23/18 00:00 98.9 63 16 120/42 (68) 100 07/23/18 00:00 Nasal Cannula 3.0 07/23/18 00:00 62 07/22/18 23:00 64 17 121/42 (68) 100 07/22/18 22:00 64 16 121/42 (68) 07/22/18 21:00 64 16 121/43 (69) 07/22/18 20:00 99.0 64 16 125/39 (67) 100 07/22/18 20:00 Nasal Cannula 3.0 07/22/18 20:00 60 07/22/18 19:00 68 18 112/49 (70) 100 07/22/18 18:00 72 18 124/49 (74) 100 07/22/18 17:00 79 22 140/55 (83) 100 07/22/18 16:00 90 07/22/18 16:00 Nasal Cannula 3.0 07/22/18 16:00 98.6 86 22 124/50 (74) 100 07/22/18 15:00 77 19 134/59 (84) 100 07/22/18 14:00 66 16 102/52 (69) 100 07/22/18 13:00 59 16 115/44 (67) 100 07/22/18 12:00 98.9 60 17 82/43 (56) 100 07/22/18 12:00 83 07/22/18 12:00 Nasal Cannula 3.0 07/22/18 11:00 55 16 90/42 (58) 100 Status: somnolent Condition: critical HEENT: atraumatic Lungs: clear Heart: HR/BP stable, HR/BP unstable Abdomen: soft, active bowel sounds Decubiti: location Micro: Microbiology Date/Time Source Procedure Growth Status 07/20/18 14:00 Blood Blood Culture - Preliminary NO GROWTH AFTER 48 HOURS Resulted 07/20/18 13:45 Blood Blood Culture - Preliminary NO GROWTH AFTER 48 HOURS Resulted 07/20/18 16:45 Nasal Nares MRSA Culture - Final NO METHICILLIN RESISTANT STAPH AUREUS... Complete 07/21/18 21:30 Urine,Clean Catch Urine Culture - Preliminary Gram Negative Bacillus 1 Resulted 07/20/18 15:00 Urine,Clean Catch Urine Culture - Final Proteus Mirabilis Complete 07/20/18 16:45 Rectum VRE Culture - Final NO VANCOMYCIN RESISTANT ENTEROCOCCUS ... Complete 07/20/18 16:45 Rectum - Final NO CARBAPENEM-RESISTANT ENTEROBACTERI... Complete Accucheck: 90 Critical Care - Subjective ROS Limited/Unobtainable: No Condition: critical EKG Rhythm: Sinus Rhythm FI02: 28 Fluids: d5 w 40Kcl at 75 cc/hour I&O: Intake and Output 07/22/18 07/23/18 19:00 07:00 Intake Total 481.5 ml 1014.583 ml Output Total 1200 ml 1150 ml Balance -718.5 ml -135.417 ml Intake IV Total 481.5 ml 1014.583 ml Output Urine Total 1200 ml 1150 ml # Bowel Movements 1 1 CXR: ALEJANDRA Labs: Laboratory Tests Test 07/23/18 05:10 07/23/18 08:46 White Blood Count 10.6 K/UL (4.8-10.8) Red Blood Count 3.22 M/UL (4.20-5.40) L Hemoglobin 9.5 G/DL (12.0-16.0) L Hematocrit 28.3 % (37.0-47.0) L Mean Corpuscular Volume 88 FL (80-99) Mean Corpuscular Hemoglobin 29.5 PG (27.0-31.0) Mean Corpuscular Hemoglobin Concent 33.6 G/DL (32.0-36.0) Red Cell Distribution Width 14.8 % (11.6-14.8) Platelet Count 76 K/UL (150-450) L Mean Platelet Volume 10.3 FL (6.5-10.1) H Neutrophils (%) (Auto) % (45.0-75.0) Lymphocytes (%) (Auto) % (20.0-45.0) Monocytes (%) (Auto) % (1.0-10.0) Eosinophils (%) (Auto) % (0.0-3.0) Basophils (%) (Auto) % (0.0-2.0) Differential Total Cells Counted 100 Neutrophils % (Manual) 83 % (45-75) H Lymphocytes % (Manual) 8 % (20-45) L Monocytes % (Manual) 1 % (1-10) Eosinophils % (Manual) 1 % (0-3) Basophils % (Manual) 0 % (0-2) Band Neutrophils 7 % (0-8) Platelet Estimate Decreased L Platelet Morphology Normal Anisocytosis 1+ Sodium Level 148 MMOL/L (136-145) H Potassium Level 2.9 MMOL/L (3.5-5.1) L Chloride Level 116 MMOL/L (98-107) H Carbon Dioxide Level 19 MMOL/L (21-32) L Anion Gap 13 mmol/L (5-15) Blood Urea Nitrogen 56 mg/dL (7-18) H Creatinine 2.3 MG/DL (0.55-1.30) H Estimat Glomerular Filtration Rate 25.5 mL/min (>60) Glucose Level 74 MG/DL (74-106) Lactic Acid Level 1.80 mmol/L (0.4-2.0) Calcium Level 7.1 MG/DL (8.5-10.1) L Phosphorus Level 2.3 MG/DL (2.5-4.9) L Magnesium Level 1.4 MG/DL (1.8-2.4) L Total Bilirubin 0.7 MG/DL (0.2-1.0) Aspartate Amino Transf (AST/SGOT) 104 U/L (15-37) H Alanine Aminotransferase (ALT/SGPT) 52 U/L (12-78) Alkaline Phosphatase 84 U/L (46-116) Total Protein 4.8 G/DL (6.4-8.2) L Albumin 1.4 G/DL (3.4-5.0) L Globulin 3.4 g/dL Albumin/Globulin Ratio 0.4 (1.0-2.7) L Arterial Blood pH 7.485 (7.350-7.450) Arterial Blood Partial Pressure CO2 23.1 mmHg (35.0-45.0) *L Arterial Blood Partial Pressure O2 70.5 mmHg (75.0-100.0) L Arterial Blood HCO3 17.0 mmol/L (22.0-26.0) *L Arterial Blood Oxygen Saturation 94.1 % (95-100) L Arterial Blood Base Excess -4.9 (-2-2) L Reed Test Positive Mara Richard MD Jul 23, 2018 10:20
[2018-07-23] MEDS: Levemir Flexpen SUBQ SCH ×2 (10:38→20:55)
--- NOTE | 2018-07-23 10:47 | NUR ---
RADIOLOGY DEPT., CHEST X-RAY DONE.-P.DYE
[2018-07-23] MEDS ORDERED: Potassium Chloride 40 MEQ in Sodium Chloride 550 ML IVPB ONE (11:00)
--- NOTE | 2018-07-23 11:00 | NUR ---
NURSE NOTES: Dr. Richard aware of patient labs and assessed at the bedside, no verbal orders given at this time, will continue plan of care.
[2018-07-23] MEDS ORDERED: Sodium Phosphate 30 MM in NS 275 ML IV ONE (12:45)
--- NOTE | 2018-07-23 12:50 | Nephrology Progress Note ---
Assessment/Plan Problem List: (1) Renal failure (ARF), acute on chronic Assessment: better (2) Hyperosmolar coma (3) UTI (urinary tract infection) (4) Acute encephalopathy (5) Diabetes mellitus type II, uncontrolled (6) Hypokalemia Plan Replete K IVF discussed with RN follow labs Subjective Subjective moans still lethargic Objective Objective Last 24 Hour Vital Signs Date Time Temp Pulse Resp B/P (MAP) Pulse Ox O2 Delivery O2 Flow Rate FiO2 07/23/18 12:00 98.7 63 15 122/55 (77) 100 07/23/18 12:00 Nasal Cannula 3.0 07/23/18 11:00 66 17 123/51 (75) 100 07/23/18 10:00 102 19 167/65 (99) 100 07/23/18 09:00 75 21 121/45 (70) 100 07/23/18 09:00 98 07/23/18 08:00 Nasal Cannula 3.0 07/23/18 08:00 98.1 99 20 147/60 (89) 100 07/23/18 07:00 98.8 90 16 142/59 (86) 100 07/23/18 06:00 80 16 136/53 (80) 100 07/23/18 05:00 64 18 98/47 (64) 100 07/23/18 04:00 60 14 122/42 (68) 100 07/23/18 04:00 60 07/23/18 04:00 Nasal Cannula 3.0 07/23/18 03:00 62 16 119/46 (70) 100 07/23/18 02:00 63 16 121/38 (65) 100 07/23/18 01:00 63 16 123/47 (72) 100 07/23/18 00:00 98.9 63 16 120/42 (68) 100 07/23/18 00:00 Nasal Cannula 3.0 07/23/18 00:00 62 07/22/18 23:00 64 17 121/42 (68) 100 07/22/18 22:00 64 16 121/42 (68) 07/22/18 21:00 64 16 121/43 (69) 07/22/18 20:00 99.0 64 16 125/39 (67) 100 07/22/18 20:00 Nasal Cannula 3.0 07/22/18 20:00 60 07/22/18 19:00 68 18 112/49 (70) 100 07/22/18 18:00 72 18 124/49 (74) 100 07/22/18 17:00 79 22 140/55 (83) 100 07/22/18 16:00 90 07/22/18 16:00 Nasal Cannula 3.0 07/22/18 16:00 98.6 86 22 124/50 (74) 100 07/22/18 15:00 77 19 134/59 (84) 100 07/22/18 14:00 66 16 102/52 (69) 100 07/22/18 13:00 59 16 115/44 (67) 100 Intake and Output 07/22/18 07/23/18 19:00 07:00 Intake Total 481.5 ml 1014.583 ml Output Total 1200 ml 1150 ml Balance -718.5 ml -135.417 ml Intake IV Total 481.5 ml 1014.583 ml Output Urine Total 1200 ml 1150 ml # Bowel Movements 1 1 Laboratory Tests 07/23/18 05:10: White Blood Count 10.6, Red Blood Count 3.22L, Hemoglobin 9.5L, Hematocrit 28.3L , Mean Corpuscular Volume 88, Mean Corpuscular Hemoglobin 29.5, Mean Corpuscular Hemoglobin Concent 33.6, Red Cell Distribution Width 14.8, Platelet Count 76L, Mean Platelet Volume 10.3H, Neutrophils (%) (Auto) , Lymphocytes (%) (Auto) , Monocytes (%) (Auto) , Eosinophils (%) (Auto) , Basophils (%) (Auto) , Differential Total Cells Counted 100, Neutrophils % (Manual) 83H, Lymphocytes % (Manual) 8L, Monocytes % (Manual) 1, Eosinophils % (Manual) 1, Basophils % ( Manual) 0, Band Neutrophils 7, Platelet Estimate DecreasedL, Platelet Morphology Normal, Anisocytosis 1+, Sodium Level 148H, Potassium Level 2.9L, Chloride Level 116H, Carbon Dioxide Level 19L, Anion Gap 13, Blood Urea Nitrogen 56H, Creatinine 2.3H, Estimat Glomerular Filtration Rate 25.5, Glucose Level 74, Lactic Acid Level 1.80, Calcium Level 7.1L, Phosphorus Level 2.3L, Magnesium Level 1.4L, Total Bilirubin 0.7, Aspartate Amino Transf (AST/SGOT) 104H, Alanine Aminotransferase (ALT/SGPT) 52, Alkaline Phosphatase 84, Total Protein 4.8L, Albumin 1.4L, Globulin 3.4, Albumin/Globulin Ratio 0.4L 07/23/18 08:46: Arterial Blood pH 7.485H, Arterial Blood Partial Pressure CO2 23.1*L, Arterial Blood Partial Pressure O2 70.5L, Arterial Blood HCO3 17.0*L, Arterial Blood Oxygen Saturation 94.1L, Arterial Blood Base Excess -4.9L, Reed Test Positive Height (Feet): 5 Height (Inches): 3.00 Weight (Pounds): 160 Cardiovascular: normal rate Respiratory/Chest: lungs clear Extremities: other - no edema Pepe Bowling MD Jul 23, 2018 12:50
--- NOTE | 2018-07-23 13:00 | NUR ---
NURSE NOTES: MRI scan to be done at 1400, patient able to tolerate laying flat for approximately 5min with no distress noted, Ashvin aware and will return for study within one hour, will continue plan of care.
--- NOTE | 2018-07-23 13:16 | Infectious Diseases Prog Note ---
Assessment/Plan Assessment/Plan ASSESSMENT: The patient is a 68-year-old female with, 1. Probable urinary tract infection. -u/a wbc tnct; ucx >100k P. mirabilsi (denney S); repaet ucx <10k GNR 2. Probable aspiration pneumonia. -CXR" Hyperinflated lungs of COPD. Bilateral perihilar opacities, similar to prior study, may be edema or infiltrate. 3. Probable sepsis. 4. Afebrile. 5. Hyperglycemia, most likely the reason for the patient's altered level of consciousness. Leukocytosis, resolved - Diabetes. - Dementia. - Hypertension. PLAN: 1. Switch Zosyn #/ to Ceftriaxone for UTI and proable PNA -07/20 SP Ceftriaxone x1 2. Monitor CBC. 3. Monitor BMP. 4. Monitor cultures (blood, urine, sputum). 5. Monitor chest x-ray. 6. Based on the patient's clinical course and labs, we will do further recommendations. Thank you for this consultation. I will follow the patient with you during this hospitalization. Subjective Allergies: Coded Allergies: SULFA (SULFONAMIDE ANTIBIOTICS) (Verified Allergy, Unknown, 07/20/18) Subjective afebrile at 3L NC no pressors leukocytosis resolvd Bcx NTD Objective Vital Signs Last 24 Hour Vital Signs Date Time Temp Pulse Resp B/P (MAP) Pulse Ox O2 Delivery O2 Flow Rate FiO2 07/23/18 12:00 98.7 63 15 122/55 (77) 100 07/23/18 12:00 Nasal Cannula 3.0 07/23/18 11:00 66 17 123/51 (75) 100 07/23/18 10:00 102 19 167/65 (99) 100 07/23/18 09:00 75 21 121/45 (70) 100 07/23/18 09:00 98 07/23/18 08:00 Nasal Cannula 3.0 07/23/18 08:00 98.1 99 20 147/60 (89) 100 07/23/18 07:00 98.8 90 16 142/59 (86) 100 07/23/18 06:00 80 16 136/53 (80) 100 07/23/18 05:00 64 18 98/47 (64) 100 07/23/18 04:00 60 14 122/42 (68) 100 07/23/18 04:00 60 07/23/18 04:00 Nasal Cannula 3.0 07/23/18 03:00 62 16 119/46 (70) 100 07/23/18 02:00 63 16 121/38 (65) 100 07/23/18 01:00 63 16 123/47 (72) 100 07/23/18 00:00 98.9 63 16 120/42 (68) 100 07/23/18 00:00 Nasal Cannula 3.0 07/23/18 00:00 62 07/22/18 23:00 64 17 121/42 (68) 100 07/22/18 22:00 64 16 121/42 (68) 07/22/18 21:00 64 16 121/43 (69) 07/22/18 20:00 99.0 64 16 125/39 (67) 100 07/22/18 20:00 Nasal Cannula 3.0 07/22/18 20:00 60 07/22/18 19:00 68 18 112/49 (70) 100 07/22/18 18:00 72 18 124/49 (74) 100 07/22/18 17:00 79 22 140/55 (83) 100 07/22/18 16:00 90 07/22/18 16:00 Nasal Cannula 3.0 07/22/18 16:00 98.6 86 22 124/50 (74) 100 07/22/18 15:00 77 19 134/59 (84) 100 07/22/18 14:00 66 16 102/52 (69) 100 Height (Feet): 5 Height (Inches): 3.00 Weight (Pounds): 160 Objective HEENT: No pale conjunctivae. No icterus. NECK: No lymphadenopathy. CHEST: Clear. HEART: S1 and S2. ABDOMEN: Soft. EXTREMITIES: No cyanosis. NEUROLOGIC: Lethargic. Microbiology Date/Time Source Procedure Growth Status 07/20/18 14:00 Blood Blood Culture - Preliminary NO GROWTH AFTER 48 HOURS Resulted 07/20/18 13:45 Blood Blood Culture - Preliminary NO GROWTH AFTER 48 HOURS Resulted 07/20/18 16:45 Nasal Nares MRSA Culture - Final NO METHICILLIN RESISTANT STAPH AUREUS... Complete 07/21/18 21:30 Urine,Clean Catch Urine Culture - Preliminary Gram Negative Bacillus 1 Resulted 07/20/18 15:00 Urine,Clean Catch Urine Culture - Final Proteus Mirabilis Complete 07/20/18 16:45 Rectum VRE Culture - Final NO VANCOMYCIN RESISTANT ENTEROCOCCUS ... Complete 07/20/18 16:45 Rectum - Final NO CARBAPENEM-RESISTANT ENTEROBACTERI... Complete Laboratory Tests Test 07/23/18 05:10 07/23/18 08:46 White Blood Count 10.6 K/UL (4.8-10.8) Red Blood Count 3.22 M/UL (4.20-5.40) L Hemoglobin 9.5 G/DL (12.0-16.0) L Hematocrit 28.3 % (37.0-47.0) L Mean Corpuscular Volume 88 FL (80-99) Mean Corpuscular Hemoglobin 29.5 PG (27.0-31.0) Mean Corpuscular Hemoglobin Concent 33.6 G/DL (32.0-36.0) Red Cell Distribution Width 14.8 % (11.6-14.8) Platelet Count 76 K/UL (150-450) L Mean Platelet Volume 10.3 FL (6.5-10.1) H Neutrophils (%) (Auto) % (45.0-75.0) Lymphocytes (%) (Auto) % (20.0-45.0) Monocytes (%) (Auto) % (1.0-10.0) Eosinophils (%) (Auto) % (0.0-3.0) Basophils (%) (Auto) % (0.0-2.0) Differential Total Cells Counted 100 Neutrophils % (Manual) 83 % (45-75) H Lymphocytes % (Manual) 8 % (20-45) L Monocytes % (Manual) 1 % (1-10) Eosinophils % (Manual) 1 % (0-3) Basophils % (Manual) 0 % (0-2) Band Neutrophils 7 % (0-8) Platelet Estimate Decreased L Platelet Morphology Normal Anisocytosis 1+ Sodium Level 148 MMOL/L (136-145) H Potassium Level 2.9 MMOL/L (3.5-5.1) L Chloride Level 116 MMOL/L (98-107) H Carbon Dioxide Level 19 MMOL/L (21-32) L Anion Gap 13 mmol/L (5-15) Blood Urea Nitrogen 56 mg/dL (7-18) H Creatinine 2.3 MG/DL (0.55-1.30) H Estimat Glomerular Filtration Rate 25.5 mL/min (>60) Glucose Level 74 MG/DL (74-106) Lactic Acid Level 1.80 mmol/L (0.4-2.0) Calcium Level 7.1 MG/DL (8.5-10.1) L Phosphorus Level 2.3 MG/DL (2.5-4.9) L Magnesium Level 1.4 MG/DL (1.8-2.4) L Total Bilirubin 0.7 MG/DL (0.2-1.0) Aspartate Amino Transf (AST/SGOT) 104 U/L (15-37) H Alanine Aminotransferase (ALT/SGPT) 52 U/L (12-78) Alkaline Phosphatase 84 U/L (46-116) Total Protein 4.8 G/DL (6.4-8.2) L Albumin 1.4 G/DL (3.4-5.0) L Globulin 3.4 g/dL Albumin/Globulin Ratio 0.4 (1.0-2.7) L Arterial Blood pH 7.485 (7.350-7.450) Arterial Blood Partial Pressure CO2 23.1 mmHg (35.0-45.0) *L Arterial Blood Partial Pressure O2 70.5 mmHg (75.0-100.0) L Arterial Blood HCO3 17.0 mmol/L (22.0-26.0) *L Arterial Blood Oxygen Saturation 94.1 % (95-100) L Arterial Blood Base Excess -4.9 (-2-2) L Reed Test Positive Current Medications Medications (Trade) Dose Ordered Sig/Sylvester Route PRN Reason Start Time Stop Time Status Last Admin Dose Admin Acetaminophen (Tylenol) 650 mg Q4H PRN ORAL Fever (Temp>100.5F) 07/20/18 18:15 08/19/18 18:14 Albuterol/ Ipratropium (Albuterol/ Ipratropium) 3 ml Q4H PRN HHN Shortness of Breath 07/20/18 18:15 07/25/18 18:14 Dextrose (Dextrose 50%) 25 ml Q30M PRN IV Hypoglycemia 07/22/18 14:45 08/21/18 14:44 Dextrose (Dextrose 50%) 50 ml Q30M PRN IV Hypoglycemia 07/22/18 14:45 08/21/18 14:44 Insulin Aspart (NovoLOG) Q4HR SUBQ 07/22/18 17:00 08/21/18 16:59 07/23/18 10:38 Insulin Detemir (Levemir) 10 units Q12HR SUBQ 07/22/18 15:45 08/21/18 15:44 07/23/18 10:38 Lorazepam (Ativan 2mg/ml 1ml) 2 mg Q2H PRN IV agitation 07/20/18 18:15 07/27/18 18:14 07/22/18 10:16 Magnesium Sulfate 100 ml @ 100 mls/hr Q1H IVPB 07/23/18 12:45 07/23/18 14:44 07/23/18 12:23 Ondansetron HCl (Zofran) 4 mg Q6H PRN IVP Nausea & Vomiting 07/20/18 18:15 08/19/18 18:14 Potassium Chloride 40 meq/ Dextrose 1,020 ml @ 75 mls/hr [id number] IV 07/22/18 14:00 08/21/18 13:59 07/23/18 12:24 Potassium Chloride 40 meq/ Sodium Chloride 570 ml @ 142.5 mls/ hr ONCE ONCE IVPB 07/23/18 11:00 07/23/18 14:59 07/23/18 12:39 Sodium Phosphate 30 mm/Sodium Chloride 285 ml @ 47.5 mls/hr ONCE ONCE IV 07/23/18 12:45 07/23/18 18:44 Jaky Dasilva M.D. Jul 23, 2018 13:16
[2018-07-23] MEDS ORDERED: Zosyn 3.375gm q12h **Extended infusion IVPB SCH ×2 (14:00)
--- NOTE | 2018-07-23 15:00 | NUR ---
NURSE NOTES: Patient taken to MRI with transport team, Patient is awake and alert to name, she is unable to speak in full words but sounds out incomprehensible words, Saturations remains at 92-94% with HR at 94-96. currently on 3L/in Nasal cannula with no distress noted.
--- NOTE | 2018-07-23 15:40 | NUR ---
[employer]SI[employer] SI:UTI . PNA. DKA . RENAL FAILURE ACUTE ON CHRONIC VS: BP 167/65, P 102, T 98.7, RR 21, SpO2 100 on 3.0L NC WBC 11.0 HgB 11.0, Hct 34.2, Na 148, K 2.9, BUN 56, CR 2.3, Urine Blood 5+, Urine Protein 2+, Urine Glucose 2+, Amorphous Sediment: Moderate, pCO2 23.1, HCO3 17.0 IS:POTASSIUM CHLORIDE 100ml IVPB LEVEMIR 10 units SUBQ MAGNESIUM SULFATE 100ml IVPB CEFTRIAXONE 55mL IVPB ICU STATUS
--- NOTE | 2018-07-23 15:42 | NUR ---
*-* INSURANCE *-* ALL CLINICALS HAVE BEEN FAXED TO: [facility] [employer] [facility] FAX CLINICALS TO [phone]
[2018-07-23] MEDS ORDERED: cefTRIAXone 1 GM in D5W 55 ML IVPB SCH (17:00)
--- NOTE | 2018-07-23 17:00 | NUR ---
NURSE NOTES: Patient SCD's placed after confirmation of VD negative, awaiting for MRI scan results.
--- NOTE | 2018-07-23 18:18 | Internal Med Progress Note ---
Subjective Date of Service: Jul 23, 2018 Physician Name Wei Saez Attending Physician Jimmie Kerns MD Current Medications Medications (Trade) Dose Ordered Sig/Sylvester Route PRN Reason Start Time Stop Time Status Last Admin Dose Admin Acetaminophen (Tylenol) 650 mg Q4H PRN ORAL Fever (Temp>100.5F) 07/20/18 18:15 08/19/18 18:14 Albuterol/ Ipratropium (Albuterol/ Ipratropium) 3 ml Q4H PRN HHN Shortness of Breath 07/20/18 18:15 07/25/18 18:14 Ceftriaxone Sodium 1 gm/ Dextrose 55 ml @ 110 mls/hr Q24H IVPB 07/23/18 17:00 07/30/18 16:59 07/23/18 17:32 Dextrose (Dextrose 50%) 25 ml Q30M PRN IV Hypoglycemia 07/22/18 14:45 08/21/18 14:44 Dextrose (Dextrose 50%) 50 ml Q30M PRN IV Hypoglycemia 07/22/18 14:45 08/21/18 14:44 Insulin Aspart (NovoLOG) Q4HR SUBQ 07/22/18 17:00 08/21/18 16:59 07/23/18 10:38 Insulin Detemir (Levemir) 10 units Q12HR SUBQ 07/22/18 15:45 08/21/18 15:44 07/23/18 10:38 Lorazepam (Ativan 2mg/ml 1ml) 2 mg Q2H PRN IV agitation 07/20/18 18:15 07/27/18 18:14 07/22/18 10:16 Ondansetron HCl (Zofran) 4 mg Q6H PRN IVP Nausea & Vomiting 07/20/18 18:15 08/19/18 18:14 Potassium Chloride 40 meq/ Dextrose 1,020 ml @ 75 mls/hr [id number] IV 07/22/18 14:00 08/21/18 13:59 07/23/18 12:24 Sodium Phosphate 30 mm/Sodium Chloride 285 ml @ 47.5 mls/hr ONCE ONCE IV 07/23/18 12:45 07/23/18 18:44 07/23/18 17:32 Allergies: Coded Allergies: SULFA (SULFONAMIDE ANTIBIOTICS) (Verified Allergy, Unknown, 07/20/18) ROS Limited/Unobtainable: Yes Subjective 68 YO F admitted with altered mental status. Now diabetic ketoacidosis and UTI. Cover for Int Med-Dr Kerns. ICU Objective Last Vital Signs Date Time Temp Pulse Resp B/P (MAP) Pulse Ox O2 Delivery O2 Flow Rate FiO2 07/23/18 17:00 83 20 155/72 (99) 99 07/23/18 16:00 Nasal Cannula 3.0 07/23/18 16:00 97.4 07/20/18 20:44 28 Laboratory Tests Test 07/23/18 05:10 07/23/18 08:46 White Blood Count 10.6 K/UL (4.8-10.8) Red Blood Count 3.22 M/UL (4.20-5.40) L Hemoglobin 9.5 G/DL (12.0-16.0) L Hematocrit 28.3 % (37.0-47.0) L Mean Corpuscular Volume 88 FL (80-99) Mean Corpuscular Hemoglobin 29.5 PG (27.0-31.0) Mean Corpuscular Hemoglobin Concent 33.6 G/DL (32.0-36.0) Red Cell Distribution Width 14.8 % (11.6-14.8) Platelet Count 76 K/UL (150-450) L Mean Platelet Volume 10.3 FL (6.5-10.1) H Neutrophils (%) (Auto) % (45.0-75.0) Lymphocytes (%) (Auto) % (20.0-45.0) Monocytes (%) (Auto) % (1.0-10.0) Eosinophils (%) (Auto) % (0.0-3.0) Basophils (%) (Auto) % (0.0-2.0) Differential Total Cells Counted 100 Neutrophils % (Manual) 83 % (45-75) H Lymphocytes % (Manual) 8 % (20-45) L Monocytes % (Manual) 1 % (1-10) Eosinophils % (Manual) 1 % (0-3) Basophils % (Manual) 0 % (0-2) Band Neutrophils 7 % (0-8) Platelet Estimate Decreased L Platelet Morphology Normal Anisocytosis 1+ Sodium Level 148 MMOL/L (136-145) H Potassium Level 2.9 MMOL/L (3.5-5.1) L Chloride Level 116 MMOL/L (98-107) H Carbon Dioxide Level 19 MMOL/L (21-32) L Anion Gap 13 mmol/L (5-15) Blood Urea Nitrogen 56 mg/dL (7-18) H Creatinine 2.3 MG/DL (0.55-1.30) H Estimat Glomerular Filtration Rate 25.5 mL/min (>60) Glucose Level 74 MG/DL (74-106) Lactic Acid Level 1.80 mmol/L (0.4-2.0) Calcium Level 7.1 MG/DL (8.5-10.1) L Phosphorus Level 2.3 MG/DL (2.5-4.9) L Magnesium Level 1.4 MG/DL (1.8-2.4) L Total Bilirubin 0.7 MG/DL (0.2-1.0) Aspartate Amino Transf (AST/SGOT) 104 U/L (15-37) H Alanine Aminotransferase (ALT/SGPT) 52 U/L (12-78) Alkaline Phosphatase 84 U/L (46-116) Total Protein 4.8 G/DL (6.4-8.2) L Albumin 1.4 G/DL (3.4-5.0) L Globulin 3.4 g/dL Albumin/Globulin Ratio 0.4 (1.0-2.7) L Arterial Blood pH 7.485 (7.350-7.450) Arterial Blood Partial Pressure CO2 23.1 mmHg (35.0-45.0) *L Arterial Blood Partial Pressure O2 70.5 mmHg (75.0-100.0) L Arterial Blood HCO3 17.0 mmol/L (22.0-26.0) *L Arterial Blood Oxygen Saturation 94.1 % (95-100) L Arterial Blood Base Excess -4.9 (-2-2) L Reed Test Positive Microbiology Date/Time Source Procedure Growth Status 07/21/18 21:30 Urine,Clean Catch Urine Culture - Preliminary Gram Negative Bacillus 1 Resulted Intake and Output 07/22/18 07/23/18 19:00 07:00 Intake Total 481.5 ml 1014.583 ml Output Total 1200 ml 1150 ml Balance -718.5 ml -135.417 ml Intake IV Total 481.5 ml 1014.583 ml Output Urine Total 1200 ml 1150 ml # Bowel Movements 1 1 Objective General Appearance: WD/WN, no apparent distress EENT: PERRL/EOMI, normal ENT inspection Neck: non-tender, normal alignment, supple, normal inspection Cardiovascular: normal peripheral pulses, normal rate, regular rhythm, no gallop/murmur, no JVD Respiratory/Chest: chest wall non-tender, lungs clear, normal breath sounds, no respiratory distress, no accessory muscle use Abdomen: normal bowel sounds, non tender, soft, no organomegaly, no mass Extremities: normal range of motion, non-tender Neurologic: squeegee tender II-XII grossly normal, no motor/sensory deficits Skin: normal pigmentation, warm/dry Assessment/Plan Problem List: (1) Renal failure (ARF), acute on chronic (2) Diabetes mellitus type II, uncontrolled Assessment & Plan: Continue levemir insulin and novolog sliding scale (3) UTI (urinary tract infection) Assessment & Plan: proteus mirabilis. Continue zosyn per ID (4) Hyperosmolar coma (5) Acute encephalopathy Wei Saez MD Jul 23, 2018 18:18
--- NOTE | 2018-07-23 19:29 | NUR ---
HAND-OFF: Report given to SHIRIN Garay.
--- NOTE | 2018-07-23 19:30 | NUR ---
NURSE NOTES: Received report from SHIRIN Blanc. Patient awake, open eyes, mumbling, no s/s of acute distress noted, On 3 liters via N/C Oxygen saturation 100%. HOB elevated.On p200 for wound management. [place] draining with gage yellow urine with strong foul odor. IV line intact on Right wrist #22 and Left AC no s/s of infiltration. On D5W+ 40meq KCl at 75 ml/hr. Bed alarm on. Bed locked and in low position. Will continue plan of care.
--- NOTE | 2018-07-23 19:30 | Neurology Progress Note ---
Interim History Interim History Interim History Ms. Lopez feels "better." She is minimally more responsive today. She is awake and minimally more alert. She is able to say a few words. She is able to follow a few simple commands inconsistently. She is able to count fingers. She is still significantly encephalopathic. Review of Systems Neuro Review of Systems Unable to obtain. Objective Physical Exam Last Vital Signs Date Time Temp Pulse Resp B/P (MAP) Pulse Ox O2 Delivery O2 Flow Rate FiO2 07/23/18 18:00 94 18 149/68 (95) 99 07/23/18 16:00 Nasal Cannula 3.0 07/23/18 16:00 97.4 07/20/18 20:44 28 Laboratory Tests Test 07/23/18 05:10 07/23/18 08:46 White Blood Count 10.6 K/UL (4.8-10.8) Red Blood Count 3.22 M/UL (4.20-5.40) L Hemoglobin 9.5 G/DL (12.0-16.0) L Hematocrit 28.3 % (37.0-47.0) L Mean Corpuscular Volume 88 FL (80-99) Mean Corpuscular Hemoglobin 29.5 PG (27.0-31.0) Mean Corpuscular Hemoglobin Concent 33.6 G/DL (32.0-36.0) Red Cell Distribution Width 14.8 % (11.6-14.8) Platelet Count 76 K/UL (150-450) L Mean Platelet Volume 10.3 FL (6.5-10.1) H Neutrophils (%) (Auto) % (45.0-75.0) Lymphocytes (%) (Auto) % (20.0-45.0) Monocytes (%) (Auto) % (1.0-10.0) Eosinophils (%) (Auto) % (0.0-3.0) Basophils (%) (Auto) % (0.0-2.0) Differential Total Cells Counted 100 Neutrophils % (Manual) 83 % (45-75) H Lymphocytes % (Manual) 8 % (20-45) L Monocytes % (Manual) 1 % (1-10) Eosinophils % (Manual) 1 % (0-3) Basophils % (Manual) 0 % (0-2) Band Neutrophils 7 % (0-8) Platelet Estimate Decreased L Platelet Morphology Normal Anisocytosis 1+ Sodium Level 148 MMOL/L (136-145) H Potassium Level 2.9 MMOL/L (3.5-5.1) L Chloride Level 116 MMOL/L (98-107) H Carbon Dioxide Level 19 MMOL/L (21-32) L Anion Gap 13 mmol/L (5-15) Blood Urea Nitrogen 56 mg/dL (7-18) H Creatinine 2.3 MG/DL (0.55-1.30) H Estimat Glomerular Filtration Rate 25.5 mL/min (>60) Glucose Level 74 MG/DL (74-106) Lactic Acid Level 1.80 mmol/L (0.4-2.0) Calcium Level 7.1 MG/DL (8.5-10.1) L Phosphorus Level 2.3 MG/DL (2.5-4.9) L Magnesium Level 1.4 MG/DL (1.8-2.4) L Total Bilirubin 0.7 MG/DL (0.2-1.0) Aspartate Amino Transf (AST/SGOT) 104 U/L (15-37) H Alanine Aminotransferase (ALT/SGPT) 52 U/L (12-78) Alkaline Phosphatase 84 U/L (46-116) Total Protein 4.8 G/DL (6.4-8.2) L Albumin 1.4 G/DL (3.4-5.0) L Globulin 3.4 g/dL Albumin/Globulin Ratio 0.4 (1.0-2.7) L Arterial Blood pH 7.485 (7.350-7.450) Arterial Blood Partial Pressure CO2 23.1 mmHg (35.0-45.0) *L Arterial Blood Partial Pressure O2 70.5 mmHg (75.0-100.0) L Arterial Blood HCO3 17.0 mmol/L (22.0-26.0) *L Arterial Blood Oxygen Saturation 94.1 % (95-100) L Arterial Blood Base Excess -4.9 (-2-2) L Reed Test Positive Neurologic Exam Objective PHYSICAL EXAMINATION: GENERAL: She is a well-developed, well-nourished, black lady, lying in an ICU bed, in no acute distress. HEAD: Normocephalic and atraumatic. EENT: Examination benign. NECK: No neck rigidity was observed. NEUROLOGIC EXAMINATION: MENTAL STATUS EXAMINATION: She was awake and minimally more alert. She was able to say a few words. She was able to follow a few simple commands inconsistently. She was still significantly encephalopathic. Further mental status testing was impossible. SPEECH: She was able to say a few words and was dysarthric. LANGUAGE: She was able to comprehend a few simple commands and say a few words. CRANIAL NERVE EXAMINATION: II: She was able to count fingers. III, IV & : The external ocular movements were present. The pupils were 3 mm in diameter, equal, round, regular, and reactive sluggishly to light. V & VII: The corneal reflexes were brisk. She had a right VII central facial paresis. VIII: She was able to hear and had no nystagmus. IX & X: The gag reflex was present, but significantly diminished and delayed. XI: The sternocleidomastoids and trapezii did function. XII: The tongue was in the midline without any fasciculations or atrophy. MOTOR SYSTEM: The tone was normal in all four extremities. Examination of muscle mass revealed no focal wasting. Examination of power was impossible to perform accurately. She did however move all extremities on command - upper extremities better than lower extremities. SENSORY EXAMINATION: She responded appropriately to deep pain. Other sensory modalities could not be tested. REFLEXES: Trace+ and bilaterally symmetrical at the biceps, triceps, brachioradialis, and knees; zero at both ankles. The plantar responses were flexor bilaterally. COORDINATION, STANCE & GAIT: Could not be tested. Impression/Recommendations Diagnostic Impression 1. Ms. Clarke Lopez is a 68-year-old, black lady, of unknown handedness, who does have past history of hypertension and diabetes mellitus, who was brought to the hospital by the paramedics for three-week history of altered mental state , which had significantly worsened on the day of admission. On being evaluated in the emergency room, she was noted to be significantly hyperglycemic, had signs of acute kidney injury, was hypoxic and acidotic, and had a urinary tract infection. Since then, she has been treated for these problems, but continues to be significantly altered with regard to her mental state. 2. She feels "better." She is minimally more responsive today. She is awake and minimally more alert. She is able to say a few words. She is able to follow a few simple commands inconsistently. She is able to count fingers. She is still significantly encephalopathic. 3. On neurological examination, at this time, she is awake and minimally more alert. She is able to say a few words. She is able to follow a few simple commands inconsistently. She is still significantly encephalopathic. Further mental status testing is impossible. She is dysarthric. She was able to comprehend a few simple commands and say a few words. She has a right VII central facial paresis, globally diminished deep tendon reflexes that are symmetrical, and moves all four extremities on command - the upper extremities better than the lower extremities. 4. CT scan of the brain without contrast reveals atrophy and deep white matter changes, but no definite acute pathology. 5. Her laboratory data on admission revealed a blood glucose elevated to 723, sodium elevated at 147, chloride elevated at 105, BUN elevated at 126 with a creatinine elevated at 5.6, CK elevated at 2201, and albumin low at 2.9. The CBC revealed a WBC count elevated at 12,900 and hemoglobin borderline normal at 12.7 G. The arterial blood gas revealed a pH at 7.32, pCO2 at 25.8, and pO2 at 59.7 with low bicarbonate of 13.1. Her urinalysis revealed 3+ leukocyte esterase, 20-30 red blood cells, and too numerous to count white blood cells per high-power field. 6. Further laboratory tests have revealed a low folate. 7. The EEG done on 07/22/18 revealed a technically poor study due to EMG artifact. In addition, the study revealed a moderate toxic/metabolic encephalopathy. 8. The patient's history and neurological examination are most compatible with a significant toxic metabolic encephalopathy related to the hyperglycemia, acute kidney injury, hypoxia, and an acute infectious process, however, the right VII central facial paresis is a bothersome finding and could be indicative of focal brain pathology. Recommendations 1. Continue present management. 2. Continue to correct the patient's toxic metabolic imbalances. 3. Await MRI scan of the brain to evaluate her facial paresis and altered mental state. 4. Folic acid 1 mg daily. 5. As soon as the patient is more alert, she should be mobilized with the help of physical and occupational therapy. Srinivasa Bingham M.D., M.S.P.Srinivasa Vega MD Jul 23, 2018 19:30
--- NOTE | 2018-07-23 22:00 | NUR ---
NURSE NOTES: Pt's resting in bed, non-verbal, no acute distress noted. VS stable. Will continue to monitor.
--- NOTE | 2018-07-23 22:59 | Cardiology Progress Note ---
Assessment/Plan Assessment/Plan 1. Hypotension, likely [id number] shock, resolved, continue hydration, normal LV systolic function and no evidence of increased intracardiac filling pressure by echo. 2. Prolongation of QT interval could be due to hypomagnesemia, or hypokalemia, correct the electrolytes. 3. Slight elevation of troponin I level in this patient most likely non-ST elevation myocardial infarction type 2 or demand ischemia in presence of sepsis/ renal failure/pneumonia. No ischemic workup is warranted at this time. 4. Hyperosmolar coma. 5. Right lower and middle lobe pneumonia. Continue IV antibiotics and hydration. Subjective Subjective Sinus rhythm at rate of 94. Obtunded. Objective Last 24 Hour Vital Signs Date Time Temp Pulse Resp B/P (MAP) Pulse Ox O2 Delivery O2 Flow Rate FiO2 07/23/18 20:00 Nasal Cannula 3.0 07/23/18 18:00 94 18 149/68 (95) 99 07/23/18 17:00 83 20 155/72 (99) 99 07/23/18 16:00 79 07/23/18 16:00 Nasal Cannula 3.0 07/23/18 16:00 97.4 84 18 126/54 (78) 99 07/23/18 15:45 79 14 136/65 (88) 99 07/23/18 14:00 87 18 145/60 (88) 100 07/23/18 13:00 78 18 146/71 (96) 100 07/23/18 12:00 60 07/23/18 12:00 98.7 63 15 122/55 (77) 100 07/23/18 12:00 Nasal Cannula 3.0 07/23/18 11:00 66 17 123/51 (75) 100 07/23/18 10:00 102 19 167/65 (99) 100 07/23/18 09:00 75 21 121/45 (70) 100 07/23/18 09:00 98 07/23/18 08:00 Nasal Cannula 3.0 07/23/18 08:00 98.1 99 20 147/60 (89) 100 07/23/18 07:00 98.8 90 16 142/59 (86) 100 07/23/18 06:00 80 16 136/53 (80) 100 07/23/18 05:00 64 18 98/47 (64) 100 07/23/18 04:00 60 14 122/42 (68) 100 07/23/18 04:00 60 07/23/18 04:00 Nasal Cannula 3.0 07/23/18 03:00 62 16 119/46 (70) 100 07/23/18 02:00 63 16 121/38 (65) 100 07/23/18 01:00 63 16 123/47 (72) 100 07/23/18 00:00 98.9 63 16 120/42 (68) 100 07/23/18 00:00 Nasal Cannula 3.0 07/23/18 00:00 62 07/22/18 23:00 64 17 121/42 (68) 100 Intake and Output 07/22/18 07/23/18 19:00 07:00 Intake Total 481.5 ml 1014.583 ml Output Total 1200 ml 1150 ml Balance -718.5 ml -135.417 ml Intake IV Total 481.5 ml 1014.583 ml Output Urine Total 1200 ml 1150 ml # Bowel Movements 1 1 2D Echo: LVEF 55%, RVSP 33 mmHg, Grade I LVDD Laboratory Tests Test 07/23/18 05:10 07/23/18 08:46 White Blood Count 10.6 K/UL (4.8-10.8) Red Blood Count 3.22 M/UL (4.20-5.40) L Hemoglobin 9.5 G/DL (12.0-16.0) L Hematocrit 28.3 % (37.0-47.0) L Mean Corpuscular Volume 88 FL (80-99) Mean Corpuscular Hemoglobin 29.5 PG (27.0-31.0) Mean Corpuscular Hemoglobin Concent 33.6 G/DL (32.0-36.0) Red Cell Distribution Width 14.8 % (11.6-14.8) Platelet Count 76 K/UL (150-450) L Mean Platelet Volume 10.3 FL (6.5-10.1) H Neutrophils (%) (Auto) % (45.0-75.0) Lymphocytes (%) (Auto) % (20.0-45.0) Monocytes (%) (Auto) % (1.0-10.0) Eosinophils (%) (Auto) % (0.0-3.0) Basophils (%) (Auto) % (0.0-2.0) Differential Total Cells Counted 100 Neutrophils % (Manual) 83 % (45-75) H Lymphocytes % (Manual) 8 % (20-45) L Monocytes % (Manual) 1 % (1-10) Eosinophils % (Manual) 1 % (0-3) Basophils % (Manual) 0 % (0-2) Band Neutrophils 7 % (0-8) Platelet Estimate Decreased L Platelet Morphology Normal Anisocytosis 1+ Sodium Level 148 MMOL/L (136-145) H Potassium Level 2.9 MMOL/L (3.5-5.1) L Chloride Level 116 MMOL/L (98-107) H Carbon Dioxide Level 19 MMOL/L (21-32) L Anion Gap 13 mmol/L (5-15) Blood Urea Nitrogen 56 mg/dL (7-18) H Creatinine 2.3 MG/DL (0.55-1.30) H Estimat Glomerular Filtration Rate 25.5 mL/min (>60) Glucose Level 74 MG/DL (74-106) Lactic Acid Level 1.80 mmol/L (0.4-2.0) Calcium Level 7.1 MG/DL (8.5-10.1) L Phosphorus Level 2.3 MG/DL (2.5-4.9) L Magnesium Level 1.4 MG/DL (1.8-2.4) L Total Bilirubin 0.7 MG/DL (0.2-1.0) Aspartate Amino Transf (AST/SGOT) 104 U/L (15-37) H Alanine Aminotransferase (ALT/SGPT) 52 U/L (12-78) Alkaline Phosphatase 84 U/L (46-116) Total Protein 4.8 G/DL (6.4-8.2) L Albumin 1.4 G/DL (3.4-5.0) L Globulin 3.4 g/dL Albumin/Globulin Ratio 0.4 (1.0-2.7) L Arterial Blood pH 7.485 (7.350-7.450) Arterial Blood Partial Pressure CO2 23.1 mmHg (35.0-45.0) *L Arterial Blood Partial Pressure O2 70.5 mmHg (75.0-100.0) L Arterial Blood HCO3 17.0 mmol/L (22.0-26.0) *L Arterial Blood Oxygen Saturation 94.1 % (95-100) L Arterial Blood Base Excess -4.9 (-2-2) L Reed Test Positive Microbiology Date/Time Source Procedure Growth Status 07/21/18 21:30 Urine,Clean Catch Urine Culture - Preliminary Gram Negative Bacillus 1 Resulted Objective HEENT: Atraumatic and normocephalic. Anicteric. Pupils are equal, round, and reactive to light and accommodation. NECK: JVP less than 5 cm. No carotid bruits. Carotid upstrokes 2+ bilaterally. CARDIOVASCULAR: Normal S1, S2. Regular rate and rhythm. No murmurs, gallops, or rubs. LUNGS: Diminished breath sounds at both bases. ABDOMEN: Soft, nontender, and nondistended. No hepatosplenomegaly. Positive bowel sounds. EXTREMITIES: No evidence of edema, clubbing, or cyanosis. Abdelrahman Cardoso MD Jul 23, 2018 22:59
[2018-07-24] VITALS (19 sets, daily range): BP systolic 110–156; BP diastolic 49–79
--- NOTE | 2018-07-24 | NUR ---
NURSE NOTES: Pt's resting in bed, non-verbal, no acute distress noted. VS stable. Will continue to monitor.
[2018-07-24] MEDS: NovoLOG Insulin Flexpen SUBQ SCH ×6 (00:46→22:51)
--- NOTE | 2018-07-24 02:00 | NUR ---
NURSE NOTES: Pt's resting in bed, non-verbal, no acute distress noted. VS stable. Will continue to monitor.
--- NOTE | 2018-07-24 04:00 | NUR ---
NURSE NOTES: Pt's resting in bed, with eyes closed, VS stable. Will continue to monitor.
--- NOTE | 2018-07-24 06:00 | NUR ---
NURSE NOTES: Pt's resting in bed, with eyes closed, VS stable. Will continue to monitor.
[2018-07-24 06:22] LABS: HEMATOCRIT 26.3 % (37.0-47.0); HEMOGLOBIN 8.7 G/DL (12.0-16.0); MEAN CORPUSCULAR VOLUME 88 FL (80-99); PLATELET COUNT 82 K/UL (150-450); RED BLOOD COUNT 2.97 M/UL (4.20-5.40); RED CELL DISTRIBUTION WIDTH 15.2 % (11.6-14.8); WHITE BLOOD COUNT 8.5 K/UL (4.8-10.8)
--- NOTE | 2018-07-24 06:48 | General Progress Note ---
Assessment/Plan Problem List: (1) Rhabdomyolysis ICD Codes: M62.82 - Rhabdomyolysis SNOMED: 167396689 Qualifiers: Qualified Codes: M62.82 - Rhabdomyolysis (2) Pancreatitis ICD Codes: K85.90 - Acute pancreatitis without necrosis or infection, unspecified SNOMED: 51712993 Qualifiers: Qualified Codes: K85.90 - Acute pancreatitis without necrosis or infection, unspecified (3) Hyperglycemia ICD Codes: R73.9 - Hyperglycemia, unspecified SNOMED: 78862572 (4) Severe sepsis ICD Codes: A41.9 - Sepsis, unspecified organism; R65.20 - Severe sepsis without septic shock SNOMED: 36131085 (5) Elevated troponin ICD Codes: R74.8 - Abnormal levels of other serum enzymes SNOMED: 920049916, 946884768, 707872556 (6) Hyperosmolar coma ICD Codes: E11.01 - Type 2 diabetes mellitus with hyperosmolarity with coma SNOMED: 438497580 (7) Diabetes mellitus type II, uncontrolled ICD Codes: E11.65 - Type 2 diabetes mellitus with hyperglycemia SNOMED: 07095489, 673876582 (8) Renal failure (ARF), acute on chronic ICD Codes: N17.9 - Acute kidney failure, unspecified; N18.9 - Chronic kidney disease, unspecified SNOMED: 843119582 Assessment/Plan DC Levemir 10 units bid continue NISS every 4 hours Subjective ROS Limited/Unobtainable: Yes Allergies: Coded Allergies: SULFA (SULFONAMIDE ANTIBIOTICS) (Verified Allergy, Unknown, 07/20/18) Subjective events noted Item Value Date Time Bedside Blood Glucose 70 mg/dl 07/24/18 0500 Bedside Blood Glucose 71 mg/dl 07/24/18 0046 Bedside Blood Glucose 116 mg/dl 07/23/18 2055 Bedside Blood Glucose 94 mg/dl 07/23/18 1700 Bedside Blood Glucose 103 mg/dl 07/23/18 1300 Bedside Blood Glucose 133 mg/dl H 07/23/18 1038 Bedside Blood Glucose 90 mg/dl 07/23/18 0500 Objective Last 24 Hour Vital Signs Date Time Temp Pulse Resp B/P (MAP) Pulse Ox O2 Delivery O2 Flow Rate FiO2 07/24/18 04:00 67 07/24/18 04:00 Nasal Cannula 3.0 07/24/18 02:00 67 18 115/55 (75) 100 07/24/18 01:00 68 18 118/59 (78) 100 07/24/18 00:00 100 18 143/71 (95) 98 07/24/18 00:00 105 07/24/18 00:00 Nasal Cannula 3.0 07/23/18 23:00 98 20 157/93 (114) 98 07/23/18 22:00 103 18 157/93 (114) 100 07/23/18 21:00 105 19 157/79 (105) 100 07/23/18 20:00 75 07/23/18 20:00 97.5 64 18 120/59 (79) 100 07/23/18 20:00 Nasal Cannula 3.0 07/23/18 19:00 101 17 180/88 (118) 100 07/23/18 18:00 94 18 149/68 (95) 99 07/23/18 17:00 83 20 155/72 (99) 99 07/23/18 16:00 79 07/23/18 16:00 Nasal Cannula 3.0 07/23/18 16:00 97.4 84 18 126/54 (78) 99 07/23/18 15:45 79 14 136/65 (88) 99 07/23/18 14:00 87 18 145/60 (88) 100 07/23/18 13:00 78 18 146/71 (96) 100 07/23/18 12:00 60 07/23/18 12:00 98.7 63 15 122/55 (77) 100 07/23/18 12:00 Nasal Cannula 3.0 07/23/18 11:00 66 17 123/51 (75) 100 07/23/18 10:00 102 19 167/65 (99) 100 07/23/18 09:00 75 21 121/45 (70) 100 07/23/18 09:00 98 07/23/18 08:00 Nasal Cannula 3.0 07/23/18 08:00 98.1 99 20 147/60 (89) 100 07/23/18 07:00 98.8 90 16 142/59 (86) 100 Intake and Output 07/23/18 07/24/18 18:59 06:59 Intake Total 1802.5 ml 757.5 ml Output Total 835 ml 600 ml Balance 967.5 ml 157.5 ml Intake Free Water 50 ml IV Total 1772.5 ml 647.5 ml Tube Feeding 60 ml Other 30 ml Output Urine Total 835 ml 600 ml Laboratory Tests 07/23/18 08:46: Arterial Blood pH 7.485H, Arterial Blood Partial Pressure CO2 23.1*L, Arterial Blood Partial Pressure O2 70.5L, Arterial Blood HCO3 17.0*L, Arterial Blood Oxygen Saturation 94.1L, Arterial Blood Base Excess -4.9L, Reed Test Positive 07/24/18 05:35: White Blood Count 8.5, Red Blood Count 2.97L, Hemoglobin 8.7L, Hematocrit 26.3L , Mean Corpuscular Volume 88, Mean Corpuscular Hemoglobin 29.4, Mean Corpuscular Hemoglobin Concent 33.2, Red Cell Distribution Width 15.2H, Platelet Count 82L, Mean Platelet Volume 12.2H, Neutrophils (%) (Auto) , Lymphocytes (%) (Auto) , Monocytes (%) (Auto) , Eosinophils (%) (Auto) , Basophils (%) (Auto) , Sodium Level [Pending], Potassium Level [Pending], Chloride Level [Pending], Carbon Dioxide Level [Pending], Blood Urea Nitrogen [ Pending], Creatinine [Pending], Estimat Glomerular Filtration Rate [Pending], Glucose Level [Pending], Calcium Level [Pending], Phosphorus Level [Pending], Magnesium Level [Pending], Total Bilirubin [Pending], Aspartate Amino Transf ( AST/SGOT) [Pending], Alanine Aminotransferase (ALT/SGPT) [Pending], Alkaline Phosphatase [Pending], Total Protein [Pending], Albumin [Pending], Globulin [ Pending] Height (Feet): 5 Height (Inches): 3.00 Weight (Pounds): 160 General Appearance: lethargic Neck: normal alignment Cardiovascular: normal rate Respiratory/Chest: decreased breath sounds Abdomen: normal bowel sounds Objective Current Medications Medications (Trade) Dose Ordered Sig/Sylvester Route PRN Reason Start Time Stop Time Status Last Admin Dose Admin Acetaminophen (Tylenol) 650 mg Q4H PRN ORAL Fever (Temp>100.5F) 07/20/18 18:15 08/19/18 18:14 Albuterol/ Ipratropium (Albuterol/ Ipratropium) 3 ml Q4H PRN HHN Shortness of Breath 07/20/18 18:15 07/25/18 18:14 Ceftriaxone Sodium 1 gm/ Dextrose 55 ml @ 110 mls/hr Q24H IVPB 07/23/18 17:00 07/30/18 16:59 07/23/18 17:32 Dextrose (Dextrose 50%) 25 ml Q30M PRN IV Hypoglycemia 07/22/18 14:45 08/21/18 14:44 Dextrose (Dextrose 50%) 50 ml Q30M PRN IV Hypoglycemia 07/22/18 14:45 08/21/18 14:44 Insulin Aspart (NovoLOG) Q4HR SUBQ 07/22/18 17:00 08/21/18 16:59 07/23/18 20:54 Insulin Detemir (Levemir) 10 units Q12HR SUBQ 07/22/18 15:45 08/21/18 15:44 07/23/18 20:55 Lorazepam (Ativan 2mg/ml 1ml) 2 mg Q2H PRN IV agitation 07/20/18 18:15 07/27/18 18:14 07/22/18 10:16 Ondansetron HCl (Zofran) 4 mg Q6H PRN IVP Nausea & Vomiting 07/20/18 18:15 08/19/18 18:14 Potassium Chloride 40 meq/ Dextrose 1,020 ml @ 75 mls/hr [id number] IV 07/22/18 14:00 08/21/18 13:59 07/23/18 12:24 Luke Moran MD Jul 24, 2018 06:48
--- NOTE | 2018-07-24 07:15 | NUR ---
HAND-OFF: Report given to SHIRIN Blanc.
[2018-07-24 07:42] LABS: ANION GAP 11 mmol/L (5-15); BLOOD UREA NITROGEN 33 mg/dL (7-18); CALCIUM 6.9 MG/DL (8.5-10.1); CARBON DIOXIDE 19 MMOL/L (21-32); CHLORIDE 113 MMOL/L (98-107); CREATININE 1.6 MG/DL (0.55-1.30); SODIUM 143 MMOL/L (136-145)
[2018-07-24 07:46] LABS: POTASSIUM 5.3 MMOL/L (3.5-5.1)
[2018-07-24 07:54] LABS: ALANINE AMINOTRANSFERASE 75 U/L (12-78); ALBUMIN 1.4 G/DL (3.4-5.0); ALBUMIN/GLOBULIN RATIO 0.4 (1.0-2.7); ALKALINE PHOSPHATASE 122 U/L (46-116); ASPARTATE AMINO TRANSFERASE 148 U/L (15-37); BILIRUBIN,TOTAL 0.5 MG/DL (0.2-1.0)
--- NOTE | 2018-07-24 09:44 | NUR ---
*-* INSURANCE *-* ALL CLINICALS AND REVIEWS HAVE BEEN FAXED TO: [facility] [phone] SPOKE TO FABIAN JACQUES# [phone] [employer] FAX CLINICALS TO [phone]
--- NOTE | 2018-07-24 09:45 | NUR ---
NURSE NOTES: Dr. Richard informed of patient magnesium level of 1.6, ordered to have 2G of magnesium sulfate to be given, also ordered to d/c D5W with 40kcl to 1/2ns at 75ml/hr. will continue plan of care.
--- NOTE | 2018-07-24 09:52 | Pulmonolgy Critical Care Note ---
Critical Care - Asmt/Plan Problems: (1) Acute encephalopathy (2) ATN (acute tubular necrosis) (3) Hyperosmolar coma (4) Severe sepsis (5) DKA, type 1 Respiratory: monitor respiratory rate, adjust FIO2, CXR Cardiac: continue pressors, continue to monitor HR/BP Renal: F/U I&O, keep IV fluid, other - repeat electrolytes today Infectious Disease: check cultures, continue antibiotics Gastrointestinal: continue feedings/current rate Endocrine: monitor blood sugar, continue sliding scale insulin Neurologic: PRN Ativan Prophylaxis: Protonix Notes Reviewed: cardio, renal Discussed with: nurses, consultants, 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 - Objective Last 24 Hour Vital Signs Date Time Temp Pulse Resp B/P (MAP) Pulse Ox O2 Delivery O2 Flow Rate FiO2 07/24/18 08:00 Nasal Cannula 3.0 07/24/18 08:00 98.7 93 16 136/64 (88) 100 07/24/18 07:40 107 07/24/18 07:32 82 16 Nasal Cannula 2.0 28 07/24/18 07:31 Nasal Cannula 2.0 28 07/24/18 07:31 99 Nasal Cannula 2.0 28 07/24/18 07:00 93 21 147/75 (99) 98 07/24/18 06:00 97.8 70 19 152/61 (91) 99 07/24/18 05:00 70 19 116/51 (72) 99 07/24/18 04:00 67 07/24/18 04:00 Nasal Cannula 3.0 07/24/18 04:00 67 13 114/50 (71) 99 07/24/18 03:00 69 16 118/51 (73) 100 07/24/18 02:00 67 18 115/55 (75) 100 07/24/18 01:00 68 18 118/59 (78) 100 07/24/18 00:00 100 18 143/71 (95) 98 07/24/18 00:00 105 07/24/18 00:00 Nasal Cannula 3.0 07/23/18 23:00 98 20 157/93 (114) 98 07/23/18 22:00 103 18 157/93 (114) 100 07/23/18 21:00 105 19 157/79 (105) 100 07/23/18 20:00 75 3/25/19 20:00 97.5 64 18 120/59 (79) 100 07/23/18 20:00 Nasal Cannula 3.0 07/23/18 19:00 101 17 180/88 (118) 100 07/23/18 18:00 94 18 149/68 (95) 99 07/23/18 17:00 83 20 155/72 (99) 99 07/23/18 16:00 79 07/23/18 16:00 Nasal Cannula 3.0 07/23/18 16:00 97.4 84 18 126/54 (78) 99 07/23/18 15:45 79 14 136/65 (88) 99 07/23/18 14:00 87 18 145/60 (88) 100 07/23/18 13:00 78 18 146/71 (96) 100 07/23/18 12:00 60 07/23/18 12:00 98.7 63 15 122/55 (77) 100 07/23/18 12:00 Nasal Cannula 3.0 07/23/18 11:00 66 17 123/51 (75) 100 07/23/18 10:00 102 19 167/65 (99) 100 Status: awake Condition: critical HEENT: atraumatic Neck: full ROM Lungs: clear Heart: HR/BP stable Abdomen: soft, non-tender Extremities: no C/C/E Decubiti: location Micro: Microbiology Date/Time Source Procedure Growth Status 07/21/18 21:30 Urine,Clean Catch Urine Culture - Final Proteus Mirabilis Complete Accucheck: 70 Critical Care - Subjective ROS Limited/Unobtainable: Yes Interval Events: awake, not following commands FI02: 28 Tube Feeding Amount: 20 I&O: Intake and Output 07/23/18 07/24/18 19:00 07:00 Intake Total 1850.0 ml 1110 ml Output Total 810 ml 900 ml Balance 1040.0 ml 210 ml Intake Free Water 50 ml IV Total 1820.0 ml 900 ml Tube Feeding 160 ml Other 30 ml Output Urine Total 810 ml 900 ml Labs: Laboratory Tests Test 07/24/18 05:35 07/24/18 07:21 07/24/18 08:45 White Blood Count 8.5 K/UL (4.8-10.8) Red Blood Count 2.97 M/UL (4.20-5.40) L Hemoglobin 8.7 G/DL (12.0-16.0) L Hematocrit 26.3 % (37.0-47.0) L Mean Corpuscular Volume 88 FL (80-99) Mean Corpuscular Hemoglobin 29.4 PG (27.0-31.0) Mean Corpuscular Hemoglobin Concent 33.2 G/DL (32.0-36.0) Red Cell Distribution Width 15.2 % (11.6-14.8) H Platelet Count 82 K/UL (150-450) L Mean Platelet Volume 12.2 FL (6.5-10.1) H Neutrophils (%) (Auto) % (45.0-75.0) Lymphocytes (%) (Auto) % (20.0-45.0) Monocytes (%) (Auto) % (1.0-10.0) Eosinophils (%) (Auto) % (0.0-3.0) Basophils (%) (Auto) % (0.0-2.0) Sodium Level 143 MMOL/L (136-145) Potassium Level 5.3 MMOL/L (3.5-5.1) #H Chloride Level 113 MMOL/L (98-107) H Carbon Dioxide Level 19 MMOL/L (21-32) L Anion Gap 11 mmol/L (5-15) Blood Urea Nitrogen 33 mg/dL (7-18) H Creatinine 1.6 MG/DL (0.55-1.30) H Estimat Glomerular Filtration Rate 38.5 mL/min (>60) Glucose Level 273 MG/DL (74-106) #H Calcium Level 6.9 MG/DL (8.5-10.1) L Phosphorus Level 3.0 MG/DL (2.5-4.9) Magnesium Level 1.6 MG/DL (1.8-2.4) L Total Bilirubin 0.5 MG/DL (0.2-1.0) Aspartate Amino Transf (AST/SGOT) 148 U/L (15-37) H Alanine Aminotransferase (ALT/SGPT) 75 U/L (12-78) Alkaline Phosphatase 122 U/L (46-116) H Total Protein 5.3 G/DL (6.4-8.2) L Albumin 1.4 G/DL (3.4-5.0) L Globulin 3.9 g/dL Albumin/Globulin Ratio 0.4 (1.0-2.7) L Arterial Blood pH 7.485 (7.350-7.450) Arterial Blood Partial Pressure CO2 23.9 mmHg (35.0-45.0) *L Arterial Blood Partial Pressure O2 97.5 mmHg (75.0-100.0) Arterial Blood HCO3 17.6 mmol/L (22.0-26.0) *L Arterial Blood Oxygen Saturation 97.6 % (95-100) Arterial Blood Base Excess -4.7 (-2-2) L Reed Test Positive Mara Richard MD Jul 24, 2018 09:52
[2018-07-24] MEDS ORDERED: NOVOLOG100 UNITS1 SUBQ (10:47)
--- NOTE | 2018-07-24 10:48 | NUR ---
[facility] DEPT., ABDOMEN X-RAY FOR NGT PLMT COMPLETED.-P.DYE
--- NOTE | 2018-07-24 11:15 | Nephrology Progress Note ---
Assessment/Plan Problem List: (1) Renal failure (ARF), acute on chronic Assessment: better (2) Hyperosmolar coma (3) UTI (urinary tract infection) (4) Acute encephalopathy (5) Diabetes mellitus type II, uncontrolled (6) Hypokalemia Assessment: resolved Plan DC IVF discussed with RN follow labs continue with TF and hydrate via NG will need GT Subjective Subjective Awake nonverbal apparently this is pt's baseline Objective Objective Last 24 Hour Vital Signs Date Time Temp Pulse Resp B/P (MAP) Pulse Ox O2 Delivery O2 Flow Rate FiO2 07/24/18 08:00 Nasal Cannula 3.0 07/24/18 08:00 98.7 93 16 136/64 (88) 100 07/24/18 07:40 107 07/24/18 07:32 82 16 Nasal Cannula 2.0 28 07/24/18 07:31 Nasal Cannula 2.0 28 07/24/18 07:31 99 Nasal Cannula 2.0 28 07/24/18 07:00 93 21 147/75 (99) 98 07/24/18 06:00 97.8 70 19 152/61 (91) 99 07/24/18 05:00 70 19 116/51 (72) 99 07/24/18 04:00 67 07/24/18 04:00 Nasal Cannula 3.0 07/24/18 04:00 67 13 114/50 (71) 99 07/24/18 03:00 69 16 118/51 (73) 100 07/24/18 02:00 67 18 115/55 (75) 100 07/24/18 01:00 68 18 118/59 (78) 100 07/24/18 00:00 100 18 143/71 (95) 98 07/24/18 00:00 105 07/24/18 00:00 Nasal Cannula 3.0 07/23/18 23:00 98 20 157/93 (114) 98 07/23/18 22:00 103 18 157/93 (114) 100 07/23/18 21:00 105 19 157/79 (105) 100 07/23/18 20:00 75 07/23/18 20:00 97.5 64 18 120/59 (79) 100 07/23/18 20:00 Nasal Cannula 3.0 07/23/18 19:00 101 17 180/88 (118) 100 07/23/18 18:00 94 18 149/68 (95) 99 07/23/18 17:00 83 20 155/72 (99) 99 07/23/18 16:00 79 07/23/18 16:00 Nasal Cannula 3.0 07/23/18 16:00 97.4 84 18 126/54 (78) 99 07/23/18 15:45 79 14 136/65 (88) 99 07/23/18 14:00 87 18 145/60 (88) 100 07/23/18 13:00 78 18 146/71 (96) 100 07/23/18 12:00 60 07/23/18 12:00 98.7 63 15 122/55 (77) 100 07/23/18 12:00 Nasal Cannula 3.0 Intake and Output 07/23/18 07/24/18 19:00 07:00 Intake Total 1850.0 ml 1110 ml Output Total 810 ml 900 ml Balance 1040.0 ml 210 ml Intake Free Water 50 ml IV Total 1820.0 ml 900 ml Tube Feeding 160 ml Other 30 ml Output Urine Total 810 ml 900 ml Laboratory Tests 07/24/18 05:35: White Blood Count 8.5, Red Blood Count 2.97L, Hemoglobin 8.7L, Hematocrit 26.3L , Mean Corpuscular Volume 88, Mean Corpuscular Hemoglobin 29.4, Mean Corpuscular Hemoglobin Concent 33.2, Red Cell Distribution Width 15.2H, Platelet Count 82L, Mean Platelet Volume 12.2H, Neutrophils (%) (Auto) , Lymphocytes (%) (Auto) , Monocytes (%) (Auto) , Eosinophils (%) (Auto) , Basophils (%) (Auto) 07/24/18 07:21: Sodium Level 143, Potassium Level 5.3#H, Chloride Level 113H, Carbon Dioxide Level 19L, Anion Gap 11, Blood Urea Nitrogen 33H, Creatinine 1.6H, Estimat Glomerular Filtration Rate 38.5, Glucose Level 273#H, Calcium Level 6.9L, Phosphorus Level 3.0, Magnesium Level 1.6L, Total Bilirubin 0.5, Aspartate Amino Transf (AST/SGOT) 148H, Alanine Aminotransferase (ALT/SGPT) 75, Alkaline Phosphatase 122H, Total Protein 5.3L, Albumin 1.4L, Globulin 3.9, Albumin/ Globulin Ratio 0.4L 07/24/18 08:45: Arterial Blood pH 7.485H, Arterial Blood Partial Pressure CO2 23.9*L, Arterial Blood Partial Pressure O2 97.5, Arterial Blood HCO3 17.6*L, Arterial Blood Oxygen Saturation 97.6, Arterial Blood Base Excess -4.7L, Reed Test Positive Height (Feet): 5 Height (Inches): 3.00 Weight (Pounds): 161 Cardiovascular: normal rate Respiratory/Chest: lungs clear Extremities: other - no edema Pepe Bowling MD Jul 24, 2018 11:15
--- NOTE | 2018-07-24 11:20 | NUR ---
NURSE NOTES: Dr. Bowling updated on patient condition at the bedside, no verbal orders given at this time, he will place order for bmp for 07/25/18 at 0400. will continue to monitor.
--- NOTE | 2018-07-24 12:00 | NUR ---
PT EVALUATION NOTE Patient seen for PT evaluation, see complete evaluation for details. Patient presents with generalized weakness and impaired functional mobility. Patient able to follow simple commands inconsistently. Patient will be seen for a 3 day trial of skilled inpatient physical therapy to assess ability to participate and progress with physical therapy. Anticipate discharge home with family assistance once cleared by MD. DME needs to be determined based on progress. Addendum: 07/24/18 at 1307 by LOYDA HAND PT Amended: Links added.
--- NOTE | 2018-07-24 13:04 | NUR ---
Social Service Note BRITTANEY spoke with patient's son Zack [phone]. Zack is aware of impending transfer to [facility]. Zack prefers [place] location, as PMD is at this hospital. Son feels patient will require SNF placement for short term rehab prior to returning home. Code status addressed and patient is full code. BRITTANEY informed CM of son's preferences however is aware that [facility] will obtain available bed. Will monitor and be available as needed. Son at patient's bedside.
--- NOTE | 2018-07-24 13:30 | NUR ---
NURSE NOTES: dr. Carl called to inform he is consulted to the case for a dti wound, assessed at the bedside and will place order recommendation, patient tolerated procedure.
--- NOTE | 2018-07-24 14:46 | Infectious Diseases Prog Note ---
Assessment/Plan Assessment/Plan ASSESSMENT: The patient is a 68-year-old female with, 1. Probable urinary tract infection. -u/a wbc tnct; ucx >100k P. mirabilsi (denney S); repaet ucx <10k P. mirabilsi ( denney S) 2. Probable aspiration pneumonia. -CXR" Hyperinflated lungs of COPD. Bilateral perihilar opacities, similar to prior study, may be edema or infiltrate. 3. Probable sepsis. 4. Afebrile. 5. Hyperglycemia, improving Leukocytosis, resolved Acute encephalopathy- probably toxic metabolic -07/23 MRI brain p -07/20 CT head: Mild age-related volume loss. Negative for acute intracranial bleed or mass effect - Diabetes. - Dementia. - Hypertension. PLAN: 1. Cont Ceftriaxone #2 (abx d#09/04) for UTI and probable PNA -07/23 SP Zosyn #4 -07/20 SP Ceftriaxone x1 2. Monitor CBC/CMP 3. Neuro f/u, f/u MRI 4. Monitor cultures (blood, urine, sputum). 5. Monitor chest x-ray. 6. HIV ab/ am Thank you for this consultation. I will follow the patient with you during this hospitalization. Subjective Allergies: Coded Allergies: SULFA (SULFONAMIDE ANTIBIOTICS) (Verified Allergy, Unknown, 07/20/18) Subjective afebrile at 3L NC no pressors leukocytosis resolvd Bcx NTD Objective Vital Signs Last 24 Hour Vital Signs Date Time Temp Pulse Resp B/P (MAP) Pulse Ox O2 Delivery O2 Flow Rate FiO2 07/24/18 14:00 107 17 139/67 (91) 100 07/24/18 13:00 99.1 113 17 142/59 (86) 100 07/24/18 12:00 Nasal Cannula 3.0 07/24/18 12:00 65 15 130/49 (76) 98 07/24/18 11:45 66 07/24/18 11:00 104 18 147/79 (101) 100 07/24/18 10:00 84 18 131/64 (86) 100 07/24/18 09:00 90 19 156/65 (95) 100 07/24/18 08:00 Nasal Cannula 3.0 07/24/18 08:00 98.7 93 16 136/64 (88) 100 07/24/18 07:55 114 3/26/19 07:40 107 07/24/18 07:32 82 16 Nasal Cannula 2.0 28 07/24/18 07:31 Nasal Cannula 2.0 28 07/24/18 07:31 99 Nasal Cannula 2.0 28 07/24/18 07:00 93 21 147/75 (99) 98 07/24/18 06:00 97.8 70 19 152/61 (91) 99 07/24/18 05:00 70 19 116/51 (72) 99 07/24/18 04:00 67 07/24/18 04:00 Nasal Cannula 3.0 07/24/18 04:00 67 13 114/50 (71) 99 07/24/18 03:00 69 16 118/51 (73) 100 07/24/18 02:00 67 18 115/55 (75) 100 07/24/18 01:00 68 18 118/59 (78) 100 07/24/18 00:00 100 18 143/71 (95) 98 07/24/18 00:00 105 07/24/18 00:00 Nasal Cannula 3.0 07/23/18 23:00 98 20 157/93 (114) 98 07/23/18 22:00 103 18 157/93 (114) 100 07/23/18 21:00 105 19 157/79 (105) 100 07/23/18 20:00 75 07/23/18 20:00 97.5 64 18 120/59 (79) 100 07/23/18 20:00 Nasal Cannula 3.0 07/23/18 19:00 101 17 180/88 (118) 100 07/23/18 18:00 94 18 149/68 (95) 99 07/23/18 17:00 83 20 155/72 (99) 99 07/23/18 16:00 79 07/23/18 16:00 Nasal Cannula 3.0 07/23/18 16:00 97.4 84 18 126/54 (78) 99 07/23/18 15:45 79 14 136/65 (88) 99 Height (Feet): 5 Height (Inches): 3.00 Weight (Pounds): 161 Objective HEENT: No pale conjunctivae. No icterus. NECK: No lymphadenopathy. CHEST: Clear. HEART: S1 and S2. ABDOMEN: Soft. EXTREMITIES: No cyanosis. NEUROLOGIC: Lethargic. Microbiology Date/Time Source Procedure Growth Status 07/21/18 21:30 Urine,Clean Catch Urine Culture - Final Proteus Mirabilis Complete Laboratory Tests Test 07/24/18 05:35 07/24/18 07:21 07/24/18 08:45 White Blood Count 8.5 K/UL (4.8-10.8) Red Blood Count 2.97 M/UL (4.20-5.40) L Hemoglobin 8.7 G/DL (12.0-16.0) L Hematocrit 26.3 % (37.0-47.0) L Mean Corpuscular Volume 88 FL (80-99) Mean Corpuscular Hemoglobin 29.4 PG (27.0-31.0) Mean Corpuscular Hemoglobin Concent 33.2 G/DL (32.0-36.0) Red Cell Distribution Width 15.2 % (11.6-14.8) H Platelet Count 82 K/UL (150-450) L Mean Platelet Volume 12.2 FL (6.5-10.1) H Neutrophils (%) (Auto) % (45.0-75.0) Lymphocytes (%) (Auto) % (20.0-45.0) Monocytes (%) (Auto) % (1.0-10.0) Eosinophils (%) (Auto) % (0.0-3.0) Basophils (%) (Auto) % (0.0-2.0) Sodium Level 143 MMOL/L (136-145) Potassium Level 5.3 MMOL/L (3.5-5.1) #H Chloride Level 113 MMOL/L (98-107) H Carbon Dioxide Level 19 MMOL/L (21-32) L Anion Gap 11 mmol/L (5-15) Blood Urea Nitrogen 33 mg/dL (7-18) H Creatinine 1.6 MG/DL (0.55-1.30) H Estimat Glomerular Filtration Rate 38.5 mL/min (>60) Glucose Level 273 MG/DL (74-106) #H Calcium Level 6.9 MG/DL (8.5-10.1) L Phosphorus Level 3.0 MG/DL (2.5-4.9) Magnesium Level 1.6 MG/DL (1.8-2.4) L Total Bilirubin 0.5 MG/DL (0.2-1.0) Aspartate Amino Transf (AST/SGOT) 148 U/L (15-37) H Alanine Aminotransferase (ALT/SGPT) 75 U/L (12-78) Alkaline Phosphatase 122 U/L (46-116) H Total Protein 5.3 G/DL (6.4-8.2) L Albumin 1.4 G/DL (3.4-5.0) L Globulin 3.9 g/dL Albumin/Globulin Ratio 0.4 (1.0-2.7) L Arterial Blood pH 7.485 (7.350-7.450) Arterial Blood Partial Pressure CO2 23.9 mmHg (35.0-45.0) *L Arterial Blood Partial Pressure O2 97.5 mmHg (75.0-100.0) Arterial Blood HCO3 17.6 mmol/L (22.0-26.0) *L Arterial Blood Oxygen Saturation 97.6 % (95-100) Arterial Blood Base Excess -4.7 (-2-2) L Reed Test Positive Current Medications Medications (Trade) Dose Ordered Sig/Sylvester Route PRN Reason Start Time Stop Time Status Last Admin Dose Admin Acetaminophen (Tylenol) 650 mg Q4H PRN ORAL Fever (Temp>100.5F) 07/20/18 18:15 08/19/18 18:14 Albuterol/ Ipratropium (Albuterol/ Ipratropium) 3 ml Q4H PRN HHN Shortness of Breath 07/20/18 18:15 07/25/18 18:14 Ceftriaxone Sodium 1 gm/ Sodium Chloride 55 ml @ 110 mls/hr Q24H IVPB 07/24/18 17:00 07/31/18 16:59 Dextrose (Dextrose 50%) 25 ml Q30M PRN IV Hypoglycemia 07/22/18 14:45 08/21/18 14:44 Dextrose (Dextrose 50%) 50 ml Q30M PRN IV Hypoglycemia 07/22/18 14:45 08/21/18 14:44 Insulin Aspart (NovoLOG) Q4HR SUBQ 07/22/18 17:00 08/21/18 16:59 07/24/18 13:14 Lorazepam (Ativan 2mg/ml 1ml) 2 mg Q2H PRN IV agitation 3/22/19 18:15 07/27/18 18:14 07/22/18 10:16 Ondansetron HCl (Zofran) 4 mg Q6H PRN IVP Nausea & Vomiting 07/20/18 18:15 08/19/18 18:14 Jaky Dasilva M.D. Jul 24, 2018 14:46
--- NOTE | 2018-07-24 15:15 | NUR ---
NURSE NOTES: Philippe called for update on patient, no beds available at this time. will call back.
[2018-07-24 15:17] LABS: ANION GAP 15 mmol/L (5-15); BLOOD UREA NITROGEN 32 mg/dL (7-18); CALCIUM 7.1 MG/DL (8.5-10.1); CARBON DIOXIDE 19 MMOL/L (21-32); CHLORIDE 117 MMOL/L (98-107); CREATININE 1.4 MG/DL (0.55-1.30); POTASSIUM 3.4 MMOL/L (3.5-5.1); SODIUM 151 MMOL/L (136-145)
--- NOTE | 2018-07-24 15:22 | NUR ---
DEEP SUBMERGENCE VEHICLE CREWMEMBERLAMP SHADE SEWER SI:UTI . PNA . DKA . RENAL FAILURE ACUTE ON CHRONIC VS: BP 142/59, P 113, T 99.1, RR 17, SpO2 98 on 3.0L NC RBC 2.97, HgB 8.7, Hct 26.3, pCO2 23.9, HCO3 17.6Na 151, K 3.4, BUN 32, CR 1.4 IS:NS IV x1L MAGNESIUM 100ml IVPB NOVOLOG SUBQ POTASSIUM CHLORIDE 1.020mL IV ICU STATUS
--- NOTE | 2018-07-24 15:30 | NUR ---
NURSE NOTES: Patient remains calm and resting in bed family at the bedside, explained [place], family aware of transfer.
--- NOTE | 2018-07-24 15:45 | NUR ---
NURSE NOTES:WOUND CARE NOTES:Pt presented on admission with partially opened sacral DTPI that is rapidly evolving despite all interventions to prevent decline.Wound has irregular shape. Base of wound maroon with fluctuance,with multiple openings -25% slough with scattered openings that are moist and viable (L)12.6cm x (W)16.8cm. Non-blanching erythema periwound. L buttocks in close proximity to sacrum , DTPI noted (L)3.1cm x (W)2cm. Base of wound is purple and fluctuant with red margins . Non-blanchable erythema periwound. DTPI noted to L Ischium (L)1.1cm x (W)0.5cm. Base of wound is purple and fluctuant with red margins. Non-blanchable erythema periwound. L ischial noted to have dark skin tone without induration or fluctuance.Both heels are dry and blanchable. Pt is on an APM/CHETAN mattress overlay and observed positioned on side with pillows. Pt's sister at bedside and informed of pressure injuries.Educated sister of comorbidities contributing to skin decline. Tx.Plan:Cleanse sacrum with Saline .Apply Therahoney to open areas. Apply Triad Paste periwound. Cover with Optifoam drsg Daily and prn. Apply Cavilon Skin Barrier to L buttocks DTPI .Cover with Optifoam drsg. Change Q3days and prn.(Please do not massage injured site) Apply Cavilon Skin Barrier to L ischium. Cover with Optifoam drsg Q3days and prn. Apply Cavilon Skin Barrier to each heel .Cover each heel with Optifoam drsg .Change every 7 days and prn. Air Fluidized mattress. Reposition at least every 2hours or as tolerated. Side to Side positioning only. Off-load heels with pillow.
--- NOTE | 2018-07-24 15:53 | NUR ---
TRAINING TECHNICIAN NOTES SPOKE WITH GLORIA FROM [facility] [phone] MADE AWARE OF PT BEING STABLE FOR DISCHARGE. REFAXED CLINICALS TO [phone]. WAITING FOR BED.
--- NOTE | 2018-07-24 15:58 | NUR ---
*-* INSURANCE *-* ALL CLINICALS AND REVIEWS HAVE BEEN reFAXED TO: [facility] [phone] SPOKE TO FABIAN JACQUES# [phone] [employer] [facility]ACHI FAX CLINICALS TO [phone]
[2018-07-24] MEDS ORDERED: Albuterol/Ipratropium 3ml neb HHN PRN (16:11)
[2018-07-24] MEDS ORDERED: LORazepam Inj 2mg/ml 1ml IV PRN (16:11)
--- NOTE | 2018-07-24 16:40 | NUR ---
NURSE NOTES: Patient transferred to 4E to floor 414-1, no patient belongings at the bedside due to son taken home, medication given to the nurse SHIRIN roberson. Patient remains awake and alert to name x1 to name, she remains able to slur words and at moments make three to five worded sentences, she remains on Glucerna 1.2 at 30ml/hr.
--- NOTE | 2018-07-24 16:51 | NUR ---
NURSE NOTES: [facility]. pt with NG tube on Right nare. Iv intact. no s/s of hyper/hypoglycemia noted. denies pain at this time. will continue to monitor
[2018-07-24] MEDS ORDERED: cefTRIAXone 1 GM in NS 55 ML IVPB SCH ×4 (17:00)
--- NOTE | 2018-07-24 17:41 | Neurology Progress Note ---
Interim History Interim History Interim History Ms. Lopez feels "better." Her cerebration is still very slow. She is more responsive today. She is awake and more alert. She is able to say a few words. She is able to follow a few simple commands more consistently. She is able to count fingers. She is still significantly encephalopathic. Review of Systems Neuro Review of Systems Unable to obtain. Objective Physical Exam Last Vital Signs Date Time Temp Pulse Resp B/P (MAP) Pulse Ox O2 Delivery O2 Flow Rate FiO2 07/24/18 16:00 98.9 101 18 123/62 (82) 100 07/24/18 16:00 Nasal Cannula 3.0 07/24/18 07:32 28 Laboratory Tests Test 07/24/18 05:35 07/24/18 07:21 07/24/18 08:45 07/24/18 14:45 White Blood Count 8.5 K/UL (4.8-10.8) Red Blood Count 2.97 M/UL (4.20-5.40) L Hemoglobin 8.7 G/DL (12.0-16.0) L Hematocrit 26.3 % (37.0-47.0) L Mean Corpuscular Volume 88 FL (80-99) Mean Corpuscular Hemoglobin 29.4 PG (27.0-31.0) Mean Corpuscular Hemoglobin Concent 33.2 G/DL (32.0-36.0) Red Cell Distribution Width 15.2 % (11.6-14.8) H Platelet Count 82 K/UL (150-450) L Mean Platelet Volume 12.2 FL (6.5-10.1) H Neutrophils (%) (Auto) % (45.0-75.0) Lymphocytes (%) (Auto) % (20.0-45.0) Monocytes (%) (Auto) % (1.0-10.0) Eosinophils (%) (Auto) % (0.0-3.0) Basophils (%) (Auto) % (0.0-2.0) Sodium Level 143 MMOL/L (136-145) 151 MMOL/L (136-145) H Potassium Level 5.3 MMOL/L (3.5-5.1) #H 3.4 MMOL/L (3.5-5.1) L Chloride Level 113 MMOL/L (98-107) H 117 MMOL/L (98-107) H Carbon Dioxide Level 19 MMOL/L (21-32) L 19 MMOL/L (21-32) L Anion Gap 11 mmol/L (5-15) 15 mmol/L (5-15) Blood Urea Nitrogen 33 mg/dL (7-18) H 32 mg/dL (7-18) H Creatinine 1.6 MG/DL (0.55-1.30) H 1.4 MG/DL (0.55-1.30) H Estimat Glomerular Filtration Rate 38.5 mL/min (>60) 45.1 mL/min (>60) Glucose Level 273 MG/DL (74-106) #H 147 MG/DL (74-106) #H Calcium Level 6.9 MG/DL (8.5-10.1) L 7.1 MG/DL (8.5-10.1) L Phosphorus Level 3.0 MG/DL (2.5-4.9) Magnesium Level 1.6 MG/DL (1.8-2.4) L Total Bilirubin 0.5 MG/DL (0.2-1.0) Aspartate Amino Transf (AST/SGOT) 148 U/L (15-37) H Alanine Aminotransferase (ALT/SGPT) 75 U/L (12-78) Alkaline Phosphatase 122 U/L (46-116) H Total Protein 5.3 G/DL (6.4-8.2) L Albumin 1.4 G/DL (3.4-5.0) L Globulin 3.9 g/dL Albumin/Globulin Ratio 0.4 (1.0-2.7) L Arterial Blood pH 7.485 (7.350-7.450) Arterial Blood Partial Pressure CO2 23.9 mmHg (35.0-45.0) *L Arterial Blood Partial Pressure O2 97.5 mmHg (75.0-100.0) Arterial Blood HCO3 17.6 mmol/L (22.0-26.0) *L Arterial Blood Oxygen Saturation 97.6 % (95-100) Arterial Blood Base Excess -4.7 (-2-2) L Reed Test Positive Neurologic Exam Objective PHYSICAL EXAMINATION: GENERAL: She is a well-developed, well-nourished, black lady, lying in bed, in no acute distress. HEAD: Normocephalic and atraumatic. EENT: Examination benign. NECK: No neck rigidity was observed. NEUROLOGIC EXAMINATION: MENTAL STATUS EXAMINATION: She was awake and more alert. She was able to say a few more words. She was able to follow a few simple commands more consistently. She was still significantly encephalopathic. Further mental status testing was impossible. SPEECH: She was able to say a few words and was dysarthric. LANGUAGE: She was able to comprehend a few simple commands and say a few words. CRANIAL NERVE EXAMINATION: II: She was able to count fingers. III, IV & : The external ocular movements were present. The pupils were 3 mm in diameter, equal, round, regular, and reactive sluggishly to light. V & VII: The corneal reflexes were brisk. She had a right VII central facial paresis. VIII: She was able to hear and had no nystagmus. IX & X: The gag reflex was present, but significantly diminished and delayed. XI: The sternocleidomastoids and trapezii did function. XII: The tongue was in the midline without any fasciculations or atrophy. MOTOR SYSTEM: The tone was normal in all four extremities. Examination of muscle mass revealed no focal wasting. Examination of power was impossible to perform accurately. She did however move all extremities on command - upper extremities better than lower extremities. SENSORY EXAMINATION: She responded appropriately to deep pain. Other sensory modalities could not be tested. REFLEXES: Trace+ and bilaterally symmetrical at the biceps, triceps, brachioradialis, and knees; zero at both ankles. The plantar responses were flexor bilaterally. COORDINATION, STANCE & GAIT: Could not be tested. Impression/Recommendations Diagnostic Impression 1. Ms. Clarke Lopez is a 68-year-old, black lady, of unknown handedness, who does have past history of hypertension and diabetes mellitus, who was brought to the hospital by the paramedics for three-week history of altered mental state , which had significantly worsened on the day of admission. On being evaluated in the emergency room, she was noted to be significantly hyperglycemic, had signs of acute kidney injury, was hypoxic and acidotic, and had a urinary tract infection. Since then, she has been treated for these problems, but continues to be significantly altered with regard to her mental state. 2. She feels "better." Her cerebration is still very slow. She is more responsive today. She is awake and more alert. She is able to say a few words. She is able to follow a few simple commands more consistently. She is able to count fingers. She is still significantly encephalopathic. 3. On neurological examination, at this time, she is awake and more alert. She is able to say a few more words. She is able to follow a few simple commands more consistently. She is still significantly encephalopathic. Further mental status testing is impossible. She is dysarthric. She was able to comprehend a few simple commands and say a few words. She has a right VII central facial paresis, globally diminished deep tendon reflexes that are symmetrical, and moves all four extremities on command - the upper extremities better than the lower extremities. 4. CT scan of the brain without contrast reveals atrophy and deep white matter changes, but no definite acute pathology. 5. Her laboratory data on admission revealed a blood glucose elevated to 723, sodium elevated at 147, chloride elevated at 105, BUN elevated at 126 with a creatinine elevated at 5.6, CK elevated at 2201, and albumin low at 2.9. The CBC revealed a WBC count elevated at 12,900 and hemoglobin borderline normal at 12.7 G. The arterial blood gas revealed a pH at 7.32, pCO2 at 25.8, and pO2 at 59.7 with low bicarbonate of 13.1. Her urinalysis revealed 3+ leukocyte esterase, 20-30 red blood cells, and too numerous to count white blood cells per high-power field. 6. Further laboratory tests have revealed a low folate. 7. The EEG done on 07/22/18 revealed a technically poor study due to EMG artifact. In addition, the study revealed a moderate toxic/metabolic encephalopathy. 8. The patient's history and neurological examination are most compatible with a significant toxic metabolic encephalopathy related to the hyperglycemia, acute kidney injury, hypoxia, and an acute infectious process, however, the right VII central facial paresis is a bothersome finding and could be indicative of focal brain pathology. Recommendations 1. Continue present management. 2. Continue to correct the patient's toxic metabolic imbalances. 3. Await MRI scan of the brain to evaluate her facial paresis and altered mental state. 4. Folic acid 1 mg daily. 5. As soon as the patient is more alert, she should be mobilized with the help of physical and occupational therapy. Srinivasa Bingham M.D., M.S.P.H. Srinivasa Bingham MD Jul 24, 2018 17:41
--- NOTE | 2018-07-24 18:03 | Internal Med Progress Note ---
Subjective Date of Service: Jul 24, 2018 Physician Name Wei Saez Attending Physician Jimmie Kerns MD Current Medications Medications (Trade) Dose Ordered Sig/Sylvester Route PRN Reason Start Time Stop Time Status Last Admin Dose Admin Acetaminophen (Tylenol) 650 mg Q4H PRN ORAL Fever (Temp>100.5F) 07/24/18 16:11 08/23/18 16:10 Albuterol/ Ipratropium (Albuterol/ Ipratropium) 3 ml Q4H PRN HHN Shortness of Breath 07/24/18 16:11 07/29/18 16:10 Ceftriaxone Sodium 1 gm/ Sodium Chloride 55 ml @ 110 mls/hr Q24H IVPB 07/24/18 17:00 07/31/18 16:59 07/24/18 17:38 Dextrose (Dextrose 50%) 25 ml Q30M PRN IV Hypoglycemia 07/24/18 16:15 08/21/18 14:44 Dextrose (Dextrose 50%) 50 ml Q30M PRN IV Hypoglycemia 07/24/18 16:15 08/21/18 14:44 Insulin Aspart (NovoLOG) Q4HR SUBQ 07/24/18 17:00 08/21/18 16:59 07/24/18 17:39 Lorazepam (Ativan 2mg/ml 1ml) 2 mg Q2H PRN IV agitation 07/24/18 16:11 07/31/18 16:10 Ondansetron HCl (Zofran) 4 mg Q6H PRN IVP Nausea & Vomiting 07/24/18 16:11 08/23/18 16:10 Allergies: Coded Allergies: SULFA (SULFONAMIDE ANTIBIOTICS) (Verified Allergy, Unknown, 07/20/18) ROS Limited/Unobtainable: No Constitutional: Reports: no symptoms HEENT: Reports: no symptoms Cardiovascular: Reports: no symptoms Respiratory: Reports: no symptoms Gastrointestinal/Abdominal: Reports: no symptoms Genitourinary: Reports: no symptoms Neurologic/Psychiatric: Reports: no symptoms Subjective 68 YO F admitted with altered mental status. Now diabetic ketoacidosis and UTI. Cover for Int Med-Dr Kerns. Objective Last Vital Signs Date Time Temp Pulse Resp B/P (MAP) Pulse Ox O2 Delivery O2 Flow Rate FiO2 07/24/18 16:00 98.9 101 18 123/62 (82) 100 07/24/18 16:00 Nasal Cannula 3.0 07/24/18 07:32 28 Laboratory Tests Test 07/24/18 05:35 07/24/18 07:21 07/24/18 08:45 07/24/18 14:45 White Blood Count 8.5 K/UL (4.8-10.8) Red Blood Count 2.97 M/UL (4.20-5.40) L Hemoglobin 8.7 G/DL (12.0-16.0) L Hematocrit 26.3 % (37.0-47.0) L Mean Corpuscular Volume 88 FL (80-99) Mean Corpuscular Hemoglobin 29.4 PG (27.0-31.0) Mean Corpuscular Hemoglobin Concent 33.2 G/DL (32.0-36.0) Red Cell Distribution Width 15.2 % (11.6-14.8) H Platelet Count 82 K/UL (150-450) L Mean Platelet Volume 12.2 FL (6.5-10.1) H Neutrophils (%) (Auto) % (45.0-75.0) Lymphocytes (%) (Auto) % (20.0-45.0) Monocytes (%) (Auto) % (1.0-10.0) Eosinophils (%) (Auto) % (0.0-3.0) Basophils (%) (Auto) % (0.0-2.0) Sodium Level 143 MMOL/L (136-145) 151 MMOL/L (136-145) H Potassium Level 5.3 MMOL/L (3.5-5.1) #H 3.4 MMOL/L (3.5-5.1) L Chloride Level 113 MMOL/L (98-107) H 117 MMOL/L (98-107) H Carbon Dioxide Level 19 MMOL/L (21-32) L 19 MMOL/L (21-32) L Anion Gap 11 mmol/L (5-15) 15 mmol/L (5-15) Blood Urea Nitrogen 33 mg/dL (7-18) H 32 mg/dL (7-18) H Creatinine 1.6 MG/DL (0.55-1.30) H 1.4 MG/DL (0.55-1.30) H Estimat Glomerular Filtration Rate 38.5 mL/min (>60) 45.1 mL/min (>60) Glucose Level 273 MG/DL (74-106) #H 147 MG/DL (74-106) #H Calcium Level 6.9 MG/DL (8.5-10.1) L 7.1 MG/DL (8.5-10.1) L Phosphorus Level 3.0 MG/DL (2.5-4.9) Magnesium Level 1.6 MG/DL (1.8-2.4) L Total Bilirubin 0.5 MG/DL (0.2-1.0) Aspartate Amino Transf (AST/SGOT) 148 U/L (15-37) H Alanine Aminotransferase (ALT/SGPT) 75 U/L (12-78) Alkaline Phosphatase 122 U/L (46-116) H Total Protein 5.3 G/DL (6.4-8.2) L Albumin 1.4 G/DL (3.4-5.0) L Globulin 3.9 g/dL Albumin/Globulin Ratio 0.4 (1.0-2.7) L Arterial Blood pH 7.485 (7.350-7.450) Arterial Blood Partial Pressure CO2 23.9 mmHg (35.0-45.0) *L Arterial Blood Partial Pressure O2 97.5 mmHg (75.0-100.0) Arterial Blood HCO3 17.6 mmol/L (22.0-26.0) *L Arterial Blood Oxygen Saturation 97.6 % (95-100) Arterial Blood Base Excess -4.7 (-2-2) L Reed Test Positive Microbiology Date/Time Source Procedure Growth Status 07/21/18 21:30 Urine,Clean Catch Urine Culture - Final Proteus Mirabilis Complete Intake and Output 07/23/18 07/24/18 19:00 07:00 Intake Total 1850.0 ml 1185 ml Output Total 810 ml 900 ml Balance 1040.0 ml 285 ml Intake Free Water 50 ml IV Total 1820.0 ml 975 ml Tube Feeding 160 ml Other 30 ml Output Urine Total 810 ml 900 ml Objective General Appearance: WD/WN, no apparent distress EENT: PERRL/EOMI, normal ENT inspection Neck: non-tender, normal alignment, supple, normal inspection Cardiovascular: normal peripheral pulses, normal rate, regular rhythm, no gallop/murmur, no JVD Respiratory/Chest: chest wall non-tender, lungs clear, normal breath sounds, no respiratory distress, no accessory muscle use Abdomen: normal bowel sounds, non tender, soft, no organomegaly, no mass Extremities: normal range of motion, non-tender Neurologic: operations and maintenance specialist II-XII grossly normal, no motor/sensory deficits Skin: normal pigmentation, warm/dry Assessment/Plan Problem List: (1) Renal failure (ARF), acute on chronic (2) Diabetes mellitus type II, uncontrolled Assessment & Plan: Continue levemir insulin and novolog sliding scale (3) UTI (urinary tract infection) Assessment & Plan: proteus mirabilis. Continue zosyn per ID (4) Hyperosmolar coma (5) Acute encephalopathy Assessment/Plan Transfer to [facility] when bed available. Wei Saez MD Jul 24, 2018 18:03
[2018-07-24] MEDS ORDERED: CEFTRIAXONE1 G2 IV (18:06)
[2018-07-24] MEDS ORDERED: D5 1/2NS 1000ml IV ONE (18:52)
[2018-07-24] MEDS ORDERED: Tubing IV Secondary IV ONE ×2 (18:52→18:59)
[2018-07-24] MEDS ORDERED: NS 275ml ONE ×3 (18:52→19:06)
[2018-07-24] MEDS ORDERED: D5NS 1000ml IV ONE (18:59)
--- NOTE | 2018-07-24 19:13 | Diagnostic Imaging Report ---
Indication: Change and altered mental status Technique: The head was imaged in a 1.5 Verenice magnet. Sequences obtained include sagittal and axial T1 FLAIR, axial T2 fast spin echo with fat saturation, axial T2 FLAIR, diffusion and ADC map. Comparison: None Findings: There is mild prominence of the sulci, ventricles, and basal cisterns consistent with atrophy. There is significant motion limiting evaluation. There is no restricted diffusion. Campos-white differentiation is normal. There is no mass effect, midline shift, edema, or hemorrhage. There are no abnormal extra-axial or intra-axial fluid collections. The corpus callosum and sella are unremarkable. The brainstem and cerebellum are unremarkable. Bone marrow signal within the visualized osseous structures appears age appropriate and unremarkable otherwise. Impression: No acute intracranial findings. Mild atrophy and evidence of chronic small vessel disease involving white matter tracts. Significant motion artifacts
--- NOTE | 2018-07-24 19:14 | Cardiology Report ---
APPROVED REPORT EKG Measurement Heart [id number] Normal sinus rhythm T wave abnormality, consider inferolateral ischemia Abnormal ECG
--- NOTE | 2018-07-24 19:15 | Diagnostic Imaging Report ---
Indication: NG tube placement Comparison: 07/22/2018 Single view of the abdomen obtained Findings: NG tube side port and tip are both within the stomach in good position. IMPRESSION: NG tube in good position
--- NOTE | 2018-07-24 19:16 | Diagnostic Imaging Report ---
APPROVED REPORT CPT Code: 12066 Present Symptoms Shortness of breath Comments: Alered BILATERAL: Imaging reveals a patent deep venous system bilaterally. There is no evidence of thrombus within the common femoral, superficial femoral, popliteal or tibial segments. The greater saphenous veins are within normal limits. Doppler indicates normal spontaneous flow within these segments.
--- NOTE | 2018-07-24 19:39 | NUR ---
HAND-OFF: Report given to SHIRIN Costello.
--- NOTE | 2018-07-24 19:40 | NUR ---
NURSE NOTES: Report received from SHIRIN Aguayo. Pt is in stable condition. Will be being transferred to [facility] when a bed is available. Med rec done. Pt is sitting in bed, upright aspiration precautions in place. HOB at 45 degrees. Bed locked in lowest position side railsx3. NG tube in place in R nare, Confirmed by Xray. 2 IV sites intact and asymptomatic: L forearm, 22 g NS lock for abx. R wrist 22 g running 1/2 NS at 75 ml/h. Will continue to monitor pt.
--- NOTE | 2018-07-24 22:35 | NUR ---
NURSE NOTES: Report given to Nurse Contreras RN at [facility]. Pt will be going to room 2825-A. Phone number at [facility]- [phone]. Accepting MD at [facility] is Kiley. All CD reports, med rec and D/C transport summary will be transported with pt.
--- NOTE | 2018-07-24 22:49 | Cardiology Progress Note ---
Assessment/Plan Assessment/Plan 1. Hypotension, likely [id number] shock, resolved, continue hydration, normal LV systolic function and no evidence of increased intracardiac filling pressure by echo. 2. Prolongation of QT interval could be due to hypomagnesemia, or hypokalemia, correct the electrolytes. 3. Slight elevation of troponin I level in this patient most likely non-ST elevation myocardial infarction type 2 or demand ischemia in presence of sepsis/ renal failure/pneumonia. No ischemic workup is warranted at this time. 4. Hyperosmolar coma. 5. Right lower and middle lobe pneumonia. Continue IV antibiotics and hydration. Subjective Subjective Sinus rhythm at rate of 94. Obtunded. Objective Last 24 Hour Vital Signs Date Time Temp Pulse Resp B/P (MAP) Pulse Ox O2 Delivery O2 Flow Rate FiO2 07/24/18 21:00 Nasal Cannula 3.0 07/24/18 20:00 98.1 100 20 110/60 (77) 98 07/24/18 19:42 Nasal Cannula 3.0 32 07/24/18 19:42 95 Nasal Cannula 3.0 32 07/24/18 16:00 98.9 101 18 123/62 (82) 100 07/24/18 16:00 Nasal Cannula 3.0 07/24/18 16:00 116 07/24/18 15:00 121 19 153/63 (93) 100 07/24/18 14:00 107 17 139/67 (91) 100 07/24/18 13:00 99.1 113 17 142/59 (86) 100 07/24/18 12:00 Nasal Cannula 3.0 07/24/18 12:00 65 15 130/49 (76) 98 07/24/18 11:45 66 07/24/18 11:00 104 18 147/79 (101) 100 07/24/18 10:00 84 18 131/64 (86) 100 07/24/18 09:00 90 19 156/65 (95) 100 07/24/18 08:00 Nasal Cannula 3.0 07/24/18 08:00 98.7 93 16 136/64 (88) 100 07/24/18 07:55 114 07/24/18 07:40 107 07/24/18 07:32 82 16 Nasal Cannula 2.0 28 07/24/18 07:31 Nasal Cannula 2.0 28 07/24/18 07:31 99 Nasal Cannula 2.0 28 07/24/18 07:00 93 21 147/75 (99) 98 07/24/18 06:00 97.8 70 19 152/61 (91) 99 07/24/18 05:00 70 19 116/51 (72) 99 07/24/18 04:00 67 07/24/18 04:00 Nasal Cannula 3.0 07/24/18 04:00 67 13 114/50 (71) 99 07/24/18 03:00 69 16 118/51 (73) 100 07/24/18 02:00 67 18 115/55 (75) 100 07/24/18 01:00 68 18 118/59 (78) 100 07/24/18 00:00 100 18 143/71 (95) 98 07/24/18 00:00 105 07/24/18 00:00 Nasal Cannula 3.0 07/23/18 23:00 98 20 157/93 (114) 98 Intake and Output 07/23/18 07/24/18 19:00 07:00 Intake Total 1850.0 ml 1185 ml Output Total 810 ml 900 ml Balance 1040.0 ml 285 ml Intake Free Water 50 ml IV Total 1820.0 ml 975 ml Tube Feeding 160 ml Other 30 ml Output Urine Total 810 ml 900 ml Laboratory Tests Test 07/24/18 05:35 07/24/18 07:21 07/24/18 08:45 07/24/18 14:45 White Blood Count 8.5 K/UL (4.8-10.8) Red Blood Count 2.97 M/UL (4.20-5.40) L Hemoglobin 8.7 G/DL (12.0-16.0) L Hematocrit 26.3 % (37.0-47.0) L Mean Corpuscular Volume 88 FL (80-99) Mean Corpuscular Hemoglobin 29.4 PG (27.0-31.0) Mean Corpuscular Hemoglobin Concent 33.2 G/DL (32.0-36.0) Red Cell Distribution Width 15.2 % (11.6-14.8) H Platelet Count 82 K/UL (150-450) L Mean Platelet Volume 12.2 FL (6.5-10.1) H Neutrophils (%) (Auto) % (45.0-75.0) Lymphocytes (%) (Auto) % (20.0-45.0) Monocytes (%) (Auto) % (1.0-10.0) Eosinophils (%) (Auto) % (0.0-3.0) Basophils (%) (Auto) % (0.0-2.0) Sodium Level 143 MMOL/L (136-145) 151 MMOL/L (136-145) H Potassium Level 5.3 MMOL/L (3.5-5.1) #H 3.4 MMOL/L (3.5-5.1) L Chloride Level 113 MMOL/L (98-107) H 117 MMOL/L (98-107) H Carbon Dioxide Level 19 MMOL/L (21-32) L 19 MMOL/L (21-32) L Anion Gap 11 mmol/L (5-15) 15 mmol/L (5-15) Blood Urea Nitrogen 33 mg/dL (7-18) H 32 mg/dL (7-18) H Creatinine 1.6 MG/DL (0.55-1.30) H 1.4 MG/DL (0.55-1.30) H Estimat Glomerular Filtration Rate 38.5 mL/min (>60) 45.1 mL/min (>60) Glucose Level 273 MG/DL (74-106) #H 147 MG/DL (74-106) #H Calcium Level 6.9 MG/DL (8.5-10.1) L 7.1 MG/DL (8.5-10.1) L Phosphorus Level 3.0 MG/DL (2.5-4.9) Magnesium Level 1.6 MG/DL (1.8-2.4) L Total Bilirubin 0.5 MG/DL (0.2-1.0) Aspartate Amino Transf (AST/SGOT) 148 U/L (15-37) H Alanine Aminotransferase (ALT/SGPT) 75 U/L (12-78) Alkaline Phosphatase 122 U/L (46-116) H Total Protein 5.3 G/DL (6.4-8.2) L Albumin 1.4 G/DL (3.4-5.0) L Globulin 3.9 g/dL Albumin/Globulin Ratio 0.4 (1.0-2.7) L Arterial Blood pH 7.485 (7.350-7.450) Arterial Blood Partial Pressure CO2 23.9 mmHg (35.0-45.0) *L Arterial Blood Partial Pressure O2 97.5 mmHg (75.0-100.0) Arterial Blood HCO3 17.6 mmol/L (22.0-26.0) *L Arterial Blood Oxygen Saturation 97.6 % (95-100) Arterial Blood Base Excess -4.7 (-2-2) L Reed Test Positive Objective HEENT: Atraumatic and normocephalic. Anicteric. Pupils are equal, round, and reactive to light and accommodation. NECK: JVP less than 5 cm. No carotid bruits. Carotid upstrokes 2+ bilaterally. CARDIOVASCULAR: Normal S1, S2. Regular rate and rhythm. No murmurs, gallops, or rubs. LUNGS: Diminished breath sounds at both bases. ABDOMEN: Soft, nontender, and nondistended. No hepatosplenomegaly. Positive bowel sounds. EXTREMITIES: No evidence of edema, clubbing, or cyanosis. Abdelrahman Cardoso MD Jul 24, 2018 22:49
--- NOTE | 2018-07-24 23:31 | NUR ---
NURSE NOTES: Pt transported in stable condition. VSS. Transported with [facility] ambulance co. with EMT [place]. Pt sent with barron cath and NS lock. NG tube feed held for transport. Communicated aspiration precautions, HOB elevated, seizure precautions.
--- NOTE | 2018-07-24 23:50 | NUR ---
Family informed of pt transport to [facility] 2825-A
--- NOTE | 2018-07-26 07:56 | Discharge Summary ---
Discharge Summary Discharge Summary _ DATE OF ADMISSION: 07/20/2018 DATE OF DISCHARGE: 07/24/2018 DISCHARGED BY: Dr. Kerns : REASON FOR ADMISSION: 68 years old female with past medical history of hypertension, diabetes mellitus type 2, Alzheimer dementia, was brought to emergency department accompanied by her son for altered mental status. During the last week patient daily demonstrated poor oral intake and decreased appetite, however her status got progressively worse in the last 36 hours up to the point that she became suddenly altered. Upon evaluation in emergency department vital signs revealed hypotension, but no fever. Laboratory workup revealed leukocytosis with WBC 12.9, stable hemoglobin and hematocrit. Sodium 147. BUN 126, creatinine 5.6. Glucose 723. Lactic acid 5.4. Total CK 2201. Troponin 0 0.345. ProBNP 1976. Albumin 2.9. Lipase 1113. Acetone negative. Urinalysis with evidence of UTI. ABG revealed evidence of metabolic acidosis. EKG revealed normal sinus rhythm, no acute ischemic changes. Chest x-ray demonstrated bilateral perihilar interstitial congestion. CT of the head revealed no evidence of acute intracranial bleeding or mass- effect. Mild age-related volume loss was noted. In emergency department patient was started on aggressive IV hydration. Insulin bolus given, followed up by starting insulin drip. Patient pancultured and started on broad-spectrum antibiotics. Blood pressure responded to fluid challenge. Patient was transferred to ICU for further management. CONSULTANTS: lawn mower sharpener Dr. Cardoso neurologist Dr. Bingham pulmonary Dr. Richard ID specialist Dr. Khan distance learning program coordinator Dr. Moran wheel buffer Dr. Bowling [facility] COURSE: Patient admitted to ICU. Patient was continued on generous IV hydration and insulin drip as per protocol. Hemodynamic status was closely monitored. Blood pressure remained stable. Hall Manager follow. Echocardiogram revealed preserved ejection fraction and no evidence of increased intracardiac filling pressure. Per lawn mower sharpener, hypotension was likely due to hypovolemic shock , which resolved. Patient also noted to have slight elevation of troponin, which was like most likely due to NSTEMI type II versus demand ischemia in presence of sepsis, renal failure and pneumonia. No ischemic workup was warranted at this time, as per lawn mower sharpener. Noted prolongation of QT interval, which was likely due to electrolyte abnormalities. Hypomagnesemia and hypokalemia were corrected. Track Manager followed. Patient initially was on insulin drip and when anion gap closed, patient started on long-acting Levemir twice a day and sliding scale of insulin every 4 hours. Diabetic tube feeding via NG tube provided. Hemoglobin A1c 10.5, clearly not at goal. Patient will need further optimization of anti-glycemic regimen upon transfer. Supplemental oxygen provided as needed to keep pulse oximetry above 92%. Venous duplex bilateral lower extremity revealed no evidence of acute DVT. DVT prophylaxis provided. Patient was followed-up with chest x-ray, which revealed unchanged bilateral perihilar opacities, edema versus infiltrate. Hyperinflated lungs noted, consistent with COPD. Antibiotics provided as per ID recommendation. Blood cultures were negative. Urine culture revealed Proteus. According to infectious disease specialist, patient had a UTI and probable aspiration pneumonia. Leukocytosis resolved. No fevers. Neurologist closely followed. Patient undergone MRI of the brain, which revealed no acute intracranial pathology, but showed mild atrophy and evidence of chronic small vessel disease , involving white matter tracts. EEG, as read by neurologist, was abnormal and consistent with encephalopathy of moderate to severe degree, most probably with toxic metabolic component as evidenced by triphasic waveforms. Per neurologist, patient history, neurological examination, laboratory data, and imaging were most consistent with toxic metabolic encephalopathy, related to hyperglycemia, acute kidney injury, hypoxia and acute infectious process. Patient also demonstrated right seventh central facial paresis, possibly indicative of focal brain pathology. However MRI of the brain failed to show any pathology. Laboratory workup revealed evidence of folic acid deficiency. Patient was started on folic acid supplement. Patient was started to work with physical therapist. IV hydration continued. Renal parameters and electrolytes were closely monitored. Electrolytes/potassium, magnesium corrected as needed. Nephrotoxins were avoided. Prior to discharge BUN from initial 126 down to 32, and creatinine from initial 5.6 down to 1.4. According to wheel buffer, patient had acute on chronic renal failure, which resolved with IV hydration. Recommended to avoid nephrotoxic in future. NG tube was inserted for nutritional support. Diabetic tube feeding provided as per registered dietitian recommendation to meet nutritional needs. GI prophylaxis provided. Aspiration precaution maintained. Patient stabilized and was ready for transfer to [place] as per her insurance for further management. FINAL DIAGNOSES: Acute toxic metabolic encephalopathy Severe sepsis Hypotension likely due to hypovolemic shock - resolved Hyperosmolar coma Diabetes mellitus type 2 out of control ( [id number]) Mild elevation of troponin likely likely NSTEMI type II , possible demand ischemia (in the presence of sepsis, renal failure, pneumonia) Proteus UTI Probably aspiration PNA Acute on chronic renal failure-resolved Acute tubular necrosis Rhabdomyolysis Pancreatitis Dementia DISCHARGE MEDICATIONS: See Medication Reconciliation list. DISCHARGE INSTRUCTIONS: Patient was transferred to [facility] as per her insurance. I have been assigned to dictate discharge summary for this account. I was not involved in the patient's management. Radha Flores NP Jul 26, 2018 07:56
--- NOTE | 2018-07-26 16:32 | Diagnostic Imaging Report ---
Indication:Elevated Bun and Creatinine. Technique: Grayscale and duplex Doppler imaging of the kidneys performed. Comparison: None Findings: The size, contour, and echogenicity of both kidneys are within normal limits. There is no hydronephrosis. The IVC and urinary bladder are unremarkable. Right kidney 10.4 cm. Left kidney 11.9 cm. IMPRESSION: Negative exam
--- NOTE | 2018-07-26 16:32 | Diagnostic Imaging Report ---
Indication: Dyspnea Comparison: 07/21/2018 A single view chest radiograph was obtained. Findings: Cardiomegaly again noted. Patchy perihilar infiltrates again demonstrated. NG tube has been passed and is in good position. IMPRESSION: NG tube in good position. Patchy infiltrates. No change otherwise
--- NOTE | 2018-07-26 16:38 | Diagnostic Imaging Report ---
Indication: NG tube Comparison: None Single view of the abdomen obtained Findings: NG tube is projected over the stomach in good position. IMPRESSION: NG tube satisfactory in position
== END 2018-07-24 23:30 | disposition short-term general hospital (02) | DRG 871 ==
LOC: EDBD 13:35 → EMR 14:50 → EDBEDREQSVC 16:06 → EDBEDREQ 16:06 → ICU 16:18 → EDBD 16:18 → EDBEDREQ 17:14 → 4E 07-24 16:40
DX: A41.9 Sepsis, unspecified organism (principal); E11.01 Type 2 diabetes mellitus with hyperosmolarity with coma; G92 Toxic encephalopathy; K85.90 Acute pancreatitis without necrosis or infection, unspecified; J69.0 Pneumonitis due to inhalation of food and vomit; I21.A1 Myocardial infarction type 2; N17.0 Acute kidney failure with tubular necrosis; R57.1 Hypovolemic shock; I24.8 Other forms of acute ischemic heart disease; N39.0 Urinary tract infection, site not specified; M62.82 Rhabdomyolysis; R65.20 Severe sepsis without septic shock; E11.65 Type 2 diabetes mellitus with hyperglycemia; B96.4 Proteus (mirabilis) (morganii) as the cause of diseases classified elsewhere; F03.90 Unspecified dementia, unspecified severity, without behavioral disturbance, psychotic disturbance, mood disturbance, and anxiety; Z88.2 Allergy status to sulfonamides
CPT/HCPCS: 36415; 36600; 70450; 70551; 71045; 74018; 76770; 80048; 80053; 80076; 81001; 81003; 82009; 82043; 82140; 82248; 82270; 82306; 82550; 82553; 82570; 82607; 82746; 82803; 82962; 83036; 83605; 83615; 83690; 83735; 83880; 84100; 84133; 84300; 84443; 84484; 84550; 85007; 85025; 85610; 85651; 85730; 86140; 86592; 87040; 87070; 87081; 87086; 87181; 87205; 89050; 93005; 93306; 93970; 94664; 94760; 95819; 96361; 96365; 96368; 96375; 99291; 99292; J1815; S5561